=== PATIENT | female | born 1945 | race Caucasian/White ===

== ENCOUNTER → 2020-10-30 14:18 | Outpatient (CLI) | payer MEDICARE, SELFPAY ==
--- NOTE | ~2020-10-30 | XR_ITS ---
EXAMINATION: XR humerus RT, XR wrist RT w scaphoid, XR forearm RT 2V, XR elbow RT min 3V, XR shoulder RT min 2V DATE: 10/30/2020 16:04 INDICATION: Right arm pain and limited range of motion TECHNIQUE: 1. AP internally and externally rotated, AP oblique externally rotated and axillary views of the righ t shoulder were obtained. 2. Internal and externally rotated views of the right humerus were obtained. 3. AP, lateral and 2 oblique views of the right elbow were obtained. 4. AP and lateral views of the right forearm were obtained. 5. 5 views of the right wrist were obtained including PA, lateral, oblique, ulnar deviated and navicu lar views of the right wrist were obtained. COMPARISON: None FINDINGS: Right shoulder and upper arm: Normal alignment. No fracture.Mild glenohumeral osteoarthritis with mild nonuniform joint space narr owing and small marginal osteophytes. Acromioclavicular joint space is relatively preserved. Visualiz ed portions of the lungs are clear. Soft tissues are unremarkable. Right elbow, wrist and forearm: Small minimally depressed intra-articular fracture of the right radial head. There is <1 mm depressio n of the fracture fragment which comprises approximately 25% of the articular surface area with <1 mm wide fracture gap. Otherwise normal alignment at the right elbow joint with relatively preserved alfie nt space. The right elbow joint effusion is present with displacement of the anterior fat pad. Small enthesophytes at the medial and lateral epicondyles. Old healed fracture deformity of the distal right radius with 15 degrees dorsal tilt of the distal ar ticular surface. Small chronic corticated nonunited avulsion fracture fragment of the ulnar styloid p rocess. There is widening of the scapholunate interval consistent with disruption of the scapholunate ligament with secondary dorsal intercalated segment instability (DISI) with mild dorsal rotatory sub luxation of the lunate. This also likely chronic given the atypical moderate osteoarthritis at the ra dioscaphoid articulation mild osteoarthritis at the midcarpal joint consistent with secondary scaphol unate advanced collapse (SLAC) wrist. Additional more typical pattern of moderate to severe osteoarth ritis at the triscaphe and first carpal metacarpal joints and mild osteoarthritis at the distal radio ulnar joint. IMPRESSION: 1. Minimally displaced intra-articular impaction fracture of the right radial head with secondary rig ht elbow joint effusion. 2. Old healed distal radial fracture and chronic nonunited ulnar styloid avulsion fracture. 3. 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 4. 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 Reviewed, dictated and finalized at location B. IMPRESSION: 1. Minimally displaced intra-articular impaction fracture of the right radial h ead with secondary right elbow joint effusion. 2. Old healed distal radial fracture and chronic nonunited ulnar styloid avulsi on fracture. 3. Findings consistent with chronic tear of the scapholunate ligament with seco ndary dorsal intercalated segment instability (DISI) and scapholunate advanced collapse (SLAC) wrist. 4. Polyarticular osteoarthritis, mild at the right glenohumeral joint and sever e at the radial aspect of the carpus.
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
== END ==
PROVIDERS: PCP Family Medicine; Visit Provider Physician Assistant
DX: S29.9XXA Unspecified injury of thorax, initial encounter (principal); X58.XXXA Exposure to other specified factors, initial encounter; M19.011 Primary osteoarthritis, right shoulder; M19.031 Primary osteoarthritis, right wrist
CPT/HCPCS: 71046; 71110; 73030; 73060; 73080; 73090; 73110

== ENCOUNTER 2020-11-03 13:24 | Outpatient (CLI) | payer MEDICARE, SELFPAY ==
--- NOTE | ~2020-11-03 | XR_ITS ---
XR elbow RT min 3V DATE: 11/03/2020 13:32 INDICATION: Right elbow pain following fall 2010 days ago TECHNIQUE: 4 views COMPARISON: 11/09/2020 right elbow FINDINGS: Mildly comminuted minimally depressed radial head fracture is noted with no significant wu nge in position or alignment since 10/30/2020. Residual joint effusion is noted. Normal alignment. IMPRESSION: No significant change in position or alignment of intra-articular radial head fracture Reviewed, dictated and finalized at location A. IMPRESSION: No significant change in position or alignment of intra-articular r adial head fracture
== END 2020-11-03 13:25 | disposition home or self-care (01) ==
LOC: ANHBWCIMG 13:25
PROVIDERS: PCP Family Medicine; Visit Provider Orthopaedic Surgery
DX: M25.521 Pain in right elbow (principal)
CPT/HCPCS: 73080

== ENCOUNTER 2021-02-13 12:15 | Outpatient (CLI) | payer OTHER, MEDICARE, SELFPAY ==
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
== END 2021-02-13 12:16 | disposition home or self-care (01) ==
PROVIDERS: PCP Family Medicine; Visit Provider Nurse Practitioner Family
DX: M54.2 Cervicalgia (principal); M54.5 Low back pain; M25.562 Pain in left knee; M77.8 Other enthesopathies, not elsewhere classified; M43.16 Spondylolisthesis, lumbar region; M51.36 Other intervertebral disc degeneration, lumbar region; M47.812 Spondylosis without myelopathy or radiculopathy, cervical region; M17.12 Unilateral primary osteoarthritis, left knee; V89.2XXA Person injured in unspecified motor-vehicle accident, traffic, initial encounter
CPT/HCPCS: 72040; 72100; 73562

== ENCOUNTER 2022-11-10 10:51 | Outpatient (CLI) | payer MEDICARE, SELFPAY ==
--- NOTE | ~2022-11-10 | MR_ITS ---
MRI of the brain Clinical History: Memory impairment Technique: Axial and sagittal T1-weighted images were acquired. These were followed by axial T2-weigh gentry, diffusion weighted, gradient, and FLAIR images. Findings: There is no acute infarct, intracranial hemorrhage, or mass lesion. Moderate to severe intelligence operations specialist efrain white matter changes are present in the periventricular white matter bilaterally. Ventricles and subarachnoid spaces are mildly dilated. Orbits are unremarkable. Paranasal sinuses and mastoid air cells are clear. Major intracranial flow voids are intact. Sagittal midline structures are intact. IMPRESSION: No acute abnormality. Moderate to severe chronic microvascular ischemic change. Reviewed, dictated and finalized at location .
== END 2022-11-10 10:52 | disposition home or self-care (01) ==
PROVIDERS: PCP Internal Medicine; Visit Provider Student in an Organized Health Care Education/Training Program
DX: F03.90 Unspecified dementia, unspecified severity, without behavioral disturbance, psychotic disturbance, mood disturbance, and anxiety (principal)
CPT/HCPCS: 70551

== ENCOUNTER 2023-01-11 12:23 | Outpatient (CLI) | payer MEDICARE, SELFPAY ==
[2023-01-11 13:11] LABS: Rheumatoid Factor 13.3 IU/ML (<12)
[2023-01-14 17:09] LABS: SM Antibody <1.0; SM/RNP Antibody <1.0; SS-A <1.0; SS-B <1.0
[2023-01-15 12:52] LABS: Anti Glomerular Basement Memb <1.0 AI (<1.0)
[2023-01-15 13:08] LABS: Anti Nuclear Antibody Titer 1:40 (Negative)
[2023-01-19 19:33] LABS: ANCA Screen Negative (Negative)
== END 2023-01-11 12:24 | disposition home or self-care (01) ==
PROVIDERS: PCP Family Medicine; Visit Provider Internal Medicine Nephrology
DX: N18.32 Chronic kidney disease, stage 3b (principal); R76.0 Raised antibody titer
CPT/HCPCS: 36415; 82595; 83520; 86036; 86038; 86039; 86225; 86235; 86430; 87086; 87088

== ENCOUNTER 2023-04-13 12:09 | Outpatient (CLI) | payer MEDICARE, MEDICAID, SELFPAY ==
--- NOTE | ~2023-04-13 | XR_ITS ---
EXAMINATION: XR shoulder RT min 2V INDICATION: Right shoulder pain TECHNIQUE: Four views of the right shoulder are submitted. COMPARISON: 10/30/2020 FINDINGS: Normal alignment. No fracture. There is moderate osteoarthritis of the glenohumeral and acr omioclavicular joints. Soft tissues are unremarkable. IMPRESSION: 1. Osteoarthritis without acute osseous abnormality. Reviewed, dictated and finalized at location B.
--- NOTE | ~2023-04-13 | XR_ITS ---
EXAMINATION: XR hand RT 2V, XR wrist RT 2V DATE: 04/13/2023 12:42 INDICATION: Right hand and wrist injury TECHNIQUE: 1. Posteroanterior and lateral views of the right wrist were obtained. 2. Dorsal palmar and lateral views of the right hand were obtained. COMPARISON: Right wrist radiographs dated FINDINGS: Old fracture of the distal right radius which is healed with 15 degree dorsal tilt of the distal latrell cular surface. Chronic nonunited ulnar styloid avulsion fracture. No acute fractures identified. The previously seen widening at the scapholunate interval is reduced on the current study however there i s dorsal intercalated segment instability (DISI) with increased scapholunate and lunocapitate angle i s consistent with scapholunate ligament insufficiency. Moderate osteoarthritis at the scaphoid articu lation with joint space narrowing but appreciated on the prior study and consistent with secondary sc apholunate advanced collapse (SLAC) wrist. Additional more typical distribution of polyarticular oste oarthritis, severe at the first carpometacarpal joint and second distal interphalangeal joints, moder ate at the triscaphe, first metacarpophalangeal and multiple interphalangeal joints with distal predo minance and mild at the distal radioulnar, midcarpal, remaining metacarpophalangeal and second and th ird proximal interphalangeal joints. IMPRESSION: 1. Old healed distal radial fracture and chronic nonunited ulnar styloid avulsion fracture. No acute osseous abnormality. 2. Findings consistent with chronic tear of the scapholunate ligament with secondary dorsal intercalated segment instability (DISI) and scapholunate advanced collapse (SLAC) wrist. 4. Additional more typical distribution of moderate to severe polyarticular osteoarthritis most promi nent at the radial aspect of the carpus, predominantly distal interphalangeal joints. Reviewed, dictated and finalized at location A. IMPRESSION: 1. Old healed distal radial fracture and chronic nonunited ulnar styloid avulsi on fracture. No acute osseous abnormality. 2. Findings consistent with chronic tear of the scapholunate ligament with seco ndary dorsal intercalated segment instability (DISI) and scapholunate advanced collapse (SLA C) wrist. 4. Additional more typical distribution of moderate to severe polyarticular ost eoarthritis most prominent at the radial aspect of the carpus, predominantly di stal interphalangeal joints.
[2023-04-13 19:53] LABS: Creatinine Urine 59.2 mg/dL
[2023-04-13 20:03] LABS: Alanine Aminotransferase 15 U/L (6-35); Albumin Level 4.3 g/dL (3.5-5.1); Alkaline Phosphatase 57 U/L (38-126); Anion Gap 10 mmol/L (8-16); Aspartate Amino Transferase 37 U/L (14-36); Bilirubin,Total 0.5 mg/dL (0.2-1.3); Blood Urea Nitrogen 34 mg/dL (7-17); Carbon Dioxide 23 mmol/L (22-30); Chloride 108 mmol/L (98-107); Cholesterol 251 mg/dL (0-200); Estimated Glomerular Filt Rate 36; Glucose 174 mg/dL (65-110); HDL Direct 55 mg/dL; Potassium 4.1 mmol/L (3.4-5.0); Sodium 141 mmol/L (137-145); Triglycerides 153 mg/dL (<150)
[2023-04-13 20:14] LABS: LDL Cholesterol Direct 136 mg/dL
[2023-04-13 20:40] LABS: Vitamin D 25 Hydroxy 40.1 ng/mL
[2023-04-13 20:42] LABS: Hemoglobin A1C 6.2 % (<5.7)
[2023-04-13 22:19] LABS: Microalbumin Urine Random 623.4 mg/L (0-16.7)
== END 2023-04-13 12:10 | disposition home or self-care (01) ==
PROVIDERS: PCP Nurse Practitioner Adult Health; Visit Provider Nurse Practitioner Adult Health
DX: Z51.81 Encounter for therapeutic drug level monitoring (principal); E11.9 Type 2 diabetes mellitus without complications; E03.9 Hypothyroidism, unspecified; E55.9 Vitamin D deficiency, unspecified; T14.90XA Injury, unspecified, initial encounter; M19.011 Primary osteoarthritis, right shoulder; M19.041 Primary osteoarthritis, right hand; M19.031 Primary osteoarthritis, right wrist
CPT/HCPCS: 36415; 73030; 73100; 73120; 80048; 80061; 80076; 82043; 82306; 83036; 84443

== ENCOUNTER 2023-04-22 08:40 | Outpatient (CLI) | payer MEDICARE, MEDICAID, SELFPAY ==
--- NOTE | 2023-04-22 11:08 | WPDNEUROLOGY ---
Neurology EEG Report General Information Date of Study: 04/22/23 TEST Routine EEG DIAGNOSIS Rapidly progressive dementia CONDITION OF RECORDING Awake EEG NUMBER [id number] CLINICAL HISTORY Patient presenting with acute decline in cognition over the past two months, especially with memory. She has been having memory issues for the past few years. No history of seizures or abnormal involuntary movements. EEG DESCRIPTION The recording is continuos. The background is very low amplitude. A well-formed posterior dominant rhythm is not observed during the recording. On occasion, there is a well defined anterior-posterior gradient. At times, there are more clear delta, theta range waves comprising the background. There does not appear to be any significant asymmetries of the background. There was no sleep architecture observed. No epileptiform discharges or electrographic seizures were noted. Photic stimulation did not result in any abnormal paroxysmal response. IMPRESSION This is an abnormal routine EEG due to the absence of well-defined posterior dominant rhythm, and evidence of diffuse slowing. This finding is suggestive of mild to moderate encephalopathy of undetermined etiology. No epileptiform features were noted. Clinical correlation recommended.
== END 2023-04-22 08:41 | disposition home or self-care (01) ==
LOC: ANHNEURO 08:41
PROVIDERS: PCP Nurse Practitioner Adult Health; Visit Provider Student in an Organized Health Care Education/Training Program
DX: R41.81 Age-related cognitive decline (principal); R94.01 Abnormal electroencephalogram [EEG]
CPT/HCPCS: 95816

== ENCOUNTER 2023-05-06 15:01 | Outpatient (CLI) | payer MEDICARE, MEDICAID, SELFPAY ==
[2023-05-06 16:23] LABS: Basophils Percent Auto 0.6 % (0.2-1.2); Eosinophils Absolute Auto 0.1 K/mm3 (0-0.3); Eosinophils Percent Auto 2.1 % (0-4.4); Hematocrit 39.7 % (37.0-47.0); Hemoglobin 12.8 g/dL (12.0-15.0); Immature Granulocyte Absolute 0.02 K/mm3 (0.00-0.031); Immature Granulocyte Percent A 0.4 % (0-0.5); Lymphocytes Absolute Auto 0.79 K/mm3 (0.9-3.2); Lymphocytes Percent Auto 16.8 % (18.3-44.2); Mean Corpuscular HGB Conc 32.2 g/dl (32-36); Mean Corpuscular Hemoglobin 31.6 pg (26-34); Mean Platelet Volume 9.2 fl (7.4-10.4); Monocytes Absolute Auto 0.5 K/mm3 (0.1-0.6); Monocytes Percent Auto 9.8 % (2.6-8.5); Neutrophils Absolute Auto 3.3 K/mm3 (1.3-6.7); Neutrophils Percent Auto 70.3 % (45.5-73.1); Platelet Count Result 207 k/mm3 (150-375); Red Blood Count 4.05 M/mm3 (4.2-5.4); Red Cell Distribution Width 13.1 % (11.5-14.5); White Blood Count 4.7 K/mm3 (4.5-10.0)
[2023-05-06 16:45] LABS: Alanine Aminotransferase 16 U/L (6-35); Albumin Level 4.6 g/dL (3.5-5.1); Alkaline Phosphatase 55 U/L (38-126); Anion Gap 10 mmol/L (8-16); Aspartate Amino Transferase 24 U/L (14-36); Bilirubin,Total 0.5 mg/dL (0.2-1.3); Blood Urea Nitrogen 42 mg/dL (7-17); CRP < 0.5 mg/dL (<1.0); Calcium 9.6 mg/dL (8.4-10.2); Carbon Dioxide 21 mmol/L (22-30); Chloride 106 mmol/L (98-107); Estimated Glomerular Filt Rate 40; Glucose 243 mg/dL (65-110); Potassium 4.8 mmol/L (3.4-5.0); Sodium 137 mmol/L (137-145)
[2023-05-06 16:56] LABS: Erythrocyte Sedimentation Rate 24 mm/hr (0-20)
[2023-05-06 17:20] LABS: HIV 1/2 Ab P24 Ag Result Negative (Negative)
[2023-05-11 08:54] LABS: Ceruloplasmin 28 mg/dL (18-53)
[2023-05-12 13:59] LABS: Anti Nuclear Antibody Titer 1:40 (Negative)
[2023-05-12 22:39] LABS: Red Blood Cell Folate 485 ng/mL RBC (>280)
== END 2023-05-06 15:02 | disposition home or self-care (01) ==
PROVIDERS: PCP Nurse Practitioner Adult Health; Visit Provider Student in an Organized Health Care Education/Training Program
DX: F03.90 Unspecified dementia, unspecified severity, without behavioral disturbance, psychotic disturbance, mood disturbance, and anxiety (principal)
CPT/HCPCS: 36415; 80053; 82390; 82747; 85025; 85652; 86038; 86039; 86140; 86703; G0432

== ENCOUNTER 2023-05-09 13:00 | Outpatient (CLI) | payer MEDICARE, MEDICAID, SELFPAY ==
[2023-05-09 17:25] LABS: Creatinine Urine 82.6 mg/dL
[2023-05-09 17:58] LABS: MALB Creatinine Ratio 271.7 mg/g (0-30); Microalbumin Urine Random 224.4 mg/L (0-16.7)
== END 2023-05-09 13:01 | disposition home or self-care (01) ==
LOC: ANHLAB 13:02
PROVIDERS: PCP Family Medicine; Visit Provider Family Medicine
DX: E11.29 Type 2 diabetes mellitus with other diabetic kidney complication (principal); I12.9 Hypertensive chronic kidney disease with stage 1 through stage 4 chronic kidney disease, or unspecified chronic kidney disease; E03.9 Hypothyroidism, unspecified
CPT/HCPCS: 82043

== ENCOUNTER 2023-05-11 15:25 | Outpatient (CLI) | payer MEDICARE, MEDICAID, SELFPAY ==
--- NOTE | ~2023-05-11 | US_ITS ---
EXAMINATION: US renal BI DATE: 05/11/2023 16:32 INDICATION: Chronic kidney disease, stage IIIB. TECHNIQUE: Multiple ultrasound grayscale images of the kidneys were obtained. COMPARISON: None. FINDINGS: The right kidney measures 9.2 x 5.5 x 5.3 cm. The left kidney measures 9.2 x 4.7 x 4.9 cm. The kidney s demonstrate normal parenchymal echogenicity. There are cysts in the kidneys measuring up to 1.6 cm on the right. There is no hydronephrosis. The bladder is normal. IMPRESSION: 1. Normal kidney sizes. No hydronephrosis. Reviewed, dictated and finalized at location E.
== END 2023-05-11 15:26 | disposition home or self-care (01) ==
LOC: ANHIMG 15:27
PROVIDERS: PCP Family Medicine; Visit Provider Internal Medicine Nephrology
DX: N18.32 Chronic kidney disease, stage 3b (principal); E55.9 Vitamin D deficiency, unspecified
CPT/HCPCS: 76775

== ENCOUNTER 2023-05-26 07:07 | Outpatient (CLI) | payer MEDICARE, MEDICAID, SELFPAY ==
--- NOTE | 2023-05-19 14:25 | PC.NURSE ---
Pre Radiology instructions Report to the outpatient jarvis hawkins on date _05/26/23____ at time _0800 for procedure Time: __1000__ YOU MAY BE MONITORED AT HOSPITAL FOR UP TO 4 HOURS AFTER YOUR PROCEDURE. A visitor will be allowed to accompany the patient into the hospital. You and your visitor will be asked to self-screen and do not enter if you have any COVID symptoms. A mask is OPTIONAL within the hospital. Patients are to have no food or drink 6 hours prior to procedure time Driving will be restricted after the procedure, you must have a person to drive you home. Labs will be drawn in preop area and once reviewed, you will be taken to radiology area for procedure. When the procedure is completed, you will be taken to outpatient where you will be monitored for several hours. You may have one visitor in this area. Other than holding anti-coagulants, patient may take other medication(s) as scheduled. Prior to your appointment date patients are instructed to hold anti-coagulants after discussing with ordering provider to stop. If unable to discontinue anti-coagulants please notify radiologist. ? No aspirin or warfarin (Coumadin) for 7 days prior to the procedure. ? No clopidogrel (Plavix), ticagrelor (Brilinta), prasugrel (Effient) or dabigatran (Pradaxa) for 5 days prior to the procedure. ? No rivaroxaban (Xarelto), apixaban (Eliquis), dipyridamole (Aggrenox or Persantine) or cilostazol (Pletal) for 2 days prior to the procedure. Medications to discontinue per physician: __NONE Date to take last dose: Please leave all valuables, including medications, at home the day of procedure. The hospital will not accept responsibility for valuables. Wear comfortable, loose fitting clothing.? Follow any additional instructions given to you from ordering provider. Telephone instructions given to __DAUGHTER_KACY PULIDO and asked if any additional questions and then verbalized understanding. Patient advised to call scheduling provider office or registration scheduling [phone] if any additional questions.
[2023-05-19 14:30] VITALS: BMI 25.7
--- NOTE | ~2023-05-26 | XR_ITS ---
EXAMINATION: XR lumbar puncture diagnostic DATE: 05/26/2023 10:49 INDICATION: Rapidly progressive dementia TECHNIQUE: The procedure including the risks and benefits was discussed with the patient. Risks discu ssed included spinal headache, cerebrospinal fluid leak, bleeding, and infection. The patient underst ood the risks and agreed to proceed. A timeout was performed to verify the patient's name, date of , and procedure to be performed. The skin overlying the L3-L4 level was prepped and draped in usual sterile fashion. Subcutaneous 1% lidocaine was used for local anesthesia. A 22 gauge spinal n eedle was advanced via a right paramedial approach under fluoroscopic guidance. The needle was remove d and the entry site was cleaned and dressed. There were no immediate complications. A total of 3 fl uoroscopic image(s) and one lateral radiograph were obtained. The amount of fluoroscopy time used dur ing this procedure was 0.2 minutes. The patient was taken to the nursing area for observation. FINDINGS: Real-time fluoroscopy demonstrates the needle at the L3-L4 level. Opening pressure was 13 c m water. (Normal range is variably defined as 6-20 cm water and up to 25 cm water in obese patients. Pressure >25 cm water is one of the modified Dandy criteria for idiopathic intracranial hypertension) . 9 mL of clear, colorless fluid was collected in 4 tubes. IMPRESSION: 1. Successful fluoro-guided lumbar puncture. Reviewed, dictated and finalized at location A.
[2023-05-26 08:06] VITALS: BP 124/50; PULSE 50; RESP 20; TEMP 36.7; O2SAT 93
[2023-05-26 08:53] LABS: Mean Platelet Volume 9.2 fl (7.4-10.4); Platelet Count Result 192 k/mm3 (150-375)
[2023-05-26 09:09] LABS: INR 1.1; Prothrombin Time 14.5 Seconds (11.1-14.7)
[2023-05-26 09:28] LABS: Glucose Point of Care 150 mg/dl (65-105)
--- NOTE | 2023-05-26 09:44 | SUR.PREOP ---
0920-Laverne, event sales manager aware of pt HR 50 and B/P.
[2023-05-26 10:43] VITALS: BP 129/53; PULSE 49; RESP 16; O2SAT 100
[2023-05-26 11:27] LABS: Glucose CSF 66 mg/dL (40-70); Total Protein CSF 98 mg/dL (12-60)
[2023-05-26 11:40] VITALS: BP 106/63; PULSE 54; RESP 16; O2SAT 100
[2023-05-26 11:47] LABS: Appearance CSF Clear (Clear); CSF source CSF; Color CSF Colorless (Colorless)
[2023-05-26 11:48] LABS: Nucleated Cell CSF 0 /uL (0-5); Red Blood Cell CSF 3.3 (0-2)
[2023-05-26 11:50] LABS: Lymphocytes CSF 82 % (40-80); Monocytes CSF 18 % (15-45)
[2023-05-26 12:40] VITALS: BP 101/48; PULSE 51; RESP 16; O2SAT 100
--- NOTE | 2023-05-26 14:07 | SUR.PHASEII ---
1245 PATIENT DRESSED. WAITING FOR RIDE. DENIES VILLATORO/BLURRED VISION.
[2023-05-29 00:57] LABS: Angiotensi Converting Enzy CSF 8 U/L (<=15)
[2023-05-30 14:49] LABS: VDRL Quantitative CSF Nonreactive (Nonreactive)
[2023-06-01 09:28] LABS: Angiotensin Converting Enzyme <5 U/L (9-67)
[2023-06-08 17:29] LABS: Reference Lab Test Result Negative
== END 2023-05-26 13:45 | disposition home or self-care (01) ==
PROVIDERS: PCP Family Medicine; Referring Provider Student in an Organized Health Care Education/Training Program; Visit Provider Radiology Diagnostic Radiology
PROC: 009U3ZZ Drainage of Spinal Canal, Percutaneous Approach (ICD-10-PCS; CPT 62328; principal; 2023-05-26 10:00)
DX: F03.90 Unspecified dementia, unspecified severity, without behavioral disturbance, psychotic disturbance, mood disturbance, and anxiety (principal); Z01.818 Encounter for other preprocedural examination
CPT/HCPCS: 36415; 62328; 82164; 82172; 82542; 82945; 82948; 83519; 83520; 84120; 84157; 85049; 85610; 86052; 86255; 86341; 86592; 86617; 87070; 88108; 89051

== ENCOUNTER 2023-07-14 14:26 | Outpatient (CLI) | payer MEDICARE, MEDICAID, SELFPAY | END 2023-07-14 14:27 | disposition home or self-care (01) | PROVIDERS: PCP Nurse Practitioner Adult Health; Visit Provider Student in an Organized Health Care Education/Training Program | DX: F03.90 Unspecified dementia, unspecified severity, without behavioral disturbance, psychotic disturbance, mood disturbance, and anxiety (principal) | CPT/HCPCS: 36415; 84425 ==

== ENCOUNTER 2023-12-07 13:45 | Outpatient (CLI) | payer MEDICARE, MEDICAID, SELFPAY ==
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
[2023-12-07 19:11] LABS: Hematocrit 41.1 % (37.0-47.0); Hemoglobin 12.8 g/dL (12.0-15.0); Mean Corpuscular HGB Conc 31.1 g/dl (32-36); Mean Corpuscular Hemoglobin 31.6 pg (26-34); Mean Corpuscular Volume 101.5 fl (80-100); Mean Platelet Volume 9.5 fl (7.4-10.4); Platelet Count Result 243 k/mm3 (150-375); Red Blood Count 4.05 M/mm3 (4.2-5.4); Red Cell Distribution Width 13.1 % (11.5-14.5); White Blood Count 6.2 K/mm3 (4.5-10.0)
[2023-12-07 19:23] LABS: Parathyroid Intact 52.3 pg/mL (7.5-53.5)
[2023-12-07 20:07] LABS: Albumin Level 4.6 g/dL (3.5-5.1); Anion Gap 11 mmol/L (4-12); Blood Urea Nitrogen 47 mg/dL (7-17); Calcium 9.7 mg/dL (8.4-10.2); Carbon Dioxide 18 mmol/L (22-30); Chloride 111 mmol/L (98-107); Estimated Glomerular Filt Rate 29; Glucose 125 mg/dL (65-110); Phosphorus 5.5 mg/dL (2.5-4.5); Potassium 4.7 mmol/L (3.4-5.0); Sodium 140 mmol/L (137-145)
[2023-12-07 21:14] LABS: Creatinine Urine 230.7 mg/dL; Total Protein Urine Random 20 mg/dL; Ur Ttl Prot Creatinine Ratio 0.09 mg/mg (0-0.20)
== END 2023-12-07 13:46 | disposition home or self-care (01) ==
LOC: ANHBWCLAB 13:48
PROVIDERS: PCP Nurse Practitioner Adult Health; Visit Provider Internal Medicine Nephrology
DX: M17.11 Unilateral primary osteoarthritis, right knee (principal); N18.32 Chronic kidney disease, stage 3b; E83.52 Hypercalcemia; X50.1XXA Overexertion from prolonged static or awkward postures, initial encounter
CPT/HCPCS: 36415; 73562; 80069; 82570; 83970; 84156; 85027

== ENCOUNTER 2024-05-07 11:23 | Outpatient (CLI) | payer MEDICARE, MEDICAID, SELFPAY ==
[2024-05-07 18:56] LABS: Creatinine Urine 176.4 mg/dL; Total Protein Urine Random 14 mg/dL; Ur Ttl Prot Creatinine Ratio 0.08 mg/mg (0-0.20)
[2024-05-07 19:12] LABS: Albumin Level 4.4 g/dL (3.5-5.1); Anion Gap 11 mmol/L (4-12); Blood Urea Nitrogen 46 mg/dL (7-17); Carbon Dioxide 22 mmol/L (22-30); Chloride 107 mmol/L (98-107); Estimated Glomerular Filt Rate 29; Glucose 146 mg/dL (65-110); Phosphorus 4.8 mg/dL (2.5-4.5); Potassium 5.2 mmol/L (3.4-5.0); Sodium 140 mmol/L (137-145)
[2024-05-07 19:13] LABS: Hematocrit 38.3 % (37.0-47.0); Hemoglobin 11.7 g/dL (12.0-15.0); Mean Corpuscular HGB Conc 30.5 g/dl (32-36); Mean Corpuscular Hemoglobin 31.3 pg (26-34); Mean Corpuscular Volume 102.4 fl (80-100); Mean Platelet Volume 9.5 fl (7.4-10.4); Platelet Count Result 231 k/mm3 (150-375); Red Blood Count 3.74 M/mm3 (4.2-5.4); Red Cell Distribution Width 13.3 % (11.5-14.5); White Blood Count 7.3 K/mm3 (4.5-10.0)
[2024-05-07 19:38] LABS: Parathyroid Intact 35.6 pg/mL (14.5-75.2)
== END 2024-05-07 11:24 | disposition home or self-care (01) ==
PROVIDERS: PCP Nurse Practitioner Adult Health; Visit Provider Internal Medicine Nephrology
DX: N18.32 Chronic kidney disease, stage 3b (principal); E83.52 Hypercalcemia
CPT/HCPCS: 36415; 80069; 82570; 83970; 84156; 85027

== ENCOUNTER 2024-05-14 11:59 | Outpatient (CLI) | payer MEDICARE, MEDICAID, SELFPAY ==
[2024-05-14 19:19] LABS: Anion Gap 11 mmol/L (4-12); Blood Urea Nitrogen 55 mg/dL (7-17); Carbon Dioxide 20 mmol/L (22-30); Chloride 107 mmol/L (98-107); Estimated Glomerular Filt Rate 27; Glucose 190 mg/dL (65-110); Potassium 5.2 mmol/L (3.4-5.0); Sodium 138 mmol/L (137-145)
[2024-05-14 19:31] LABS: Hemoglobin A1C 6.6 % (<5.7)
== END 2024-05-14 12:00 | disposition home or self-care (01) ==
PROVIDERS: PCP Nurse Practitioner Adult Health; Visit Provider Internal Medicine Nephrology
DX: N18.32 Chronic kidney disease, stage 3b (principal); E03.9 Hypothyroidism, unspecified; E11.29 Type 2 diabetes mellitus with other diabetic kidney complication
CPT/HCPCS: 36415; 80048; 83036; 84443

== ENCOUNTER 2024-06-07 14:45 | Outpatient (CLI) | payer MEDICARE, MEDICAID, SELFPAY ==
[2024-06-07 19:36] LABS: Albumin Level 4.2 g/dL (3.5-5.1); Anion Gap 8 mmol/L (4-12); Blood Urea Nitrogen 45 mg/dL (7-17); Calcium 9.7 mg/dL (8.4-10.2); Carbon Dioxide 24 mmol/L (22-30); Chloride 107 mmol/L (98-107); Estimated Glomerular Filt Rate 39; Glucose 141 mg/dL (65-110); Potassium 5.5 mmol/L (3.4-5.0); Sodium 139 mmol/L (137-145)
== END 2024-06-07 14:46 | disposition home or self-care (01) ==
LOC: ANHBWCLAB 14:47
PROVIDERS: PCP Nurse Practitioner Adult Health; Visit Provider Internal Medicine Nephrology
DX: N18.32 Chronic kidney disease, stage 3b (principal)
CPT/HCPCS: 36415; 80069

== ENCOUNTER 2024-09-04 12:17 | Outpatient (CLI) | payer MEDICARE, MEDICAID, SELFPAY ==
--- NOTE | ~2024-09-04 | XR_ITS ---
HISTORY: W19.XXXA - Unspecified fall, initial encounter - pain COMPARISON: None TECHNIQUE: 2 views of the left humerus were performed FINDINGS: No acute or subacute fracture. Joint spaces are preserved and alignment is maintained. Soft tissues are unremarkable without foreign body or significant calcification. Age-appropriate mineralization. IMPRESSION: No acute fracture or dislocation. Reviewed, dictated and finalized at location A. VIDEOTAPE EDITOR
--- OUTSIDE RECORDS SUMMARY | 2024-09-04 13:18 | XMS_ITS | Continuity of Care Document ---
Author Organization [facility] Address [address] [place] [address] [address] [place] [address] Phone Care Team Providers Care Keg Varnisher Name Role Phone Kaylen Dominguez Unavailable Unavailable Procedures Procedure Date Eye Exam, New Patient Advance Directives Directive Yes / No Effective Date File Name No Information Encounters Encounter Description Practice Location Reason(s) For Visit Diagnoses Date Provider Providers Copied on Encounter [facility], [id number] [place] [address] [address], [place], [place], [id number], [place] tel:[phone] [facility] No Information [address] , [address], [place], [address], [place]. tel:[phone] Family History Family Member Type Diagnosis Age At Onset No Information Payers Payer name Insurance type Covered republican ID Authoriza tielizabeth(s) [facility] Commercial CI [id number] Social History Type Description Quantity Date Captured Comments Sex Female Smoking Status No Information Chief Complaint And Reason For Visit No Information Reason For Referral Reason For Referral No Information History Of Present Illness Encounter Date Complaint History Of Prese nt Illness No Information Functional Status Date Functional Assessmen t No Information Instructions Date Instruction Additional Infor mation No Information Assessments Type Assessment Date No Information Patient Care Teams Name Effective Dates (start - stop) Status Members No Information
--- OUTSIDE RECORDS SUMMARY | 2024-09-04 13:18 | XMS_ITS | Clinical Summary ---
Author Organization [facility] Address [address] [place] [address] Care Team Providers Care Optical Designer Name Role Phone No, Physician Primary Care Provider [phone] Allergies No known active allergies Medications metFORMIN XR (GLUCOPHAGE XR) 500 mg 24 hr tablet Take 1,000 mg by mouth nightly 1 Active Lumigan 0.01 % ophthalmic drops Administer 1 drop into both eyes nightly 2 Active tobramycin (TOBREX) 0.3 % ophthalmic solution Administer 1 drop into both eyes every 6 (six) hours For 5 days to affected eye(s) 2 Active HYDROcodone-clinton taminophen (NORCO) 5-325 mg per tabletIndicatio ns:Pain Take 1 tablet by mouth every 6 (six) hours as needed for pain 20 tablet 2 Active Additional Information Patient not taking.Informant: Self, Reported on 01/05/2022 aspirin 81 mg enteric coated tablet Take 81 mg by mouth daily Active baclofen (LIORESAL) 5 mg tablet Take 0.5 tablets (2.5 mg total) by mouth 3 (three) times a day as needed for muscle spasms 60 tablet 2 Active Additional Information Patient not taking.Informant: Self, Reported on 01/05/2022 lidocaine (LIDODERM) 5 % Place 1 patch on the skin nightly Remove & discard patch within 12 hours or as directed by MD. 30 patch 2 Active Additional Information Patient not taking.Informant: Self, Reported on 01/05/2022 Active Problems Problem Noted Date Diagnosed Date Cervical disc disorder with myelopathy of mid-cervical region 12/15/2021 Overview (12/15/2021): Added automatically from request for surgery [id number] Cervical radiculopathy due to intervertebral dis c disorder 12/15/2021 Overview (12/15/2021): Added automatically from request for surgery [id number] Glaucoma 11/13/2021 Benign essential HTN 11/06/2021 DELFINA (acute kidney injury) 11/06/2021 C2 cervical fracture (CMS/HCC) 11/06/2021 DVT prophylaxis 11/06/2021 Cervical compression fracture, initial encounter 11/06/2021 Paresthesia of left upper extremity 07/27/2017 Paresthesia of right upper extremity 07/27/2017 Type 2 diabetes mellitus 12/08/2013 Overview (10/29/2016): DMII WO CMP UNCNTRLD Pain in thoracic spine 12/08/2013 Overview (10/29/2016): PAIN IN THORACIC SPINE Abdominal pain Encounters Date Type Department Care Team Description 09/03/2024 1:40 PM MEAT PROCESS WORKER - 09/03/2024 6:32 PM RUST Emergency [facility] Emergency Department [address] [place] [address] Kory Holm MD Fall, initial encounter (Primary Dx) Discharge Disposition: Discharge to home or self care from Last 3 Months Immunizations Name Administration Dates Next Due Influenza, Quadrivalent, Hig h Dose, Preservative Free, Intrr 05/13/2021,06/02/2020 Influenza, Split 07/06/2013 Influenza, Trivalent, High D ose, Split, Preservative Free, Intramuscular 04/27/2019,04/24/2018,05/25/2017,04/08,05/05/2015 Pneumococcal Conjugate PCV 13 08/01/2018 Pneumococcal Polysaccharide PPV23 08/17/2019 Tdap 04/07/2024 Surgical History Surgery Date Site/Laterality Comments APPENDECTOMY 07/25/1979 - 07/24/1980 Medical History Medical History Date Comments Hypertension Diabetes mellitus (HCC) Arthritis Renal insufficiency Glaucoma 11/13/2021 Allergic rhinitis Type 2 diabetes mellitus (HCC) u se metformin History of blood product transfusion years ago when they did appendectomy Dry skin arms,dry and sca bbed Wears contact lenses Family History Medical History Relation Name Comments Cancer Daughter Cancer, unknown type Father at 77 dementia Mother in her 80s Relation Name Status Comments Daughter Father Mother Social History Tobacco Use Types Packs/Day Years Used Date Smoking Tobacco: Former Cigarettes Q uit: 2000 Smokeless Tobacco: Never Alcohol Use Standard Drinks/Week Comments No 0 (1 standard drink = 0.6 oz pur e alcohol) Social Connection and Isolation Panel [NHANES] A nswer Date Recorded In a typical week, how many times do you talk on the phone with family, friends, or neighbors? Three times a week 11/16/2021 How often do you get togethe r with friends or relatives? Three times a week 11/16/2021 How often do you attend chur ch or religion services? Never 11/16/2021 Do you belong to any clubs o r organizations such as restorationist groups, unions, fraternal or athletic groups, or school groups? No 11/16/2021 How often do you attend meet ings of the clubs or organizations you belong to? Never 11/16/2021 Are you , , di vorced, , never , or living with a partner? 11/16/2021 AUDIT-C Answer Date Recorded Q1: How often do you have a drink containing alc ohol? Monthly or less 01/05/2022 Q2: How many drinks containi ng alcohol do you have on a typical day when you are drinking? 1 or 2 01/05/2022 Q3: How often do you have si x or more drinks on one occasion? Never 01/05/2022 Overall Financial Resource Strain (CARDIA) Answe r Date Recorded How hard is it for you to pa y for the very basics like food, housing, medical care, and heating? Not hard at all 11/16/2021 PHQ-2 Answer Date Recorded PHQ-2 Total Score (If total score is 3 or more points, staff should administer the PHQ-9) 0 11/13/2021 PRAPARE - Transportation Answer Date Re corded In the past 12 months, has l ack of transportation kept you from medical appointments or from getting medications? No 10/24 In the past 12 months, has l ack of transportation kept you from meetings, work, or from getting things needed for daily living? No 11/16/2021 Personal Safety Answer Date Recorded Have you ever been in or are you currently in a harmful physical or emotional relationship or is someone making you feel afraid or unsafe? 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 [employer] Not on file Not on file Not on file Obstetrics History Last Filed Vital Signs Vital Sign Reading Time Taken Comments Blood Pressure 134/81 09/03/2024 6:00 PM MEAT PROCESS WORKER Pulse 65 09/03/2024 6:00 PM MEAT PROCESS WORKER Temperature 36.1 C (97 F) 09/03/2024 8:39 AM MEAT PROCESS WORKER Respiratory Rate 16 09/03/2024 8:39 AM MEAT PROCESS WORKER Oxygen Saturation 98% 09/03/2024 6:00 PM MEAT PROCESS WORKER Inhaled Oxygen Concentration - - Weight 76.7 kg (169 lb) 09/03/2024 8:39 AM MEAT PROCESS WORKER Height 162.6 cm (5' 4 ) 04/07/2024 3:01 PM CDT Body Mass Index 29.01 04/07/2024 3:01 PM CDT Plan of Treatment Health Maintenance Due Date Last Done Comments Albumin Creatinine Ratio, Urine 1944 Osteoporosis Screening-Bone Density Scan 1945 Dilated Eye Exam 1944 Foot Exam 1944 Hepatitis B Screening 01/02/1962 Zoster Vaccine (1 of 2) 01/02/1994 Well Visit 65+ 01/02/2009 Lipid Panel 07/29/2018 07/29/2017 Hemoglobin A1C 05/08/2022 11/06/2021, 07/29/2017 Depression Screening 11/13/2022 11/13/2021, 11/14/19 Fall Risk Assessment 01/05/2023 01/05/2022 Covid-19 Vaccine (2023-08 5 season) 2024 08/03/2021, 12/20/2020, 11/22/2020 Influenza Vaccine (#1) 2024 , 06/02/2020, 04/27/2019, Additional history exists eGFR 09/03/2025 09/03/2024, 12/23, 11/19/2021, Additional history exists DTaP/Tdap/Td Vaccine (2 - Td or Tdap) 04/07/2034 04/07/2024 Pneumococcal vaccine 65+ Completed 08/17/2019, 02/2019 Procedures Procedure Name Priority Date/Time Associated Diagnosis Comments TROPONIN T HIGH-SENSITIVITY 4-HR Timed 09/03/2024 3:23 PM MEAT PROCESS WORKER URINALYSIS, MICROSCOPIC ONLY STAT 09/03/2024 12:46 PM MEAT PROCESS WORKER URINALYSIS AND REFLEX TO MICROSCOPIC AND CULTURE STAT 09/03/2024 12:46 [address] CERVICAL SPINE WO CONTRAST ED 09/03/2024 12:24 PM MEAT PROCESS WORKER CT HEAD WO CONTRAST ED 09/03/2024 1 2:24 PM MEAT PROCESS WORKER EGFR STAT 09/03/2024 10:33 AM MEAT PROCESS WORKER DIFFERENTIAL AUTO STAT 09/03/2024 10: 33 AM MEAT PROCESS WORKER TROPONIN T HIGH-SENSITIVITY SERIES (BASELINE, 2HR, 4HR, 6HR) STAT 09/03/2024 10:33 AM MEAT PROCESS WORKER COMPREHENSIVE METABOLIC PANEL STAT 09/03/2024 10:33 AM MEAT PROCESS WORKER CBC WITH AUTO DIFFERENTIAL STAT 09/03/2024 10:33 AM MEAT PROCESS WORKER ECG 12-LEAD STAT 09/03/2024 8:46 AM MEAT PROCESS WORKER HEMOGLOBIN A1C Routine 11/06/2021 8:28 PM CDT LIPID PANEL Routine 07/29/2017 4:39 AM MEAT PROCESS WORKER from Last 3 Months or Most Recently Relevant to Health Maintenance Results * (ABNORMAL) Troponin T high-sensitivity 4-hour (09/03/2024 3:23 PM MEAT PROCESS WORKER) Trop T hs 15(H) <=14 ng/L Comment: Interpretive Data For further hscTnT resources including the diagnostic algorithm and an aid in interpretation, copy and paste this link: https://nrl.testcatalog.org/show/hsTrop Current Interpretive Data last revised 2020. Trop T hs delta 1 ng/L [facility] ([place]) Trop T hs interp Insignificant [facility] ([place]) Blood 09/03/2024 3:23 PM MEAT PROCESS WORKER 09/03/2024 3:27 PM MEAT PROCESS WORKER Dandre Geronimo MD LAB BLOOD ORDERABLES Final R esult [facility] ([place]) 1 [facility] Department [place] [address] * (ABNORMAL) Urinalysis reflex to microscopic and culture Urine (09/03/2024 12:46 PM MEAT PROCESS WORKER) Color, ur Yellow Yellow Clarity, ur Turbid(A) Clear [facility] ([place]) Specific gravity, ur 1.020 1.003 - 1.030 [facility] ([place]) pH, urine 5.5 [facility] ([place]) Comment: Interpretive Data U rine pH is affected by diet, medications, systemic acid-base disturbances, and renal tubular function. pH may affect urinary stone formation. For example, urine pH below 6.0 may help reduce the tendency for calcium phosphate stones and pH greater than 6.0 may reduce the tendency for uric acid stone formation. Source: [facility] Current Interpretive Data was last revised on 2017 Protein, ur ql 1+(A) Negative [facility] ([place]) Glucose, ur ql Negative Negative [facility] ([place]) Ketones, ur Negative Negative [facility] ([place]) Bilirubin, ur Negative Negative [facility] ([place]) Blood, ur Trace(A) Negative [facility] ([place]) Urobilinogen, ur <2.0 <2.0 mg/dL [facility] ([place]) Nitrite, ur Negative Negative [facility] ([place]) Leukocyte esterase, ur 1+(A) Negative [facility] ([place]) UA reflex comment Reflex to microscopic UA will be performed. [facility] ([place]) Urine 09/03/2024 12:4 6 PM MEAT PROCESS WORKER 09/03/2024 12:49 PM MEAT PROCESS WORKER Dandre Geronimo MD LAB MICROBIOLOGY - GENERAL O RDERABLES Final Result Performing Organization Address City/[facility]/ZIP Co de Phone Number [facility] ([place]) 1 [facility] [place] [address] * (ABNORMAL) Urinalysis, microscopic only (09/03/2024 12:46 PM MEAT PROCESS WORKER) WBC, ur 6-10(A) 0 - 5 /HPF RBC, ur 0-2 0 - 2 /HPF [facility] ([place]) Epithelial cells, squamous, ur 21-50(A) 0 - 5 /HPF [facility] ([place]) Bacteria, ur 4+(A) [facility] ([place]) Mucous, ur Present(A) [facility] ([place]) Hyaline casts, ur 11-20(A) 0 - 10 /LPF [facility] Culture Reflex Comment Reflex conditions for urine culture (WBC >10) not met. [facility] ([place]) Urine 09/03/2024 12:4 6 PM MEAT PROCESS WORKER 09/03/2024 12:49 PM MEAT PROCESS WORKER Dandre Geronimo MD LAB URINE ORDERABLES Final R esult Performing Organization Address City/[facility]/ZIP Co de Phone Number [facility] ([place]) 1 [facility] [place] [address] * CT Cervical Spine WO Contrast (09/03/2024 12:24 PM MEAT PROCESS WORKER) Anatomical Region Laterality Modality Spine N/A Computed Tomogra phy 09/03/2024 12:3 5 PM MEAT PROCESS WORKER Narrative 09/03/2024 12:49 PM MEAT PROCESS WORKER EXAM DESCRIPTION: CT HEAD WO CONTRAST; CT CERVICAL SPINE WO CONTRAST REASON FOR STUDY: fall x 1 day ago Pt arrives to ED via POV with granddaughter after a fall yesterday in the shower. Pt denies hitting her head, LOC, back or neck pain. Pt c/o dizziness this morning. Pt ax 3. Pt has hx of dementia. ; fall Pt arrives to ED via POV with granddaughter after a fall yesterday in the shower. Pt denies hitting her head, LOC, back or neck pain. Pt c/o dizziness this morning. Pt ax 3. Pt has hx of dementia. TECHNIQUE: Axial images acquired through the brain without intravenous contrast. Axial images through the cervical spine with sagittal and coronal reformatted images. Images stored on PACS. Automated exposure control was used as a dose optimization technique for this examination. COMPARISON: 04/07/2024. FINDINGS: HEAD BRAIN: No hemorrhage, edema or mass effect. No gross CT evidence for recent infarct. Unchanged periventricular and subcortical white matter hypoattenuation, likely chronic microvascular ischemia. Unchanged mild cerebral volume loss with unchanged ventricular size. No suspicious vascular hyperdensity is seen... There are intracranial athero sclerotic calcifications EXTRA-AXIAL SPACES: No fluid collections. No masses. CALVARIUM: No fracture. SINUSES/MASTOIDS: No fluid or mucosal thickening. ORBITS: Postoperative changes from lens replacements. No gross acute finding. CERVICAL SPINE ALIGNMENT: Mild reversal of the normal cervical lordosis, unchanged from the previous exam. VERTEBRAE: Unchanged vertebral body heights with areas of degenerative endplate irregularity. No acute fracture or aggressive bone lesion. No paravertebral soft tissue thickening is seen. Degenerative thickening is noted at the atlantoaxial articulation, partially calcified and unchanged.. Unchanged lucency in the left lateral base of dens, probably degenerative DISCS: Unchanged multilevel degenerative disc disease, moderate at multiple levels. HARDWARE: None in the spine. INDIVIDUAL DISC LEVELS: There are multiple posterior disc osteophyte complexes. There is at least moderate spinal canal stenosis at C4-C5 C5-C6 and C6-C7. There is multilevel facet osteoarthritis, which is up to severe at multiple levels. Multilevel uncovertebral osteoarthritis. There is up to moderate to severe osseous neural foraminal stenosis on the right at C4-C5 UPPER THORACIC: Incompletely imaged. No significant osseous spinal stenosis or osseous neural foraminal stenosis. LUNG APICES: No significant abnormality. NECK SOFT TISSUES: Athero sclerotic calcifications are noted in the carotid arteries OTHER: No other significant findings. IMPRESSION: No acute intracranial findings. No evidence of acute fracture in the cervical spine. Multilevel cervical degenerative disc and joint disease with at least moderate spinal canal stenosis at C4-C5, C5-C6 and C6-C7. Degree of stenosis would be better assessed by MRI, if clinically warranted. THIS IS AN ELECTRONICALLY VERIFIED FINAL REPORT 09/03/2024 12:49 PM - Electronically signed by Amauri Wilkinson M.D. MZ: SEAN Report ID: [id number] Reading Location: [place] [address] Procedure Note Amauri Wilkinson MD - 09/03/2024 EXAM DESCRIPTION: CT HEAD WO CONTRAST; CT CERVICAL SPINE WO CONTRAST REASON FOR STUDY: fall x 1 day ago Pt arrives to ED via POV with granddaughter after a fall yesterday in the shower. Pt denies hitting her head, LOC, back or neck pain. Pt c/odizziness this morning. Pt ax 3. Pt has hx of dementia. ; fall Pt arrives to ED via POV with granddaughter after a fall yesterday in the shower. Pt denies hitting her head, LOC, back or neck pain. Pt c/odizziness this morning. Pt ax 3. Pt has hx of dementia. TECHNIQUE: Axial images acquired through the brain without intravenous contrast. Axial images through the cervical spine with sagittal andcoronal reformatted images. Images stored on PACS. Automated exposure control was used as a dose optimization technique for this examination. COMPARISON: 04/07/2024. FINDINGS: HEAD BRAIN: No hemorrhage, edema or mass effect. No gross CT evidence forrecent infarct. Unchanged periventricular and subcortical white matter hypoattenuation, likely chronic microvascular ischemia. Unchanged mild cerebral volume loss with unchanged ventricular size. No suspiciousvascular hyperdensity is seen... There are intracranial athero sclerotic calcifications EXTRA-AXIAL SPACES: No fluid collections. No masses. CALVARIUM: No fracture. SINUSES/MASTOIDS: No fluid or mucosal thickening. ORBITS: Postoperative changes from lens replacements. No gross acute finding. CERVICAL SPINE ALIGNMENT: Mild reversal of the normal cervical lordosis, unchanged fromthe previous exam. VERTEBRAE: Unchanged vertebral body heights with areas of degenerative endplate irregularity. No acute fracture or aggressive bone lesion. No paravertebral soft tissue thickening is seen. Degenerative thickening is noted at the atlantoaxial articulation, partially calcified andunchanged.. Unchanged lucency in the left lateral base of dens, probably degenerative DISCS: Unchanged multilevel degenerative disc disease, moderate atmultiple levels. HARDWARE: None in the spine. INDIVIDUAL DISC LEVELS: There are multiple posterior disc osteophyte complexes. There is at least moderate spinal canal stenosis at C4-Q7D9-S9 and C6-C7. There is multilevel facet osteoarthritis, which is up tosevere at multiple levels. Multilevel uncovertebral osteoarthritis. There is up to moderate to severe osseous neural foraminal stenosis on the right at C4-C5 UPPER THORACIC: Incompletely imaged. No significant osseous spinalstenosis or osseous neural foraminal stenosis. LUNG APICES: No significant abnormality. NECK SOFT TISSUES: Athero sclerotic calcifications are noted in thecarotid arteries OTHER: No other significant findings. IMPRESSION: No acute intracranial findings. No evidence of acute fracture in the cervical spine. Multilevel cervical degenerative disc and joint disease with at least moderate spinal canal stenosis at C4-C5, C5-C6 and C6-C7. Degree ofstenosis would be better assessed by MRI, if clinically warranted. THIS IS AN ELECTRONICALLY VERIFIED FINAL REPORT 09/03/2024 12:49 PM - Electronically signed by Amauri Wilkinson M.D. MZ: SEAN Report ID: [id number] Reading Location: [id number] Can Delgado NP IMG CT PROCEDURES Final Res ult * CT Head WO Contrast (09/03/2024 12:24 PM MEAT PROCESS WORKER) Anatomical Region Laterality Modality Head and Neck N/A Computed Tomogra phy 09/03/2024 12:3 5 PM MEAT PROCESS WORKER Narrative 09/03/2024 12:49 PM MEAT PROCESS WORKER EXAM DESCRIPTION: CT HEAD WO CONTRAST; CT CERVICAL SPINE WO CONTRAST REASON FOR STUDY: fall x 1 day ago Pt arrives to ED via POV with granddaughter after a fall yesterday in the shower. Pt denies hitting her head, LOC, back or neck pain. Pt c/o dizziness this morning. Pt ax 3. Pt has hx of dementia. ; fall Pt arrives to ED via POV with granddaughter after a fall yesterday in the shower. Pt denies hitting her head, LOC, back or neck pain. Pt c/o dizziness this morning. Pt ax 3. Pt has hx of dementia. TECHNIQUE: Axial images acquired through the brain without intravenous contrast. Axial images through the cervical spine with sagittal and coronal reformatted images. Images stored on PACS. Automated exposure control was used as a dose optimization technique for this examination. COMPARISON: 04/07/2024. FINDINGS: HEAD BRAIN: No hemorrhage, edema or mass effect. No gross CT evidence for recent infarct. Unchanged periventricular and subcortical white matter hypoattenuation, likely chronic microvascular ischemia. Unchanged mild cerebral volume loss with unchanged ventricular size. No suspicious vascular hyperdensity is seen... There are intracranial athero sclerotic calcifications EXTRA-AXIAL SPACES: No fluid collections. No masses. CALVARIUM: No fracture. SINUSES/MASTOIDS: No fluid or mucosal thickening. ORBITS: Postoperative changes from lens replacements. No gross acute finding. CERVICAL SPINE ALIGNMENT: Mild reversal of the normal cervical lordosis, unchanged from the previous exam. VERTEBRAE: Unchanged vertebral body heights with areas of degenerative endplate irregularity. No acute fracture or aggressive bone lesion. No paravertebral soft tissue thickening is seen. Degenerative thickening is noted at the atlantoaxial articulation, partially calcified and unchanged.. Unchanged lucency in the left lateral base of dens, probably degenerative DISCS: Unchanged multilevel degenerative disc disease, moderate at multiple levels. HARDWARE: None in the spine. INDIVIDUAL DISC LEVELS: There are multiple posterior disc osteophyte complexes. There is at least moderate spinal canal stenosis at C4-C5 C5-C6 and C6-C7. There is multilevel facet osteoarthritis, which is up to severe at multiple levels. Multilevel uncovertebral osteoarthritis. There is up to moderate to severe osseous neural foraminal stenosis on the right at C4-C5 UPPER THORACIC: Incompletely imaged. No significant osseous spinal stenosis or osseous neural foraminal stenosis. LUNG APICES: No significant abnormality. NECK SOFT TISSUES: Athero sclerotic calcifications are noted in the carotid arteries OTHER: No other significant findings. IMPRESSION: No acute intracranial findings. No evidence of acute fracture in the cervical spine. Multilevel cervical degenerative disc and joint disease with at least moderate spinal canal stenosis at C4-C5, C5-C6 and C6-C7. Degree of stenosis would be better assessed by MRI, if clinically warranted. THIS IS AN ELECTRONICALLY VERIFIED FINAL REPORT 09/03/2024 12:49 PM - Electronically signed by Amauri Wilkinson M.D. MZ: SEAN Report ID: [id number] Reading Location: [id number] Procedure Note Amauri Wilkinson MD - 09/03/2024 EXAM DESCRIPTION: CT HEAD WO CONTRAST; CT CERVICAL SPINE WO CONTRAST REASON FOR STUDY: fall x 1 day ago Pt arrives to ED via POV with granddaughter after a fall yesterday in the shower. Pt denies hitting her head, LOC, back or neck pain. Pt c/odizziness this morning. Pt ax 3. Pt has hx of dementia. ; fall Pt arrives to ED via POV with granddaughter after a fall yesterday in the shower. Pt denies hitting her head, LOC, back or neck pain. Pt c/odizziness this morning. Pt ax 3. Pt has hx of dementia. TECHNIQUE: Axial images acquired through the brain without intravenous contrast. Axial images through the cervical spine with sagittal andcoronal reformatted images. Images stored on PACS. Automated exposure control was used as a dose optimization technique for this examination. COMPARISON: 04/07/2024. FINDINGS: HEAD BRAIN: No hemorrhage, edema or mass effect. No gross CT evidence forrecent infarct. Unchanged periventricular and subcortical white matter hypoattenuation, likely chronic microvascular ischemia. Unchanged mild cerebral volume loss with unchanged ventricular size. No suspiciousvascular hyperdensity is seen... There are intracranial athero sclerotic calcifications EXTRA-AXIAL SPACES: No fluid collections. No masses. CALVARIUM: No fracture. SINUSES/MASTOIDS: No fluid or mucosal thickening. ORBITS: Postoperative changes from lens replacements. No gross acute finding. CERVICAL SPINE ALIGNMENT: Mild reversal of the normal cervical lordosis, unchanged fromthe previous exam. VERTEBRAE: Unchanged vertebral body heights with areas of degenerative endplate irregularity. No acute fracture or aggressive bone lesion. No paravertebral soft tissue thickening is seen. Degenerative thickening is noted at the atlantoaxial articulation, partially calcified andunchanged.. Unchanged lucency in the left lateral base of dens, probably degenerative DISCS: Unchanged multilevel degenerative disc disease, moderate atmultiple levels. HARDWARE: None in the spine. INDIVIDUAL DISC LEVELS: There are multiple posterior disc osteophyte complexes. There is at least moderate spinal canal stenosis at C4-A8C9-I1 and C6-C7. There is multilevel facet osteoarthritis, which is up tosevere at multiple levels. Multilevel uncovertebral osteoarthritis. There is up to moderate to severe osseous neural foraminal stenosis on the right at C4-C5 UPPER THORACIC: Incompletely imaged. No significant osseous spinalstenosis or osseous neural foraminal stenosis. LUNG APICES: No significant abnormality. NECK SOFT TISSUES: Athero sclerotic calcifications are noted in thecarotid arteries OTHER: No other significant findings. IMPRESSION: No acute intracranial findings. No evidence of acute fracture in the cervical spine. Multilevel cervical degenerative disc and joint disease with at least moderate spinal canal stenosis at C4-C5, C5-C6 and C6-C7. Degree ofstenosis would be better assessed by MRI, if clinically warranted. THIS IS AN ELECTRONICALLY VERIFIED FINAL REPORT 09/03/2024 12:49 PM - Electronically signed by Amauri Wilkinson M.D. MZ: SEAN Report ID: [id number] Reading Location: [id number] Can Delgado NP IMG CT PROCEDURES Final Res ult * Troponin T high-sensitivity series (baseline, 2hr, 4hr, 6hr) (09/03/2024 10:33 AM MEAT PROCESS WORKER) Trop T hs 14 <=14 ng/L Comment: Interpretive Data For further hscTnT resources including the diagnostic algorithm and an aid in interpretation, copy and paste this link: https://nrl.testcatalog.org/show/hsTrop Current Interpretive Data last revised 2020. Blood 09/03/2024 10:3 3 AM MEAT PROCESS WORKER 09/03/2024 10:36 AM MEAT PROCESS WORKER Dandre Geronimo MD LAB BLOOD ORDERABLES Final R esult Performing Organization Address City/[facility]/ZIP Co de Phone Number ANGELIQUE PINEDA ([place]) [address] [place] [address] [employer] [place] [address] * (ABNORMAL) eGFR (09/03/2024 10:33 AM MEAT PROCESS WORKER) eGFR 32(L) >=60 mL/min/1. 73 m2 Comment: Interpretive Data Reference Interval Normal >/= 90 mL/min/1.73m2 Mildly decreased* 60 - 89 mL/min/1.73m2 Mildly to moderately decreased 45 - 59 mL/min/1.73m2 Moderately to severely decreased 30 - 44 mL/min/1.73m2 Severely decreased 15 - 29 mL/min/1.73m2 Kidney Failure < 15 mL/min/1.73m2 *Relative to young adult level Estimated glomerular filtration rate is determined by the 2020 CKD-EPI equation recommended by the National Kidney Foundation (A Unifying Approach to GFR Estimation: Recommendations of the NKF-ASK Task Force on Reassessing the Inclusion of Race in Diagnosing Kidney Disease, JASN 2020). The CKD-EPI equation should not be used for patients with unstable renal function and has not been validated in children and those over 70. Current interpretive data was last reviewed 2021. Blood 09/03/2024 10:3 3 AM MEAT PROCESS WORKER 09/03/2024 10:36 AM MEAT PROCESS WORKER Dandre Geronimo MD LAB BLOOD ORDERABLES Final R esult ANGELIQUE PINEDA ([place]) 1 [facility] Department [place] [address] * (ABNORMAL) Differential, auto (09/03/2024 10:33 AM MEAT PROCESS WORKER) Neutrophil abs 3.7 1.5 - 6.5 K/cumm Imm gran abs 0.0 0.0 - 0.1 K/cumm [facility] ([place]) Lymphocyte abs 0.4(L) 0.8 - 3.3 K/cumm [facility] ([place]) Monocyte abs 0.6 0.2 - 0.8 K/cumm [facility] ([place]) Eosinophil abs 0.0 0.0 - 0.5 K/cumm [facility] ([place]) Basophil abs 0.0 0.0 - 0.1 K/cumm [facility] ([place]) Neutrophil pct 79.1 % [facility] ([place]) Comment: Consistent with previous result Interpretive Data Percent cell count reference ranges are not reported, since discordance with absolute values may lead to misinterpretation of CBC data. Current Interpretive Data was last revised on 2017. Imm gran pct 0.4 % [facility] ([place]) Comment: Interpretive Data Percent cell count reference ranges are not reported, since discordance with absolute values may lead to misinterpretation of CBC data. Current Interpretive Data was last revised on 2017. Lymphocyte pct 8.0 % [facility] ([place]) Comment: Interpretive Data Percent cell count reference ranges are not reported, since discordance with absolute values may lead to misinterpretation of CBC data. Current Interpretive Data was last revised on 2017. Monocyte pct 11.9 % [facility] ([place]) Comment: Interpretive Data Percent cell count reference ranges are not reported, since discordance with absolute values may lead to misinterpretation of CBC data. Current Interpretive Data was last revised on 2017. Eosinophil pct 0.2 % [facility] ([place]) Comment: Interpretive Data Percent cell count reference ranges are not reported, since discordance with absolute values may lead to misinterpretation of CBC data. Current Interpretive Data was last revised on 2017. Basophil pct 0.4 % [facility] ([place]) Comment: Interpretive Data Percent cell count reference ranges are not reported, since discordance with absolute values may lead to misinterpretation of CBC data. Current Interpretive Data was last revised on 2017. Blood 09/03/2024 10:3 3 AM MEAT PROCESS WORKER 09/03/2024 10:36 AM MEAT PROCESS WORKER Dandre Geronimo MD LAB BLOOD ORDERABLES Final R esult ANGELIQUE PINEDA ([place]) 1 [facility] Department [place] [address] * (ABNORMAL) CBC with auto differential (09/03/2024 10:33 AM MEAT PROCESS WORKER) WBC 4.6 3.8 - 9.9 K/cumm Hgb 12.2 11.9 - 15.5 g/dL [facility] ([place]) Hct 36.9 35.6 - 45.5 % [facility] ([place]) Plt 175 150 - 400 K/cumm [facility] ([place]) MPV 9.0(L) 9.1 - 12.3 fL [facility] ([place]) RBC 3.83(L) 3.90 - 5.20 M/cumm [facility] ([place]) MCV 96.3 81.3 - 96.4 fL [facility] ([place]) MCH 31.9 27.1 - 33.3 pg [facility] ([place]) MCHC 33.1 32.3 - 35.7 g/dL [facility] ([place]) RDW CV 13.2 11.1 - 14.9 % [facility] ([place]) RDW SD 47.1 35.7 - 48.1 fL [facility] ([place]) NRBC abs 0.00 0.00 - 0.01 K/cumm [facility] Blood 09/03/2024 10:3 3 AM MEAT PROCESS WORKER 09/03/2024 10:36 AM MEAT PROCESS WORKER us Dandre Geronimo MD LAB BLOOD ORDERABLES Final R esult ANGELIQUE PINEDA ([place]) 1 [facility] Department [place] [address] * (ABNORMAL) Comprehensive metabolic panel (09/03/2024 10:33 AM MEAT PROCESS WORKER) Pathologist [facility] Sodium 135 135 - 145 mmol/L Potassium, pl 3.9 3.3 - 4.9 mmol/L [facility] ([place]) Chloride 102 97 - 110 mmol/L [facility] ([place]) CO2 18(L) 22 - 32 mmol/L [facility] ([place]) Anion gap 15 2 - 15 mmol/L [facility] ([place]) BUN 47(H) 6 - 25 mg/dL [facility] ([place]) Creatinine 1.62(H) 0.60 - 1.10 mg/dL [facility] ([place]) Glucose 222(H) 70 - 199 mg/dL [facility] ([place]) Comment: Interpretive Data Fasting glucose >/= 126 mg/dl is diagnostic for diabetes. Fasting is defined as no caloric intake for at least 8 hours. Fasting glucose between 100 mg/dl to 125 mg/dl is diagnostic of prediabetes. In a patient with classic symptoms of hyperglycemia or hyperglycemic crisis, a random glucose >/= 200 mg/dl is diagnostic for diabetes. In the absence of unequivocal hyperglycemia, results should be confirmed by repeat testing. The classification and Diagnosis of Diabetes Diabetes Care 2021; 46: S19-S40. Current interpretive data was last revised 2022. Calcium 9.3 8.5 - 10.3 mg/dL [facility] ([place]) Bilirubin, total 0.5 0.1 - 1.2 mg/dL [facility] ([place]) Protein, pl 7.1 6.5 - 8.5 g/dL [facility] ([place]) Albumin 4.3 3.5 - 5.0 g/dL [facility] ([place]) Alk phos 67 40 - 130 Units/L [facility] ([place]) ALT 18 7 - 45 Units/L [facility] ([place]) AST 22 10 - 45 Units/L [facility] ([place]) Blood 09/03/2024 10:3 3 AM MEAT PROCESS WORKER 09/03/2024 10:36 AM MEAT PROCESS WORKER us Dandre Geronimo MD LAB BLOOD ORDERABLES Final R esult [facility] 1 [facility] Department [place] [address] * ECG 12 lead (09/03/2024 8:46 AM MEAT PROCESS WORKER) 09/03/2024 8:46 AM MEAT PROCESS WORKER Narrative [facility] - 09/03/2024 6:07 PM MEAT PROCESS WORKER Vent Rate: 60 bpm RR Interval: [address] Interval: 163 msec QRS Duration: 145 msec QT Interval: 429 msec QTC Interval: 429 msec P-R-T [place]: 70 - 2 - 1 degrees IMPRESSION: SINUS RHYTHM INDETERMINATE AXIS RIGHT BUNDLE BRANCH BLOCK [120+ ms QRS DURATION, UPRIGHT V1, 40+ ms S IN I/aVL/V4/V5/V6] POSSIBLE ANTERIOR MYOCARDIAL INFARCTION , PROBABLY OLD [30 ms Q WAVE IN V3/V4, OR R < 0.2 mV IN V4] ABNORMAL ECG Electronically Signed By: Abad Sanford MD Dandre Geronimo MD ECG ORDERABLES Final Result Performing Organization Address City/[facility]/ZIP Co de Phone Number [facility] [employer] [facility] * (ABNORMAL) Hemoglobin A1c (11/06/2021 8:28 PM CDT) Hgb A1C 6.8(H) 4.0 - 5.6 % ANGELIQUE HORTON Estimated Average Glucose 148 mg/dL ANGELIQUE HORTON Comment: The ADA recommends reporting an estimated Average Glucose (eAG) with all Hemoglobin A1c results using the equation derived from a study of 507 normal and diabetic adults. Minority populations were underrepresented and children were not included. (Diabetes Care 31:0779-7157, 2008). The eAG is not equivalent to a fasting glucose. Blood 11/06/2021 8:28 PM CDT 11/06/2021 8:45 PM CDT Bebeto Darden MD LAB BLOOD ORDERABLES Final Result ANGELIQUE [address] [facility] Department [place] [address] * (ABNORMAL) Lipid panel (07/29/2017 4:39 AM MEAT PROCESS WORKER) Cholesterol 182 40 - 199 mg/dL ANGELIQUE [facility] ([place]) Comment: Interpretive Data Desirable: Less than 200 mg/dl Borderline High: 200 - 239 mg/dl High: Greater than 239 mg/dl Current interpretive data was last revised on 2014. Triglycerides 151.0(H) <=150.0 mg/dL ANGELIQUE PINEDA ([place]) Comment: Interpretive Data Normal: Less than 150 mg/dl Borderline high: 150-199 mg/dl High: 200-499 mg/dl Very high: Greater than or equal to 500 mg/dl Current interpretive data was last revised on 2016. HDL 40 40 - 60 mg/dL ANGELIQUE PINEDA ([place]) Comment: Interpretive Data Low HDL Cholesterol: Less than 40 mg/dl Normal HDL Cholesterol: 40-60 mg/dl High HDL Cholesterol: Greater than 60 mg/dl Current interpretive data was last revised on 2014. LDL, calculated 112 mg/dL [place] PINEDA ([place]) Comment: Interpretive Data Optimal Less than 100 mg/dL Near optimal/Above optimal 100 - 129 mg/dL Borderline high 130 - 159 mg/dL High 160 - 189 mg/dL Very high Greater than or = 190 mg/dL LDL values are not valid when the total Triglyceride is greater than 300 mg/dL. Current interpretive data was last revised on 2014. Non-HDL Cholesterol 142 mg/dL ANGELIQUE PINEDA ([place]) Comment: Interpretive Data Optimal Less than 130 mg/dL Low Risk 130 - 159 mg/dL Moderate Risk 160 - 189 mg/dL High Risk Greater than or equal to 190 mg/dL Current interpretive data was last revised on 2014. Blood specimen (specimen) 07/29/2017 4:39 AM MEAT PROCESS WORKER 07/29/2017 5:11 AM MEAT PROCESS WORKER Narrative ANGELIQUE PINEDA ([place]) - 07/29/2017 6:22 AM MEAT PROCESS WORKER Jr Thomas MD LAB BLOOD ORDERABLES Final Resul t ANGELIQUE PINEDA ([place]) 1 [facility] Department [place] [address] from Last 3 Months or Most Recently Relevant to Health Maintenance Insurance [facility] MEDICARE O [facility] MEDICARE SOLUTIONS MEDICARE SOLUTIONS IDPA Advance Directives For more information, please contact: [phone] * Full Code (Latest Code Status on File) Date Activated Date Inactivated Comments 11/13/2021 11:09 PM 11/19/2021 8:47 PM * Full Code Date Activated Date Inactivated Comments 11/06/2021 8:16 PM 11/12/2021 8:24 PM * Full Code Date Activated Date Inactivated Comments 07/28/2017 7:26 AM 07/29/2017 5:48 PM Care Teams Optical Designer Relationship Specialty Start Date End Date No, Physician PCP - General 07/27/17
--- OUTSIDE RECORDS SUMMARY | 2024-09-04 13:18 | XMS_ITS | Encounter Summary ---
Author Organization [facility] Healthcare Address [address] [place] [address] Care Team Providers Care English As A Second Language Instructor Name Role Phone No, Physician Primary Care Provider [phone] Reason for Visit * Reason Comments Fall Encounter Details Date Type Department Care Team (Late st Contact Info) Description 09/03/2024 1:40 PM INTERNAL MEDICINE HOSPITALIST - 09/03/2024 6:32 PM INTERNAL MEDICINE HOSPITALIST Emergency [facility] Emergency Department [address] [place] [address] Kory Holm MD [address] [place] [address] [place] [id number] Fall, initial encounter (Primary Dx) Discharge Disposition: Discharge to home or self care Social History Tobacco Use Types Packs/Day Years Used Date Smoking Tobacco: Former Cigarettes Q uit: 1999 Smokeless Tobacco: Never Alcohol Use Standard Drinks/Week [...] often do you attend chur ch or anglican services? 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 Not on file Not on file Not on file documented as of this encounter Last Filed Vital Signs Vital Sign Reading Time Taken Comments Blood Pressure 134/81 09/03/2024 6:00 PM INTERNAL MEDICINE HOSPITALIST Pulse 65 09/03/2024 6:00 PM INTERNAL MEDICINE HOSPITALIST Temperature 36.1 C (97 F) 09/03/2024 8:39 AM INTERNAL MEDICINE HOSPITALIST Respiratory Rate 16 09/03/2024 8:39 AM INTERNAL MEDICINE HOSPITALIST Oxygen Saturation 98% 09/03/2024 6:00 PM INTERNAL MEDICINE HOSPITALIST Inhaled Oxygen Concentration - - Weight 76.7 kg (169 lb) 09/03/2024 8:39 AM INTERNAL MEDICINE HOSPITALIST Height - - Body Mass Index 29.01 04/07/2024 3:01 PM CDT documented in this encounter Discharge Instructions * Discharge Instructions* Consuelo Vizcarra MD - 09/03/2024 6:03 PM INTERNAL MEDICINE HOSPITALIST Hold chlorthalidone, make an appointment to follow up with her primary doctor to discuss blood pressure. [facility]L MEDICINE HOSPITALIST * Attachments The following attachments cannot be sent through Care Everywhere. * Fall Due To Dizziness, Weakness, Or Loss Of Balance (Canadian) documented in this encounter Medications at Time of Discharge aspirin 81 mg enteric coated tablet Take 81 mg by mouth daily HYDROcodone-acet aminophen (NORCO) 5-325 mg per tabletIndication s:Pain Take 1 tablet by mouth every 6 (six) hours as needed for pain 20 tablet 11/10/2021 Lumigan 0.01 % ophthalmic drops Administer 1 drop into both eyes nightly 11/05/2021 metFORMIN XR (GLUCOPHAGE XR) 500 mg 24 hr tablet Take 1,000 mg by mouth nightly 05/13/2021 tobramycin (TOBREX) 0.3 % ophthalmic solution Administer 1 drop into both eyes every 6 (six) hours For 5 days to affected eye(s) 11/05/2021 documented as of this encounter Discharge Disposition Disposition Code Departure Means Destination Comment s Discharge to home or self care documented in this encounter ED Notes * Consuelo Vizcarra MD - 09/03/2024 2:36 PM CST HPI Chief Complaint Patient presents with Fall 79-year-old with a history of hypertension, type 2 diabetes, CKD, dementia, accompanied by her granddaughter presenting for frequent falls over the past few days. Per her granddaughter, she has become weak and collapsed a few times, and has been acting more confused at night. Yesterday morning, shefell in the shower, and seemed weak and confused before being able to get up. She vomited at this time but otherwise has not been vomiting. She has loose stools at baseline. She denies recent changesin appetite. She denies history of seizures or seizure-like activity. Her granddaughter reports that POC blood sugar was 185 after the most recent episode. She returned from a trip to [place] approximately 1 week ago, and prior to the trip approximately 2 months ago she has been switched from lisinopril to chlorthalidone. She denies any other recent changes in medication, recent illness, and drugand alcohol use. Patient History: Patient Active Problem List Diagnosis Date Noted Cervical disc disorder with myelopathy of mid-cervical region 12/15/2021 Cervical radiculopathy due to intervertebral disc disorder 12/15/2021 Abdominal pain Glaucoma 11/13/2021 Benign essential HTN 11/06/2021 DELFINA (acute kidney injury) ([facility]) 11/06/2021 C2 cervical fracture (CMS/HCC) ([facility]) 11/06/2021 DVT prophylaxis 11/06/2021 Cervical compression fracture, initial encounter ([facility]) 11/06/2021 Paresthesia of left upper extremity 07/27/2017 Paresthesia of right upper extremity 07/27/2017 Type 2 diabetes mellitus ([facility]) 12/08/2013 Pain in thoracic spine 12/08/2013 Past Medical History: Diagnosis Date Allergic rhinitis Arthritis Diabetes mellitus ([facility]) Dry skin arms,dry and scabbed Glaucoma 11/13/2021 History of blood product transfusion years ago when they did appendectomy Hypertension Renal insufficiency Type 2 diabetes mellitus ([facility]) use metformin Wears contact lenses Past Surgical History: Procedure Laterality Date APPENDECTOMY 1979 Family History Problem Relation Age of Onset Other (dementia) Mother in her 80s Other (Cancer, unknown type) Father at 77 Cancer Daughter Social History Tobacco Use Smoking status: Former Current packs/day: 0.00 Types: Cigarettes Quit date: 1999 Years since quittin. Smokeless tobacco: Never Vaping Use Vaping status: passive smoke exposure - never smoker Substance and Sexual Activity Alcohol use: No Drug use: No Comment: Patient reports rare alcohol use and no illicit drug use. Sexual activity: Defer Social History Social History Narrative Patient utilizes no assistive devices for mobility Patient denies NANCY diagnosis Patient requires no home oxygen Patient is and lives with a son Review of Systems Review of Systems Constitutional: Negative for appetite change. HENT: Negative for ear pain, hearing loss, sore throat and tinnitus. Eyes: Negative for visual disturbance. Respiratory: Negative for cough and shortness of breath. Cardiovascular: Negative for chest pain. Gastrointestinal: Positive for diarrhea, nausea and vomiting. Negative for abdominal pain and constipation. Genitourinary: Negative for dysuria. Urinary incontinence Skin: Negative for rash. Neurological: Positive for weakness. Negative for dizziness, seizures and headaches. Physical Exam ED Triage Vitals Temp Pulse Resp BP SpO2 09/03/24 0839 09/03/24 0839 09/03/24 0839 09/03/24 0839 09/03/24 0839 36.1 ??C (97 ??F) 57 16 (!) 115/43 98 % Temp src Heart Rate Source Patient Position BP Location FiO2 (%) -- 09/03/24 1500 09/03/24 1500 -- -- Monitor Lying Height Height Method Weight Weight Method -- -- 09/03/24838 -- 76.7 kg (169 lb) Physical Exam Vitals and nursing note reviewed. Constitutional: General: She is not in acute distress. Appearance: She is not ill-appearing. HENT: Head: Normocephalic and atraumatic. Right Ear: Tympanic membrane and ear canal normal. Left Ear: Tympanic membrane and ear canal normal. Mouth/Throat: Mouth: Mucous membranes are moist. Pharynx: Oropharynx is clear. Eyes: Extraocular Movements: Extraocular movements intact. Pupils: Pupils are equal, round, and reactive to light. Cardiovascular: Rate and Rhythm: Normal rate and regular rhythm. Pulses: Normal pulses. Heart sounds: Murmur heard. Pulmonary: Effort: Pulmonary effort is normal. No respiratory distress. Breath sounds: Normal breath sounds. No wheezing, rhonchi or rales. Abdominal: Palpations: Abdomen is soft. Tenderness: There is no abdominal tenderness. There is no right CVA tenderness, left CVA tendernessor guarding. Musculoskeletal: Right lower leg: No edema. Left lower leg: No edema. Skin: General: Skin is warm and dry. Neurological: General: No focal deficit present. Mental Status: She is alert. Mental status is at baseline. Comments: Alert and oriented to self, place, and month, difficulty with year and situation, at baseline per granddaughter Psychiatric: Mood and Affect: Mood normal. Behavior: Behavior normal. MDM NIH Score Medical Decision Making Differentials include cardiac syncope, seizure, acute infection, electrolyte derangement, hypoglycemia, hypotension, vertigo. CT head and neck show no acute changes and patient denies injury or current pain, no sign of trauma. EKG and troponins unremarkable, seems less likely cardiac. Granddaughterdenies history of seizures or seizure-like activity. Patient and granddaughter deny recent illness,there is no fever, no leukocytosis. No findings suggestive of pneumonia on exam. Urinalysis suggestive of contamination, not suggestive of acute infection. Blood sugar during acute episode [id number] per granddaughter, 222 in the ED. No sign of hypoglycemia. Blood pressure on arrival 115/43, cre atinine slightly worsened from baseline to 1.6. No other signs of electrolyte derangement. Hypotension seems most likely at this point given recent change in medication from lisinopril to chlorthalidone. May also be slightly dehydrated given elevated creatinine. Plan to check orthostatic vitals. Attending Summary of Care ED Course as of 09/03/24 1805 Time: 09/03 1138 Comment: Age over the age of 65, CT head and neck appropriate By: Can Delgado NP Time: 09/03 1509 Value: BP: 144/81 Comment: (Reviewed) By: Consuelo Vizcarra MD Time: 09/03 1509 Value: BP: 138/56 Comment: Orthostatic vitals normal By: Consuelo Vizcarra MD Time: 09/03 1511 Comment: We will give 1 L normal saline for suspected dehydration By: Consuelo Vizcarra MD Time: 09/03 1543 Comment: [place]-Hallpike maneuver negative bilaterally By: Consuelo Vizcarra MD Time: 09/03 6318 Comment: Patient's granddaughter reports she did not take her blood pressure meds this morning, mayexplain normal-high readings. Still can not rule out hypotension at baseline on new chlorthalidone By: Consuelo Vizcarra MD Time: 09/03 1800 Comment: Repeat blood pressure 149/62, patient reports feeling much better. Plan to hold chlorthalidone, follow up closely with PCP for further management. By: Consuelo Vizcarra MD Fall, initial encounter Consuelo Vizcarra MD 09/03/241804 Cosigned by Kory Holm MD at 09/03/2024 8:21 PM INTERNAL MEDICINE HOSPITALIST [facility] MEDIC[facility] HOSPITALIST [facility] MEDICINE HOSPITALIST * Natacha Becerra, FADY - 09/03/2024 8:36 AM CST Pt arrives to ED via POV with granddaughter after a fall yesterday in the shower. Pt denies hittingher head, LOC, back or neck pain. Pt c/o dizziness this morning. Pt a&o x 3. Pt has hx of dementia. RNAL MEDICINE HOSPITALIST [facility] MEDICINE HOSPITALIST documented in this encounter Miscellaneous Notes * ED Re-evaluation Note - Kory Holm MD - 09/03/2024 6:32 PM CST ED Re-evaluation I personally saw and examined the patient and discussed the case with the resident. I have reviewedthe resident's note and agree with the content and plan as written. Kory Holm MD 09/03/242020 RNAL MEDICINE HOSPITALIST documented in this encounter Plan of Treatment Not on file documented as of this encounter Procedures Procedure Name Priority Date/Time Associated Diagnosis Comments TROPONIN T HIGH-SENSITIVITY 4-HR Timed 09/03/2024 3:23 PM INTERNAL MEDICINE HOSPITALIST URINALYSIS AND REFLEX TO MICROSCOPIC AND CULTURE STAT 09/03/2024 12:46 PM INTERNAL MEDICINE HOSPITALIST URINALYSIS, MICROSCOPIC ONLY STAT 09/03/2024 12:46 [address] CERVICAL SPINE WO CONTRAST ED 09/03/2024 12:24 [address]INE HOSPITALIST [address] HEAD WO CONTRAST ED 09/03/2024 1 2:24 PM INTERNAL MEDICINE HOSPITALIST TROPONIN T HIGH-SENSITIVITY SERIES (BASELINE, 2HR, 4HR, 6HR) STAT 09/03/2024 10:33 AM INTERNAL MEDICINE HOSPITALIST EGFR STAT 09/03/2024 10:33 AM INTERNAL MEDICINE HOSPITALIST DIFFERENTIAL AUTO STAT 09/03/2024 10: 33 AM INTERNAL MEDICINE HOSPITALIST CBC WITH AUTO DIFFERENTIAL STAT 09/03/2024 10:33 AM INTERNAL MEDICINE HOSPITALIST COMPREHENSIVE METABOLIC PANEL STAT 09/03/2024 10:33 AM INTERNAL MEDICINE HOSPITALIST ECG 12-LEAD STAT 09/03/2024 8:46 AM INTERNAL MEDICINE HOSPITALIST documented in this encounter Results * (ABNORMAL) Troponin T high-sensitivity 4-hour (09/03/2024 3:23 PM INTERNAL MEDICINE HOSPITALIST) Trop T hs 15(H) <=14 ng/L Comment: Interpretive Data For further hscTnT resources including the diagnostic algorithm and an aid in interpretation, copy and paste this link: https://nrl.testcatalog.org/show/hsTrop Current Interpretive Data last revised 2020. Trop T hs delta 1 ng/L [facility] ([place]) Trop T hs interp Insignificant [facility] ([place]) Blood 09/03/2024 3:23 PM INTERNAL MEDICINE HOSPITALIST 09/03/2024 3:27 PM INTERNAL MEDICINE HOSPITALIST Dandre Geronimo MD LAB BLOOD ORDERABLES Final R esult [facility] Department [place] [address] * (ABNORMAL) Urinalysis, microscopic only (09/03/2024 12:46 PM INTERNAL MEDICINE HOSPITALIST) WBC, ur 6-10(A) 0 - 5 /HPF RBC, ur 0-2 0 - 2 /HPF [facility] ([place]) Epithelial cells, squamous, ur 21-50(A) 0 - 5 /HPF [facility] ([place]) Bacteria, ur 4+(A) [facility] ([place]) Mucous, ur Present(A) [facility] ([place]) Hyaline casts, ur 11-20(A) 0 - 10 /LPF [facility] ([place]) Culture Reflex Comment Reflex conditions for urine culture (WBC >10) not met. [facility] ([place]) Urine 09/03/2024 12:4 6 PM INTERNAL MEDICINE HOSPITALIST 09/03/2024 12:49 PM INTERNAL MEDICINE HOSPITALIST Dandre Geronimo MD LAB URINE ORDERABLES Final R esult [facility] ([place]) [address] [facility] Department [place] [address] * (ABNORMAL) Urinalysis reflex to microscopic and culture Urine (09/03/2024 12:46 PM INTERNAL MEDICINE HOSPITALIST) Color, ur Yellow Yellow Clarity, ur Turbid(A) [...] tendency for uric acid stone formation. Source: [facility] Checkd.In Current Interpretive Data was last revised on 2017 Protein, ur ql 1+(A) Negative [facility] ([place]) Glucose, ur ql Negative Negative [facility] ([place]) Ketones, ur Negative Negative [facility] ([place]) Bilirubin, ur Negative Negative [facility] ([place]) Blood, ur Trace(A) Negative [facility] ([place]) Urobilinogen, ur <2.0 <2.0 mg/dL [facility] ([place]) Nitrite, ur Negative Negative [facility] ([place]) Leukocyte esterase, ur 1+(A) Negative [facility] ([place]) UA reflex comment Reflex to microscopic UA will be performed. [facility] ([place]) Urine 09/03/2024 12:4 6 PM INTERNAL MEDICINE HOSPITALIST 09/03/2024 12:49 PM INTERNAL MEDICINE HOSPITALIST Dandre Geronimo MD LAB MICROBIOLOGY - GENERAL O RDERABLES Final Result [facility] [place] [facility] Department [place] [address] * CT Cervical Spine WO Contrast (09/03/2024 12:24 PM INTERNAL MEDICINE HOSPITALIST) Anatomical Region Laterality Modality Spine N/A Computed Tomogra phy 09/03/2024 12:3 5 PM INTERNAL MEDICINE HOSPITALIST Narrative 09/03/2024 12:49 PM INTERNAL MEDICINE HOSPITALIST EXAM DESCRIPTION: CT HEAD WO CONTRAST; CT [...] Amauri Wilkinson M.D. MZ: SEAN Report ID: [id number] Reading Location: [id number] Procedure Note Amauri Wilkinson MD - 09/03/2024 [...] at least moderate spinal canal stenosis at C4-J8H7-T3 and C6-C7. There is multilevel facet osteoarthritis, [...] Amauri Wilkinson M.D. MZ: SEAN Report ID: [id number] Reading Location: [id number] Can Ruffin Bobdung [employer] IMG CT PROCEDURES Final Res ult * CT Head WO Contrast (09/03/2024 12:24 PM INTERNAL MEDICINE HOSPITALIST) Anatomical Region Laterality Modality Head and Neck N/A Computed Tomogra phy 09/03/2024 12:3 5 PM INTERNAL MEDICINE HOSPITALIST Narrative 09/03/2024 12:49 PM INTERNAL MEDICINE HOSPITALIST EXAM DESCRIPTION: CT HEAD WO CONTRAST; CT [...] Amauri Wilkinson M.D. MZ: SEAN Report ID: [id number] Reading Location: [id number] Procedure Note Amauri Wilkinson MD - 09/03/2024 [...] at least moderate spinal canal stenosis at C4-C8M1-C1 and C6-C7. There is multilevel facet osteoarthritis, [...] Amauri Wilkinson M.D. MZ: SEAN Report ID: [id number] Reading Location: [place] [address] Can Laly Thurm [employer] IMG CT PROCEDURES Final Res ult * (ABNORMAL) eGFR (09/03/2024 10:33 AM INTERNAL MEDICINE HOSPITALIST) eGFR 32(L) >=60 mL/min/1. 73 m2 Comment: [...] reviewed 2021. Blood 09/03/2024 10:3 3 AM INTERNAL MEDICINE HOSPITALIST 09/03/2024 10:36 AM INTERNAL MEDICINE HOSPITALIST us Dandre Geronimo MD LAB BLOOD ORDERABLES Final R esult [facility] ([place]) 1 [facility] Department [place] [address] * (ABNORMAL) Differential, auto (09/03/2024 10:33 AM INTERNAL MEDICINE HOSPITALIST) Neutrophil abs 3.7 1.5 - 6.5 K/cumm [...] on 2017. Blood 09/03/2024 10:3 3 AM INTERNAL MEDICINE HOSPITALIST 09/03/2024 10:36 AM INTERNAL MEDICINE HOSPITALIST us Dandre Geronimo MD LAB BLOOD ORDERABLES Final R esult [facility] ([place]) 1 [facility] Department [place] [address] * Troponin T high-sensitivity series (baseline, 2hr, 4hr, 6hr) (09/03/2024 10:33 AM INTERNAL MEDICINE HOSPITALIST) Trop T hs 14 <=14 ng/L Comment: Interpretive Data For further hscTnT resources including the diagnostic algorithm and an aid in interpretation, copy and paste this link: https://nrl.testcatalog.org/show/hsTrop Current Interpretive Data last revised 2020. Blood 09/03/2024 10:3 3 AM INTERNAL MEDICINE HOSPITALIST 09/03/2024 10:36 AM INTERNAL MEDICINE HOSPITALIST us Dandre Geronimo MD LAB BLOOD ORDERABLES Final R esult [facility] ([place]) 1 [facility] Department [place] [address] * (ABNORMAL) Comprehensive metabolic panel (09/03/2024 10:33 AM INTERNAL MEDICINE HOSPITALIST) Sodium 135 135 - 145 mmol/L Potassium, [...] [facility] ([place]) Blood 09/03/2024 10:3 3 AM INTERNAL MEDICINE HOSPITALIST 09/03/2024 10:36 AM INTERNAL MEDICINE HOSPITALIST us Dandre Geronimo MD LAB BLOOD ORDERABLES Final R esult [facility] ([place]) 1 [facility] Department [place] [address] * (ABNORMAL) CBC with auto differential (09/03/2024 10:33 AM INTERNAL MEDICINE HOSPITALIST) WBC 4.6 3.8 - 9.9 K/cumm Hgb [...] NRBC abs 0.00 0.00 - 0.01 K/cumm [facility] ([place]) Blood 09/03/2024 10:3 3 AM INTERNAL MEDICINE HOSPITALIST 09/03/2024 10:36 AM INTERNAL MEDICINE HOSPITALIST Dandre Geronimo MD LAB BLOOD ORDERABLES Final R esult [facility] ([place]) 1 [facility] Department [place] [address] * ECG 12 lead (09/03/2024 8:46 AM INTERNAL MEDICINE HOSPITALIST) 09/03/2024 8:46 AM INTERNAL MEDICINE HOSPITALIST Narrative [facility] - 09/03/2024 6:07 PM INTERNAL MEDICINE HOSPITALIST Vent Rate: 60 bpm RR Interval: 1000 msec [place] Interval: 163 msec QRS Duration: 145 msec QT Interval: 429 msec QTC Interval: 429 msec P-R-T [place]: 70 - 2 - 1 degrees IMPRESSION: [...] ECG ORDERABLES Final Result Performing Organization Address [facility]/State/ZIP Co de Phone Number [facility] [employer] [facility] documented in this encounter Visit Diagnoses Diagnosis Fall, initial encounter- Primary documented in this encounter Administered Medications Inactive Administered Medications - up to 3 most recent administrations Medication Order MAR Action Action Date Dose Rate Site sodium chloride 0.9% bolus 1,000 mL 1,000 mL, intravenous, at 1,000 mL/hr, Administer over 1 Hours, Once, On Tue09/03/24 at 1449, For 1 dose New Bag 09/03/2024 3:23 PM INTERNAL MEDICINE HOSPITALIST 1,000 mL 100 0 mL/hr documented in this encounter Active and Recently Administered Medications Times are shown in INTERNAL MEDICINE HOSPITALIST. Scheduled Medication Order 09/01/2024 09/02/2024 09/03/2024 sodium chloride 0.9% bolus 1,000 mL (COMPLETED) 1,000 mL, intravenous, at 1,000 mL/hr, Administer over 1 Hours, Once, On 09/03/25 at 1449, For 1 dose 1523 (New Bag - Prov ider: Dayanna Clark, RN)[id number] (Stopped - Provider: Dayanna Clark, FADY) documented in this encounter Orders Medications Ordered That Jovani ht Not Have Been Administered Count Last Ordered Date First Ordered Date sodium chloride 0.9% bolus 1,000 mL 1 09/03 documented in this encounter Care Teams English As A Second Language Instructor Relationship Specialty Start Date End Date No, Physician PCP - General 07/27/17 documented as of this encounter
--- OUTSIDE RECORDS SUMMARY | 2024-09-04 13:18 | XMS_ITS | Referral Summary ---
Author Organization [facility] Address [address] [place] [address] Care Team Providers Care Sales Contractor Name Role Phone No, Physician Primary Care Provider [phone] Encounters Date Type Department Care Team Description 09/03/2024 1:40 PM RETAIL EVENT AND SALES ASSISTANT - 09/03/2024 6:32 PM RETAIL EVENT AND SALES ASSISTANT Emergency [facility] Emergency Department [address] [place] [address] Kory Holm MD Fall, initial encounter (Primary Dx) Discharge Disposition: Discharge to home or self care from Last 3 Months Allergies No known active allergies Medications metFORMIN [...] (12/15/2021): Added automatically from request for surgery [id number] Cervical radiculopathy due to intervertebral dis c disorder 12/15/2021 Overview (12/15/2021): Added automatically from request for surgery [id number] Glaucoma 11/13/2021 Benign essential HTN 11/06/2021 DELFINA (acute kidney injury) 11/06/2021 C2 cervical fracture (CMS/HCC) 11/06/2021 DVT prophylaxis 11/06/2021 Cervical compression fracture, initial encounter 11/06/2021 Paresthesia of left upper extremity 07/27/2017 Paresthesia of right upper extremity 07/27/2017 Type 2 diabetes mellitus 12/08/2013 Overview (10/29/2016): DMII WO CMP UNCNTRLD Pain in thoracic spine 12/08/2013 Overview (10/29/2016): PAIN IN THORACIC SPINE Abdominal pain Immunizations Name Administration Dates Next Due Influenza, Quadrivalent, Hig h Dose, Preservative Free, Intrr 05/13/2021,06/02/2020 Influenza, Split 07/06/2013 Influenza, Trivalent, High D ose, Split, Preservative Free, Intramuscular 04/27/2019,04/24/2018,05/25/2017,04/08,05/05/2015 Pneumococcal Conjugate PCV 13 08/01/2018 Pneumococcal Polysaccharide PPV23 08/17/2019 Tdap 04/07/2024 Social History Tobacco Use Types Packs/Day Years [...] often do you attend chur ch or sikhism services? 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 [employer] Not on file Not on file Not on file Last Filed Vital Signs Vital Sign Reading Time Taken Comments Blood Pressure 134/81 09/03/2024 6:00 PM RETAIL EVENT AND SALES ASSISTANT Pulse 65 09/03/2024 6:00 PM RETAIL EVENT AND SALES ASSISTANT Temperature 36.1 C (97 F) 09/03/2024 8:39 AM RETAIL EVENT AND SALES ASSISTANT Respiratory Rate 16 09/03/2024 8:39 AM RETAIL EVENT AND SALES ASSISTANT Oxygen Saturation 98% 09/03/2024 6:00 PM RETAIL EVENT AND SALES ASSISTANT Inhaled Oxygen Concentration - - Weight 76.7 kg (169 lb) 09/03/2024 8:39 AM RETAIL EVENT AND SALES ASSISTANT Height 162.6 cm (5' 4 ) 04/07/2024 3:01 PM CDT Body Mass Index 29.01 04/07/2024 3:01 PM CDT Plan of Treatment Not on file Procedures Procedure Name Priority Date/Time Associated Diagnosis Comments TROPONIN T HIGH-SENSITIVITY 4-HR Timed 09/03/2024 3:23 PM RETAIL EVENT AND SALES ASSISTANT URINALYSIS, MICROSCOPIC ONLY STAT 09/03/2024 12:46 PM RETAIL EVENT AND SALES ASSISTANT URINALYSIS AND REFLEX TO MICROSCOPIC AND CULTURE STAT 09/03/2024 12:46 PM RETAIL EVENT AND SALES ASSISTANT CT CERVICAL SPINE WO CONTRAST ED 09/03/2024 12:24 PM RETAIL EVENT AND SALES ASSISTANT CT HEAD WO CONTRAST ED 09/03/2024 1 2:24 PM RETAIL EVENT AND SALES ASSISTANT EGFR STAT 09/03/2024 10:33 AM RETAIL EVENT AND SALES ASSISTANT DIFFERENTIAL AUTO STAT 09/03/2024 10: 33 AM RETAIL EVENT AND SALES ASSISTANT TROPONIN T HIGH-SENSITIVITY SERIES (BASELINE, 2HR, 4HR, 6HR) STAT 09/03/2024 10:33 AM RETAIL EVENT AND SALES ASSISTANT COMPREHENSIVE METABOLIC PANEL STAT 09/03/2024 10:33 AM RETAIL EVENT AND SALES ASSISTANT CBC WITH AUTO DIFFERENTIAL STAT 09/03/2024 10:33 AM RETAIL EVENT AND SALES ASSISTANT ECG 12-LEAD STAT 09/03/2024 8:46 AM RETAIL EVENT AND SALES ASSISTANT HEMOGLOBIN A1C Routine 11/06/2021 8:28 PM CDT LIPID PANEL Routine 07/29/2017 4:39 AM RETAIL EVENT AND SALES ASSISTANT from Last 3 Months or Most Recently Relevant to Health Maintenance Results * (ABNORMAL) Troponin T high-sensitivity 4-hour (09/03/2024 3:23 PM RETAIL EVENT AND SALES ASSISTANT) Trop T hs 15(H) <=14 ng/L Comment: Interpretive Data For further hscTnT resources including the diagnostic algorithm and an aid in interpretation, copy and paste this link: https://nrl.testcatalog.org/show/hsTrop Current Interpretive Data last revised 2020. Trop T hs delta 1 ng/L [facility] ([place]) Trop T hs interp Insignificant [facility] ([place]) Blood 09/03/2024 3:23 PM RETAIL EVENT AND SALES ASSISTANT 09/03/2024 3:27 PM RETAIL EVENT AND SALES ASSISTANT Dandre Geronimo MD LAB BLOOD ORDERABLES Final R esult [facility] ([place]) [address] [facility] Department [place] [address] * (ABNORMAL) Urinalysis reflex to microscopic and culture Urine (09/03/2024 12:46 PM RETAIL EVENT AND SALES ASSISTANT) Color, ur Yellow Yellow Clarity, ur Turbid(A) Clear [facility] ([place]) Specific gravity, ur 1.020 1.003 - 1.030 [facility] ([place]) pH, urine 5.5 [facility] ([place]) Comment: Interpretive Data U rine pH is affected by diet, medications, systemic acid-base disturbances, and renal tubular function. pH may affect urinary stone formation. For example, urine pH below 6.0 may help reduce the tendency for calcium phosphate stones and pH greater than 6.0 may reduce the tendency for uric acid stone formation. Source: [facility] Laboratories Current Interpretive Data was last revised on [...] Reflex to microscopic UA will be performed. [facility] ([place]) Urine 09/03/2024 12:4 6 PM RETAIL EVENT AND SALES ASSISTANT 09/03/2024 12:49 PM RETAIL EVENT AND SALES ASSISTANT Dandre Geronimo MD LAB MICROBIOLOGY - GENERAL O RDERABLES Final Result [facility] ([place]) [address] [facility] Department [place] [address] * (ABNORMAL) Urinalysis, microscopic only (09/03/2024 12:46 PM RETAIL EVENT AND SALES ASSISTANT) WBC, ur 6-10(A) 0 - 5 /HPF [...] [facility] ([place]) Urine 09/03/2024 12:4 6 PM RETAIL EVENT AND SALES ASSISTANT 09/03/2024 12:49 PM RETAIL EVENT AND SALES ASSISTANT Dandre Geronimo MD LAB URINE ORDERABLES Final R esult [facility] [place] [address] [facility] [place] [address] * CT Cervical Spine WO Contrast (09/03/2024 12:24 PM RETAIL EVENT AND SALES ASSISTANT) Anatomical Region Laterality Modality Spine N/A Computed Tomogra phy 09/03/2024 12:3 5 PM RETAIL EVENT AND SALES ASSISTANT Narrative 09/03/2024 12:49 PM RETAIL EVENT AND SALES ASSISTANT EXAM DESCRIPTION: CT HEAD WO CONTRAST; CT [...] Amauri Wilkinson M.D. MZ: SEAN Report ID: [id number] Reading Location: [id number] Procedure Note Amauri Wilkinson MD - 09/03/2024 [...] at least moderate spinal canal stenosis at C4-Z2Z8-V3 and C6-C7. There is multilevel facet osteoarthritis, [...] Amauri Wilkinson M.D. MZ: SEAN Report ID: [id number] Reading Location: [place] [address] [place] Can Ruffin Danny RESIDENTIAL SALES EXECUTIVE IMG CT PROCEDURES Final Res ult * CT Head WO Contrast (09/03/2024 12:24 PM RETAIL EVENT AND SALES ASSISTANT) Anatomical Region Laterality Modality Head and Neck N/A Computed Tomogra phy 09/03/2024 12:3 5 PM RETAIL EVENT AND SALES ASSISTANT Narrative 09/03/2024 12:49 PM RETAIL EVENT AND SALES ASSISTANT EXAM DESCRIPTION: CT HEAD WO CONTRAST; CT [...] Amauri Wilkinson M.D. MZ: SEAN Report ID: [id number] Reading Location: [id number] Procedure Note Amauri Wilkinson MD - 09/03/2024 [...] at least moderate spinal canal stenosis at C4-T6S6-P8 and C6-C7. There is multilevel facet osteoarthritis, [...] Amauri Wilkinson M.D. MZ: SEAN Report ID: [id number] Reading Location: [place] [address] Can Delgado NP IMG CT PROCEDURES Final Res ult * Troponin T high-sensitivity series (baseline, 2hr, 4hr, 6hr) (09/03/2024 10:33 AM RETAIL EVENT AND SALES ASSISTANT) Trop T hs 14 <=14 ng/L Comment: Interpretive Data For further hscTnT resources including the diagnostic algorithm and an aid in interpretation, copy and paste this link: https://nrl.testcatalog.org/show/hsTrop Current Interpretive Data last revised 2020. Blood 09/03/2024 10:3 3 AM RETAIL EVENT AND SALES ASSISTANT 09/03/2024 10:36 AM RETAIL EVENT AND SALES ASSISTANT us Dandre Geronimo MD LAB BLOOD ORDERABLES Final R esult [facility] ([place]) [address] [facility] Department [place] [address] * (ABNORMAL) eGFR (09/03/2024 10:33 AM RETAIL EVENT AND SALES ASSISTANT) Pathologist [facility] eGFR 32(L) >=60 mL/min/1. 73 m2 Comment: [...] reviewed 2021. Blood 09/03/2024 10:3 3 AM RETAIL EVENT AND SALES ASSISTANT 09/03/2024 10:36 AM RETAIL EVENT AND SALES ASSISTANT us Dandre Geronimo MD LAB BLOOD ORDERABLES Final R esult [facility] ([place]) [address] [facility] [place] [address] * (ABNORMAL) Differential, auto (09/03/2024 10:33 AM RETAIL EVENT AND SALES ASSISTANT) Neutrophil abs 3.7 1.5 - 6.5 K/cumm Imm gran abs 0.0 0.0 - 0.1 K/cumm [facility] ([place]) Lymphocyte abs 0.4(L) 0.8 - 3.3 K/cumm [facility] ([place]) Monocyte abs 0.6 0.2 - 0.8 K/cumm [facility] ([place]) Eosinophil abs 0.0 0.0 - 0.5 K/cumm [facility] ([place]) Basophil abs 0.0 0.0 - 0.1 K/cumm [facility] ([place]) Neutrophil pct 79.1 % [facility] ([place]) Comment: Consistent with previous result Interpretive Data [...] on 2017. Blood 09/03/2024 10:3 3 AM RETAIL EVENT AND SALES ASSISTANT 09/03/2024 10:36 AM RETAIL EVENT AND SALES ASSISTANT Dandre Geronimo MD LAB BLOOD ORDERABLES Final R esult [facility] ([place]) 1 [facility] Department [place] [address] * (ABNORMAL) CBC with auto differential (09/03/2024 10:33 AM RETAIL EVENT AND SALES ASSISTANT) WBC 4.6 3.8 - 9.9 K/cumm Hgb [...] [facility] ([place]) Blood 09/03/2024 10:3 3 AM RETAIL EVENT AND SALES ASSISTANT 09/03/2024 10:36 AM RETAIL EVENT AND SALES ASSISTANT Dandre Geronimo MD LAB BLOOD ORDERABLES Final R esult [facility] ([place]) [address] [facility] Department [place] [address] * (ABNORMAL) Comprehensive metabolic panel (09/03/2024 10:33 AM RETAIL EVENT AND SALES ASSISTANT) Sodium 135 135 - 145 mmol/L Potassium, [...] classification and Diagnosis of Diabetes Diabetes Care 202; 46: S19-S40. Current interpretive data was last [...] [facility] ([place]) Blood 09/03/2024 10:3 3 AM RETAIL EVENT AND SALES ASSISTANT 09/03/2024 10:36 AM RETAIL EVENT AND SALES ASSISTANT Result [facility] Dandre Geronimo MD LAB BLOOD ORDERABLES Final R esult [facility] ([place]) [address] [facility] Department [place] [address] * ECG 12 lead (09/03/2024 8:46 AM RETAIL EVENT AND SALES ASSISTANT) 09/03/2024 8:46 AM RETAIL EVENT AND SALES ASSISTANT Narrative [facility] - 09/03/2024 6:07 PM RETAIL EVENT AND SALES ASSISTANT Vent Rate: 60 bpm RR Interval: 1000 msec SC Interval: 163 msec QRS Duration: 145 msec QT Interval: 429 msec QTC Interval: 429 msec P-R-T Scobey: 70 - 2 - 1 degrees IMPRESSION: SINUS RHYTHM INDETERMINATE AXIS RIGHT BUNDLE BRANCH BLOCK [120+ ms QRS DURATION, UPRIGHT V1, 40+ ms S IN I/aVL/V4/V5/V6] POSSIBLE ANTERIOR MYOCARDIAL INFARCTION , PROBABLY OLD [30 ms Q WAVE IN V3/V4, OR R < 0.2 mV IN V4] ABNORMAL ECG Electronically Signed By: Abad Sanford MD Result [facility] Dandre Geronimo MD ECG ORDERABLES Final Result [facility] [employer] [facility] * (ABNORMAL) Hemoglobin A1c (11/06/2021 8:28 PM CDT) Hgb A1C 6.8(H) 4.0 - 5.6 % [facility] Estimated Average Glucose 148 mg/dL [facility] Comment: The ADA recommends reporting an estimated Average Glucose (eAG) with all Hemoglobin A1c results using the equation derived from a study of 507 normal and diabetic adults. Minority populations were underrepresented and children were not included. (Diabetes Care 31:9479-7329, 2008). The eAG is not equivalent to a fasting glucose. Blood 11/06/2021 8:28 PM CDT 11/06/2021 8:45 PM CDT Result [facility] Bebeto Darden MD LAB BLOOD ORDERABLES Final Result [facility] [address] [facility] Department [place] [address] * (ABNORMAL) Lipid panel (07/29/2017 4:39 AM RETAIL EVENT AND SALES ASSISTANT) Cholesterol 182 40 - 199 mg/dL [facility] ([place]) Comment: Interpretive Data Desirable: Less than [...] 2014. Blood specimen (specimen) 07/29/2017 4:39 AM RETAIL EVENT AND SALES ASSISTANT 07/29/2017 5:11 AM RETAIL EVENT AND SALES ASSISTANT Narrative [facility] ([place]) - 07/29/2017 6:22 AM RETAIL EVENT AND SALES ASSISTANT Jr Thomas MD LAB BLOOD ORDERABLES Final Resul t [facility] [place]) [address] [facility] [place] [address] from Last 3 Months or Most Recently Relevant to Health Maintenance Insurance [facility] [place] [address] [facility] MED[employer] [place] [address] [place] [address] Advance Directives For more information, please contact: [phone] * Full Code (Latest Code Status on File) Date Activated Date Inactivated Comments 11/13/2021 11:09 PM 11/19/2021 8:47 PM * Full Code Date Activated Date Inactivated Comments 11/06/2021 8:16 PM 11/12/2021 8:24 PM * Full Code Date Activated Date Inactivated Comments 07/28/2017 7:26 AM 07/29/2017 5:48 PM Care Teams Sales Contractor Relationship Specialty Start Date End Date No, Physician PCP - General 07/27/17
--- OUTSIDE RECORDS SUMMARY | 2024-09-04 13:18 | XMS_ITS | Continuity of Care Document ---
Author Organization [facility] Address [address] [place] [address] Phone Care Team Providers Care Tile Grinder Name Role Phone Jude Fernandez MD Unavailable Unavailable Allergies, Adverse Reactions, Alerts Substance Reaction Status Criticality No Known Allergies Active No Inform ation Medications Medication Instructions Dosage Effective Dates (start - stop) Status Comments TRAMADOL HCL (unknown strength) Not Available - Active ONGLYZA (unknown strength) Not Available - Active LIPITOR (unknown strength) Not Available - Active LISINOPRIL (unknown strength) Not Available - Active Procedures Procedure Date OFFICE/OUTPATIENT VISIT EST POSTOP FOLLOW-UP VISIT OFFICE/OUTPATIENT VISIT EST OFFICE CONSULTATION Advance Directives Directive Yes / No Effective Date File Name No Information Encounters Encounter Description Practice Location Reason(s) For Visit Diagnoses Date Provider Providers Copied on Encounter OFFICE/OUTPAT IENT VISIT EST [facility], [address], [address], tel:[phone] [facility] [place] Fracture of metatarsal bone(s), closed 0- 5 Rebecca Roque. [address] [place], [place], [id number] . tel: [phone] [facility], [address], [place], [address], [place] tel:[phone] [facility] [place] Fracture of metatarsal bone(s), closed 0-201 5 Bagwe Jude. [address] , [place], [place], [id number] . tel: [phone] OFFICE/OUTPAT IENT VISIT EST [facility], [address], [place], [address], [place] tel:[phone] [facility] [place] Fracture of metatarsal bone(s), closed Oct- 5 Bagmarcio Roque. [address], [place], [place], [id number] . tel: [phone] OFFICE CONSULTATION [facility], [address], [place], [address], [place] tel:[phone] [facility] [place] OverweightFractu re of metatarsal bone(s), closedMorton's neuroma Oct- 5 Rebecca Roque. [address], [place], [place], [id number] . tel: [phone] Referring Provider: Emily Lantigua [facility] [address], [place], [address]. tel:[phone] Family History Family Member Type Diagnosis Age At Onset Father Problem (finding) Father Problem (finding) Cancer, unknown (Cause Of ) Payers Payer name Insurance type Covered alliance party ID Authoriza tion(s) No Information Social History Type Description Quantity Date Captured Comments Alcohol Use Details No Caffeine Use Details Unknown Tobacco Use Status Smoking Status No Information Sex Female Chief Complaint And Reason For Visit No Information Reason For Referral Reason For Referral No Information Plan Of Treatment Date Type Action Status Goal Dietary management education , guidance, and counseling completed Referral Ordered: RADEX FOOT COMPL MINIMUM 3 VIEWS RT ordered History Of Present Illness Encounter Date Complaint History Of Prese nt Illness No Information Functional Status Date Functional Assessmen t No Information Instructions Date Instruction Additional Infor mation Report increased monserrat n, swelling, numbness or discoloration. Related to Fracture of metatarsal bone(s), closed Report increased monserrat n, swelling, numbness or discoloration. Related to Fracture of metatarsal bone(s), closed Report increased monserrat n, swelling, numbness or discoloration. Related to Fracture of metatarsal bone(s), closed Take medication as directed. 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
--- OUTSIDE RECORDS SUMMARY | 2024-09-04 13:18 | XMS_ITS | Clinical Summary ---
Author Organization [facility] Address [address] [place] [address] Phone Care Team Providers Care Wringer Machine Operator Name Role Phone Sanchez Tavares Primary Care Provider [phone] Social History Tobacco Use Types Packs/Day Years Used Date Smoking Tobacco: Never Assessed Comments Unknown Sex and Gender Information Value Date Recorded Sex Assigned at Not on file Legal Sex Female 9:34 PM CDT Gender Identity Not on file Sexual Orientation Not on file Plan of Treatment Health Maintenance Due Date Last Done Comments DEXA Bone Density 1945 Hepatitis C Virus (HCV) Screening 1945 TdaP Immunization 1945 Zoster Immunization (1 of 2) 01/02/1994 Respiratory Syncytial Virus (RSV) Immunization (Adult) (1 - 1-dose 75+ series) 01/02/2019 Influenza Immunization (#1) 03/25/202404/25, 06/02/2020, 04/27/2019, Additional history exists SARS-COV-2 Immunization ( season) 2024 03/24/2022, 08/03/2021, 12/20/2020, Additional history exists Pneumococcal Immunization (50+ years) Completed 08/17/2019, 08/01/2018 Hepatitis B Immunization Aged Out No longer eligible based on patient's age to complete this topic Meningococcal Immunization (ACWY) Aged Out No longer eligible based on patient's age to complete this topic Rotavirus Immunization Aged Out No lo nger eligible based on patient's age to complete this topic Insurance MEDICARE C [employer] Care Teams Wringer Machine Operator Relationship Specialty Start Date End Date Sanchez Tavares, PAC [address] [place] [address] PCP - General Physician Agronomy Research Manager 02/24/22
== END 2024-09-04 12:18 | disposition home or self-care (01) ==
LOC: ANHBWCIMG 12:18
PROVIDERS: PCP Nurse Practitioner Adult Health; Visit Provider Nurse Practitioner Adult Health
DX: M79.602 Pain in left arm (principal); W19.XXXA Unspecified fall, initial encounter
CPT/HCPCS: 73060

== ENCOUNTER 2024-09-05 11:21 | Outpatient (CLI) | payer MEDICARE, MEDICAID, SELFPAY ==
--- OUTSIDE RECORDS SUMMARY | 2024-09-05 12:09 | XMS_ITS | Encounter Summary ---
Author Organization [facility] Healthcare Address [address] [place] [address] Care Team Providers Care Agency Cashier Name Role Phone No, Physician Primary Care Provider [phone] Reason for Visit * Reason Comments Fall Encounter Details Date Type Department Care Team (Late st Contact Info) Description 09/03/2024 1:40 PM PATENT PROSECUTION ATTORNEY - 09/03/2024 6:32 PM PATENT PROSECUTION ATTORNEY Emergency [facility] Emergency Department [address] [place] [address] Kory Holm MD [address] [place] [address] [place] [id number] Fall, initial encounter (Primary Dx) Discharge Disposition: [...] often do you attend chur ch or buddhist services? 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 [employer] Not on file Not on file Not on file documented as of this encounter Last Filed Vital Signs Vital Sign Reading Time Taken Comments Blood Pressure 134/81 09/03/2024 6:00 PM PATENT PROSECUTION ATTORNEY Pulse 65 09/03/2024 6:00 PM PATENT PROSECUTION ATTORNEY Temperature 36.1 C (97 F) 09/03/2024 8:39 AM PATENT PROSECUTION ATTORNEY Respiratory Rate 16 09/03/2024 8:39 AM PATENT PROSECUTION ATTORNEY Oxygen Saturation 98% 09/03/2024 6:00 PM PATENT PROSECUTION ATTORNEY Inhaled Oxygen Concentration - - Weight 76.7 kg (169 lb) 09/03/2024 8:39 AM PATENT PROSECUTION ATTORNEY Height - - Body Mass Index 29.01 04/07/2024 3:01 PM CDT documented in this encounter Discharge Instructions * Discharge Instructions* Consuelo Vizcarra MD - 09/03/2024 6:03 PM PATENT PROSECUTION ATTORNEY Hold chlorthalidone, make an appointment to follow up with her primary doctor to discuss blood pressure. NT PROSECUTION ATTORNEY * Attachments The following attachments cannot be sent through Care Everywhere. * Fall Due To Dizziness, Weakness, Or Loss Of Balance (Ghanaian) documented in this encounter Medications at Time [...] episode. She returned from a trip to [place] approximately 1 week ago, and prior to [...] essential HTN 11/06/2021 DELFINA (acute kidney injury) ([facility]) 11/06/2021 C2 cervical fracture (CMS/HCC) ([facility]) 11/06/2021 DVT prophylaxis 11/06/2021 Cervical compression fracture, initial encounter ([facility]) 11/06/2021 Paresthesia of left upper extremity 07/27/2017 Paresthesia of right upper extremity 07/27/2017 Type 2 diabetes mellitus ([facility]) 12/08/2013 Pain in thoracic spine 12/08/2013 Past Medical History: Diagnosis Date Allergic rhinitis Arthritis Diabetes mellitus ([facility]) Dry skin arms,dry and scabbed Glaucoma 11/13/2021 History of blood product transfusion years ago when they did appendectomy Hypertension Renal insufficiency Type 2 diabetes mellitus ([facility]) use metformin Wears contact lenses Past Surgical [...] acute infection. Blood sugar during acute episode [id number] per granddaughter, 222 in the ED. No [...] 1509 Value: BP: 144/81 Comment: (Reviewed) By: Cnosuelo Vizcarra MD Time: 09/03 1509 Value: BP: 138/56 Comment: Orthostatic vitals normal By: Consuelo Vizcarra MD Time: 09/03 1511 Comment: We will give 1 L normal saline for suspected dehydration By: Consuelo Vizcarra MD Time: 09/03 1543 Comment: Winfield-Hallpike maneuver negative bilaterally By: Consuelo Vizcarra MD Time: 09/03 6768 Comment: Patient's granddaughter reports she did not [...] Kory Holm MD at 09/03/2024 8:21 PM PATENT PROSECUTION ATTORNEY NT PROSECUTION ATTORNEY NT PROSECUTION ATTORNEY * Natacha Becerra, FADY - 09/03/2024 8:36 AM CST Pt arrives to ED via POV with granddaughter after a fall yesterday in the shower. Pt denies hittingher head, LOC, back or neck pain. Pt c/o dizziness this morning. Pt a&o x 3. Pt has hx of dementia. NT PROSECUTION ATTORNEY NT PROSECUTION ATTORNEY documented in this encounter Miscellaneous Notes * ED Re-evaluation Note - Kory Holm MD - 09/03/2024 6:32 PM CST ED Re-evaluation I personally saw and examined the patient and discussed the case with the resident. I have reviewedthe resident's note and agree with the content and plan as written. Kory Holm MD 09/03/242020 NT PROSECUTION ATTORNEY documented in this encounter Plan of Treatment Not on file documented as of this encounter Procedures Procedure Name Priority Date/Time Associated Diagnosis Comments TROPONIN T HIGH-SENSITIVITY 4-HR Timed 09/03/2024 3:23 PM PATENT PROSECUTION ATTORNEY URINALYSIS AND REFLEX TO MICROSCOPIC AND CULTURE STAT 09/03/2024 12:46 PM PATENT PROSECUTION ATTORNEY URINALYSIS, MICROSCOPIC ONLY STAT 09/03/2024 12:46 PM PATENT PROSECUTION ATTORNEY CT CERVICAL SPINE WO CONTRAST ED 09/03/2024 12:24 PM PATENT PROSECUTION ATTORNEY CT HEAD WO CONTRAST ED 09/03/2024 1 2:24 PM PATENT PROSECUTION ATTORNEY TROPONIN T HIGH-SENSITIVITY SERIES (BASELINE, 2HR, 4HR, 6HR) STAT 09/03/2024 10:33 AM PATENT PROSECUTION ATTORNEY EGFR STAT 09/03/2024 10:33 AM PATENT PROSECUTION ATTORNEY DIFFERENTIAL AUTO STAT 09/03/2024 10: 33 AM PATENT PROSECUTION ATTORNEY CBC WITH AUTO DIFFERENTIAL STAT 09/03/2024 10:33 AM PATENT PROSECUTION ATTORNEY COMPREHENSIVE METABOLIC PANEL STAT 09/03/2024 10:33 AM PATENT PROSECUTION ATTORNEY ECG 12-LEAD STAT 09/03/2024 8:46 AM PATENT PROSECUTION ATTORNEY documented in this encounter Results * (ABNORMAL) Troponin T high-sensitivity 4-hour (09/03/2024 3:23 PM PATENT PROSECUTION ATTORNEY) Trop T hs 15(H) <=14 ng/L Comment: Interpretive Data For further hscTnT resources including the diagnostic algorithm and an aid in interpretation, copy and paste this link: https://nrl.testcatalog.org/show/hsTrop Current Interpretive Data last revised 2020. Trop T hs delta 1 ng/L [facility] ([facility]) Trop T hs interp Insignificant [facility] ([place]) Blood 09/03/2024 3:23 PM PATENT PROSECUTION ATTORNEY 09/03/2024 3:27 PM PATENT PROSECUTION ATTORNEY Dandre Geronimo MD LAB BLOOD ORDERABLES Final R esult [facility] ([place]) 1 [facility] [place] [address] * (ABNORMAL) Urinalysis, microscopic only (09/03/2024 12:46 PM PATENT PROSECUTION ATTORNEY) WBC, ur 6-10(A) 0 - 5 /HPF [...] [facility] ([facility]) Urine 09/03/2024 12:4 6 PM PATENT PROSECUTION ATTORNEY 09/03/2024 12:49 PM PATENT PROSECUTION ATTORNEY Dandre Geronimo MD LAB URINE ORDERABLES Final R esult [facility] ([place]) 1 [facility] Department [place] [address] * (ABNORMAL) Urinalysis reflex to microscopic and culture Urine (09/03/2024 12:46 PM PATENT PROSECUTION ATTORNEY) Color, ur Yellow Yellow Clarity, ur Turbid(A) [...] tendency for uric acid stone formation. Source: [facility] [employer] Current Interpretive Data was last revised on [...] [facility]) Urine 09/03/2024 12:4 6 PM PATENT PROSECUTION ATTORNEY 09/03/2024 12:49 PM PATENT PROSECUTION ATTORNEY Dandre Geronimo MD LAB MICROBIOLOGY - GENERAL O RDERABLES Final Result [facility] 1 [facility] Department [place] [address] * CT Cervical Spine WO Contrast (09/03/2024 12:24 PM PATENT PROSECUTION ATTORNEY) Anatomical Region Laterality Modality Spine N/A Computed Tomogra phy 09/03/2024 12:3 5 PM PATENT PROSECUTION ATTORNEY Narrative 09/03/2024 12:49 PM PATENT PROSECUTION ATTORNEY EXAM DESCRIPTION: CT HEAD WO CONTRAST; CT [...] Amauri Wilkinson M.D. MZ: SEAN Report ID: [id number] Reading Location: [id number] Procedure Note Amauri Wilkinson MD - 09/03/2024 [...] at least moderate spinal canal stenosis at C4-Q7T8-O7 and C6-C7. There is multilevel facet osteoarthritis, [...] Amauri Wilkinson M.D. MZ: SEAN Report ID: [id number] Reading Location: [id number] Can Ruffin Bobdung WOODWIND INSTRUMENT REPAIRER IMG CT PROCEDURES Final Res ult * CT Head WO Contrast (09/03/2024 12:24 PM PATENT PROSECUTION ATTORNEY) Anatomical Region Laterality Modality Head and Neck N/A Computed Tomogra phy 09/03/2024 12:3 5 PM PATENT PROSECUTION ATTORNEY Narrative 09/03/2024 12:49 PM PATENT PROSECUTION ATTORNEY EXAM DESCRIPTION: CT HEAD WO CONTRAST; CT [...] Amauri Wilkinson M.D. MZ: SEAN Report ID: [id number] Reading Location: [id number] Procedure Note Amauri Wilkinson MD - 09/03/2024 [...] at least moderate spinal canal stenosis at C4-P4D9-Z8 and C6-C7. There is multilevel facet osteoarthritis, [...] Amauri Wilkinson M.D. MZ: SEAN Report ID: [id number] Reading Location: [place] [address] Can Laly Thurm WOODWIND INSTRUMENT REPAIRER IMG CT PROCEDURES Final Res ult * (ABNORMAL) eGFR (09/03/2024 10:33 AM PATENT PROSECUTION ATTORNEY) eGFR 32(L) >=60 mL/min/1. 73 m2 Comment: [...] reviewed 2021. Blood 09/03/2024 10:3 3 AM PATENT PROSECUTION ATTORNEY 09/03/2024 10:36 AM PATENT PROSECUTION ATTORNEY us Dandre Geronimo MD LAB BLOOD ORDERABLES Final R esult [facility] ([place]) 1 [facility] Department [place] [address] * (ABNORMAL) Differential, auto (09/03/2024 10:33 AM PATENT PROSECUTION ATTORNEY) Neutrophil abs 3.7 1.5 - 6.5 K/cumm [...] on 2017. Blood 09/03/2024 10:3 3 AM PATENT PROSECUTION ATTORNEY 09/03/2024 10:36 AM PATENT PROSECUTION ATTORNEY us Dandre Geronimo MD LAB BLOOD ORDERABLES Final R esult [facility] ([place]) 1 [facility] Department [place] [address] * Troponin T high-sensitivity series (baseline, 2hr, 4hr, 6hr) (09/03/2024 10:33 AM PATENT PROSECUTION ATTORNEY) Trop T hs 14 <=14 ng/L Comment: Interpretive Data For further hscTnT resources including the diagnostic algorithm and an aid in interpretation, copy and paste this link: https://nrl.testcatalog.org/show/hsTrop Current Interpretive Data last revised 2020. Blood 09/03/2024 10:3 3 AM PATENT PROSECUTION ATTORNEY 09/03/2024 10:36 AM PATENT PROSECUTION ATTORNEY us Dandre Geronimo MD LAB BLOOD ORDERABLES Final R esult [facility] ([place]) 1 [facility] Department [place] [address] * (ABNORMAL) Comprehensive metabolic panel (09/03/2024 10:33 AM PATENT PROSECUTION ATTORNEY) Sodium 135 135 - 145 mmol/L Potassium, [...] [facility] ([facility]) Blood 09/03/2024 10:3 3 AM PATENT PROSECUTION ATTORNEY 09/03/2024 10:36 AM PATENT PROSECUTION ATTORNEY us Dandre Geronimo MD LAB BLOOD ORDERABLES Final R esult [facility] ([place]) 1 [facility] Department [place] [address] * (ABNORMAL) CBC with auto differential (09/03/2024 10:33 AM PATENT PROSECUTION ATTORNEY) WBC 4.6 3.8 - 9.9 K/cumm Hgb [...] [facility] ([facility]) Blood 09/03/2024 10:3 3 AM PATENT PROSECUTION ATTORNEY 09/03/2024 10:36 AM PATENT PROSECUTION ATTORNEY Dandre Geronimo MD LAB BLOOD ORDERABLES Final R esult [facility] ([place]) 1 [facility] Department [place] [address] * ECG 12 lead (09/03/2024 8:46 AM PATENT PROSECUTION ATTORNEY) 09/03/2024 8:46 AM PATENT PROSECUTION ATTORNEY Narrative [facility] - 09/03/2024 6:07 PM PATENT PROSECUTION ATTORNEY Vent Rate: 60 bpm RR Interval: [address] Interval: 163 msec QRS Duration: 145 msec QT Interval: 429 msec QTC Interval: 429 msec P-R-T [facility]: 70 - 2 - 1 degrees IMPRESSION: [...] ECG ORDERABLES Final Result Performing Organization Address [facility]/State/ZIP Co de Phone Number [facility] [employer] [facility] documented in this encounter Visit Diagnoses [...] 1 dose New Bag 09/03/2024 3:23 PM PATENT PROSECUTION ATTORNEY 1,000 mL 100 0 mL/hr documented in this encounter Active and Recently Administered Medications Times are shown in PATENT PROSECUTION ATTORNEY. Scheduled Medication Order 09/01/2024 09/02/2024 09/03/2024 sodium [...] 09/03 documented in this encounter Care Teams Agency Cashier Relationship Specialty Start Date End Date No, Physician PCP - General 07/27/17 documented as of this encounter
--- OUTSIDE RECORDS SUMMARY | 2024-09-05 12:09 | XMS_ITS | Continuity of Care Document ---
Author Organization [facility] Address [address] [place] [address] Phone Care Team Providers Care Ship Construction Teacher Name Role Phone Jude Fernandez MD Unavailable [...] OFFICE/OUTPAT IENT VISIT EST [facility], [address], [address], tel:[phone] [facility] [place] Fracture of metatarsal bone(s), closed 0- 5 Rebecca Roque. [address] [place], [place], [id number] . tel: [phone] [facility], [address], [place], [address], [place] tel:[phone] [facility] [place] Fracture of metatarsal bone(s), closed 0-201 5 Bagwe Jude. [address] , [place], [place], [id number] . tel: [phone] OFFICE/OUTPAT IENT VISIT EST [facility], [address], [place], [address], [place] tel:[phone] [facility] [place] Fracture of metatarsal bone(s), closed Oct- 5 Bagmarcio Roque. [address], [place], [place], [id number] . tel: [phone] OFFICE CONSULTATION [facility], [address], [place], [address], [place] tel:[phone] [facility] [place] OverweightFractu re of metatarsal bone(s), closedMorton's neuroma Oct- 5 Rebecca Roque. [address], [place], [place], [id number] . tel: [phone] Referring Provider: Emily [facility] [address], [place], [address]. tel:[phone] Family History Family Member Type Diagnosis Age At Onset Father Problem (finding) Father Problem (finding) Cancer, unknown (Cause Of ) Payers Payer name Insurance type Covered republican ID Authoriza tion(s) No Information Social History [...]
--- OUTSIDE RECORDS SUMMARY | 2024-09-05 12:09 | XMS_ITS | Continuity of Care Document ---
Author Organization [facility] Address [address] [place] [address] [address] [place] [address] Phone Care Team Providers Care Tests Superintendent Name Role Phone Kaylen Dominguez Unavailable Unavailable Procedures Procedure Date Eye Exam, New Patient Advance Directives Directive Yes / No Effective Date File Name No Information Encounters Encounter Description Practice Location Reason(s) For Visit Diagnoses Date Provider Providers Copied on Encounter [facility], [address] [place] [address] [address], [place], [place], [id number], [place] tel:[phone] [facility] No Information [address] Angelica Abdullahi. [address] , [address], [place], [address], [place]. tel:[phone] Family History Family Member Type Diagnosis Age At Onset No Information Payers Payer name Insurance type Covered constitution party ID Authoriza tielizabeth(s) [facility] Commercial CI [id number] Social History Type Description Quantity Date Captured [...]
--- OUTSIDE RECORDS SUMMARY | 2024-09-05 12:09 | XMS_ITS | Referral Summary ---
Author Organization [facility] Address [address] [place] [address] Care Team Providers Care Vice President Of Manufacturing Name Role Phone No, Physician Primary Care Provider [phone] Encounters Date Type Department Care Team Description 09/03/2024 1:40 PM ELECTRIC SCOOP OPERATOR - 09/03/2024 6:32 PM ELECTRIC SCOOP OPERATOR Emergency [facility] Emergency Department [address] [place] [address] Kory Holm MD Fall, initial encounter (Primary [...] (12/15/2021): Added automatically from request for surgery [id number] Cervical radiculopathy due to intervertebral dis c disorder 12/15/2021 Overview (12/15/2021): Added automatically from request for surgery [id number] Glaucoma 11/13/2021 Benign essential HTN 11/06/2021 DELFINA [...] often do you attend chur ch or baptism services? 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 Not on file Not on file Last Filed Vital Signs Vital Sign Reading Time Taken Comments Blood Pressure 134/81 09/03/2024 6:00 PM ELECTRIC SCOOP OPERATOR Pulse 65 09/03/2024 6:00 PM ELECTRIC SCOOP OPERATOR Temperature 36.1 C (97 F) 09/03/2024 8:39 AM ELECTRIC SCOOP OPERATOR Respiratory Rate 16 09/03/2024 8:39 AM ELECTRIC SCOOP OPERATOR Oxygen Saturation 98% 09/03/2024 6:00 PM ELECTRIC SCOOP OPERATOR Inhaled Oxygen Concentration - - Weight 76.7 kg (169 lb) 09/03/2024 8:39 AM ELECTRIC SCOOP OPERATOR Height 162.6 cm (5' 4 ) 04/07/2024 3:01 PM CDT Body Mass Index 29.01 04/07/2024 3:01 PM CDT Plan of Treatment Not on file Procedures Procedure Name Priority Date/Time Associated Diagnosis Comments TROPONIN T HIGH-SENSITIVITY 4-HR Timed 09/03/2024 3:23 PM ELECTRIC SCOOP OPERATOR URINALYSIS, MICROSCOPIC ONLY STAT 09/03/2024 12:46 PM ELECTRIC SCOOP OPERATOR URINALYSIS AND REFLEX TO MICROSCOPIC AND CULTURE STAT 09/03/2024 12:46 [address]IC SCOOP OPERATOR CT CERVICAL SPINE WO CONTRAST ED 09/03/2024 12:24 PM ELECTRIC SCOOP OPERATOR CT HEAD WO CONTRAST ED 09/03/2024 1 2:24 PM ELECTRIC SCOOP OPERATOR EGFR STAT 09/03/2024 10:33 AM ELECTRIC SCOOP OPERATOR DIFFERENTIAL AUTO STAT 09/03/2024 10: 33 AM ELECTRIC SCOOP OPERATOR TROPONIN T HIGH-SENSITIVITY SERIES (BASELINE, 2HR, 4HR, 6HR) STAT 09/03/2024 10:33 AM ELECTRIC SCOOP OPERATOR COMPREHENSIVE METABOLIC PANEL STAT 09/03/2024 10:33 AM ELECTRIC SCOOP OPERATOR CBC WITH AUTO DIFFERENTIAL STAT 09/03/2024 10:33 AM ELECTRIC SCOOP OPERATOR ECG 12-LEAD STAT 09/03/2024 8:46 AM ELECTRIC SCOOP OPERATOR HEMOGLOBIN A1C Routine 11/06/2021 8:28 PM CDT LIPID PANEL Routine 07/29/2017 4:39 AM ELECTRIC SCOOP OPERATOR from Last 3 Months or Most Recently Relevant to Health Maintenance Results * (ABNORMAL) Troponin T high-sensitivity 4-hour (09/03/2024 3:23 PM ELECTRIC SCOOP OPERATOR) Trop T hs 15(H) <=14 ng/L Comment: Interpretive Data For further hscTnT resources including the diagnostic algorithm and an aid in interpretation, copy and paste this link: https://nrl.testcatalog.org/show/hsTrop Current Interpretive Data last revised 2020. Trop T hs delta 1 ng/L [facility] ([place]) Trop T hs interp Insignificant [facility] ([place]) Blood 09/03/2024 3:23 PM ELECTRIC SCOOP OPERATOR 09/03/2024 3:27 PM ELECTRIC SCOOP OPERATOR Dandre Geronimo MD LAB BLOOD ORDERABLES Final R esult [facility] ([place]) 1 [facility] [place] [address] * (ABNORMAL) Urinalysis reflex to microscopic and culture Urine (09/03/2024 12:46 PM ELECTRIC SCOOP OPERATOR) Color, ur Yellow Yellow Clarity, ur Turbid(A) [...] tendency for uric acid stone formation. Source: [facility] Current Interpretive Data was last [...] [facility] ([place]) Urine 09/03/2024 12:4 6 PM ELECTRIC SCOOP OPERATOR 09/03/2024 12:49 PM ELECTRIC SCOOP OPERATOR Dandre Geronimo MD LAB MICROBIOLOGY - GENERAL O RDERABLES Final Result [facility] ([place]) 1 [facility] [place] [address] * (ABNORMAL) Urinalysis, microscopic only (09/03/2024 12:46 PM ELECTRIC SCOOP OPERATOR) WBC, ur 6-10(A) 0 - 5 /HPF [...] [facility] ([place]) Urine 09/03/2024 12:4 6 PM ELECTRIC SCOOP OPERATOR 09/03/2024 12:49 PM ELECTRIC SCOOP OPERATOR Dandre Geronimo MD LAB URINE ORDERABLES Final R esult [facility] [place] 1 [facility] [place] [address] * CT Cervical Spine WO Contrast (09/03/2024 12:24 PM ELECTRIC SCOOP OPERATOR) Anatomical Region Laterality Modality Spine N/A Computed Tomogra phy 09/03/2024 12:3 5 PM ELECTRIC SCOOP OPERATOR Narrative 09/03/2024 12:49 PM ELECTRIC SCOOP OPERATOR EXAM DESCRIPTION: CT HEAD WO CONTRAST; CT [...] Amauri Wilkinson M.D. MZ: SEAN Report ID: [id number] Reading Location: [id number] Procedure Note Amauri Wilkinson MD - 09/03/2024 [...] at least moderate spinal canal stenosis at C4-P4F8-X4 and C6-C7. There is multilevel facet osteoarthritis, [...] Amauri Wilkinson M.D. MZ: SEAN Report ID: [id number] Reading Location: [place] [address] us Can Ruffin Danny CLAY PIGEON SETTER IMG CT PROCEDURES Final Res ult * CT Head WO Contrast (09/03/2024 12:24 PM ELECTRIC SCOOP OPERATOR) Anatomical Region Laterality Modality Head and Neck N/A Computed Tomogra phy 09/03/2024 12:3 5 PM ELECTRIC SCOOP OPERATOR Narrative 09/03/2024 12:49 PM ELECTRIC SCOOP OPERATOR EXAM DESCRIPTION: CT HEAD WO CONTRAST; CT [...] Amauri Wilkinson M.D. MZ: SEAN Report ID: [id number] Reading Location: [id number] Procedure Note Amauri Wilkinson MD - 09/03/2024 [...] at least moderate spinal canal stenosis at C4-S4W2-P9 and C6-C7. There is multilevel facet osteoarthritis, [...] Amauri Wilkinson M.D. MZ: SEAN Report ID: [id number] Reading Location: [place] [address] Can Delgado NP IMG CT PROCEDURES Final Res ult * Troponin T high-sensitivity series (baseline, 2hr, 4hr, 6hr) (09/03/2024 10:33 AM ELECTRIC SCOOP OPERATOR) Trop T hs 14 <=14 ng/L Comment: Interpretive Data For further hscTnT resources including the diagnostic algorithm and an aid in interpretation, copy and paste this link: https://nrl.testcatalog.org/show/hsTrop Current Interpretive Data last revised 2020. Blood 09/03/2024 10:3 3 AM ELECTRIC SCOOP OPERATOR 09/03/2024 10:36 AM ELECTRIC SCOOP OPERATOR us Dandre Geronimo MD LAB BLOOD ORDERABLES Final R esult [facility] ([place]) 1 [facility] [place] [address] * (ABNORMAL) eGFR (09/03/2024 10:33 AM ELECTRIC SCOOP OPERATOR) Pathologist [facility] eGFR 32(L) >=60 mL/min/1. 73 m2 Comment: [...] reviewed 2021. Blood 09/03/2024 10:3 3 AM ELECTRIC SCOOP OPERATOR 09/03/2024 10:36 AM ELECTRIC SCOOP OPERATOR us Dandre Geronimo MD LAB BLOOD ORDERABLES Final R esult [facility]QUE [facility] ([place]) 1 [facility] Department [place] [address] * (ABNORMAL) Differential, auto (09/03/2024 10:33 AM ELECTRIC SCOOP OPERATOR) Neutrophil abs 3.7 1.5 - 6.5 K/cumm Imm gran abs 0.0 0.0 - 0.1 K/cumm [facility] ([place]) Lymphocyte abs 0.4(L) 0.8 - 3.3 K/cumm [facility] ([place]) Monocyte abs 0.6 0.2 - 0.8 K/cumm [facility] ([place]) Eosinophil abs 0.0 0.0 - 0.5 K/cumm [facility] ([place]) Basophil abs 0.0 0.0 - 0.1 K/cumm [facility] ([place]) Neutrophil pct 79.1 % [facility] ([place]) Comment: Consistent with previous result Interpretive Data [...] on 2017. Blood 09/03/2024 10:3 3 AM ELECTRIC SCOOP OPERATOR 09/03/2024 10:36 AM ELECTRIC SCOOP OPERATOR Dandre Geronimo MD LAB BLOOD ORDERABLES Final R esult [facility]QUE [facility] ([place]) 1 [facility] [place] [address] * (ABNORMAL) CBC with auto differential (09/03/2024 10:33 AM ELECTRIC SCOOP OPERATOR) WBC 4.6 3.8 - 9.9 K/cumm Hgb [...] [facility] ([place]) Blood 09/03/2024 10:3 3 AM ELECTRIC SCOOP OPERATOR 09/03/2024 10:36 AM ELECTRIC SCOOP OPERATOR Dandre Geronimo MD LAB BLOOD ORDERABLES Final R esult [facility] ([place]) 1 [facility] Department [place] [address] * (ABNORMAL) Comprehensive metabolic panel (09/03/2024 10:33 AM ELECTRIC SCOOP OPERATOR) Sodium 135 135 - 145 mmol/L Potassium, [...] [facility] ([place]) Blood 09/03/2024 10:3 3 AM ELECTRIC SCOOP OPERATOR 09/03/2024 10:36 AM ELECTRIC SCOOP OPERATOR Result [facility] Dandre Geronimo MD LAB BLOOD ORDERABLES Final R esult [facility]QUE [facility] ([place]) 1 [facility] Department [place] [address] * ECG 12 lead (09/03/2024 8:46 AM ELECTRIC SCOOP OPERATOR) 09/03/2024 8:46 AM ELECTRIC SCOOP OPERATOR Narrative [facility] - 09/03/2024 6:07 PM ELECTRIC SCOOP OPERATOR Vent Rate: 60 bpm RR Interval: 1000 msec WV Interval: 163 msec QRS Duration: 145 msec QT Interval: 429 msec QTC Interval: 429 msec P-R-T [place]: 70 - 2 - 1 degrees IMPRESSION: SINUS RHYTHM INDETERMINATE AXIS RIGHT BUNDLE BRANCH BLOCK [120+ ms QRS DURATION, UPRIGHT V1, 40+ ms S IN I/aVL/V4/V5/V6] POSSIBLE ANTERIOR MYOCARDIAL INFARCTION , PROBABLY OLD [30 ms Q WAVE IN V3/V4, OR R < 0.2 mV IN V4] ABNORMAL ECG Electronically Signed By: Abad Sanford MD Result [facility] Dandre Geronimo MD ECG ORDERABLES Final Result [facility] [employer] [facility] * (ABNORMAL) Hemoglobin A1c (11/06/2021 8:28 [...] and children were not included. (Diabetes Care 31:5419-7976, 2008). The eAG is not equivalent to a fasting glucose. Blood 11/06/2021 8:28 PM CDT 11/06/2021 8:45 PM CDT Result [facility] Bebeto Darden MD LAB BLOOD ORDERABLES Final Result [facility]IQUE [address] [facility] [place] [address] * (ABNORMAL) Lipid panel (07/29/2017 4:39 AM ELECTRIC SCOOP OPERATOR) Cholesterol 182 40 - 199 mg/dL ANGELIQUE [...] 2014. Blood specimen (specimen) 07/29/2017 4:39 AM ELECTRIC SCOOP OPERATOR 07/29/2017 5:11 AM ELECTRIC SCOOP OPERATOR Narrative [facility]QUE [facility] ([place]) - 07/29/2017 6:22 AM ELECTRIC SCOOP OPERATOR Jr Thomas MD LAB BLOOD ORDERABLES Final Resul t [facility] [place]) 1 [facility] [place] [address] from Last 3 Months or Most Recently Relevant to Health Maintenance Insurance [facility] MEDICARE HMO [facility] MEDICARE SOLUTIONS MEDICARE SOLUTIONS IDPA Advance Directives For more information, please contact: [phone] * Full Code (Latest Code Status on File) Date Activated Date Inactivated Comments 11/13/2021 11:09 PM 11/19/2021 8:47 PM * Full Code Date Activated Date Inactivated Comments 11/06/2021 8:16 PM 11/12/2021 8:24 PM * Full Code Date Activated Date Inactivated Comments 07/28/2017 7:26 AM 07/29/2017 5:48 PM Care Teams Vice President Of Manufacturing Relationship Specialty Start Date End Date No, Physician PCP - General 07/27/17
--- OUTSIDE RECORDS SUMMARY | 2024-09-05 12:09 | XMS_ITS | Clinical Summary ---
Author Organization [facility] Address 1 [place] [address] Care Team Providers Care Cloth Calender Name Role Phone No, Physician Primary Care Provider [phone] Allergies No known active allergies Medications metFORMIN [...] (12/15/2021): Added automatically from request for surgery [id number] Cervical radiculopathy due to intervertebral dis c disorder 12/15/2021 Overview (12/15/2021): Added automatically from request for surgery [id number] Glaucoma 11/13/2021 Benign essential HTN 11/06/2021 DELFINA [...] Department Care Team Description 09/03/2024 1:40 PM DATA SCIENCE AND IOT MANAGER - 09/03/2024 6:32 PM [facility] Emergency [facility] Emergency Department [address] [place] [address] Kory Holm MD Fall, initial encounter (Primary [...] any clubs o r organizations such as scientologist groups, unions, fraternal or athletic groups, or [...] on file Legal Sex Female 12:25 PM DATA SCIENCE AND IOT MANAGER Gender Identity Not on file Sexual Orientation Not on file 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 Not on file Obstetrics History Last Filed Vital Signs Vital Sign Reading Time Taken Comments Blood Pressure 134/81 09/03/2024 6:00 PM DATA SCIENCE AND IOT MANAGER Pulse 65 09/03/2024 6:00 PM DATA SCIENCE AND IOT MANAGER Temperature 36.1 C (97 F) 09/03/2024 8:39 AM DATA SCIENCE AND IOT MANAGER Respiratory Rate 16 09/03/2024 8:39 AM DATA SCIENCE AND IOT MANAGER Oxygen Saturation 98% 09/03/2024 6:00 PM DATA SCIENCE AND IOT MANAGER Inhaled Oxygen Concentration - - Weight 76.7 kg (169 lb) 09/03/2024 8:39 AM DATA SCIENCE AND IOT MANAGER Height 162.6 cm (5' 4 ) 04/07/2024 [...] T HIGH-SENSITIVITY 4-HR Timed 09/03/2024 3:23 PM DATA SCIENCE AND IOT MANAGER URINALYSIS, MICROSCOPIC ONLY STAT 09/03/2024 12:46 PM DATA SCIENCE AND IOT MANAGER URINALYSIS AND REFLEX TO MICROSCOPIC AND CULTURE STAT 09/03/2024 12:46 PM DATA SCIENCE AND IOT MANAGER CT CERVICAL SPINE WO CONTRAST ED 09/03/2024 12:24 PM DATA SCIENCE AND IOT MANAGER CT HEAD WO CONTRAST ED 09/03/2024 1 2:24 PM DATA SCIENCE AND IOT MANAGER EGFR STAT 09/03/2024 10:33 AM DATA SCIENCE AND IOT MANAGER DIFFERENTIAL AUTO STAT 09/03/2024 10: 33 AM DATA SCIENCE AND IOT MANAGER TROPONIN T HIGH-SENSITIVITY SERIES (BASELINE, 2HR, 4HR, 6HR) STAT 09/03/2024 10:33 AM DATA SCIENCE AND IOT MANAGER COMPREHENSIVE METABOLIC PANEL STAT 09/03/2024 10:33 AM DATA SCIENCE AND IOT MANAGER CBC WITH AUTO DIFFERENTIAL STAT 09/03/2024 10:33 AM DATA SCIENCE AND IOT MANAGER ECG 12-LEAD STAT 09/03/2024 8:46 AM DATA SCIENCE AND IOT MANAGER HEMOGLOBIN A1C Routine 11/06/2021 8:28 PM CDT LIPID PANEL Routine 07/29/2017 4:39 AM DATA SCIENCE AND IOT MANAGER from Last 3 Months or Most Recently Relevant to Health Maintenance Results * (ABNORMAL) Troponin T high-sensitivity 4-hour (09/03/2024 3:23 PM DATA SCIENCE AND IOT MANAGER) Trop T hs 15(H) <=14 ng/L Comment: Interpretive Data For further hscTnT resources including the diagnostic algorithm and an aid in interpretation, copy and paste this link: https://nrl.testcatalog.org/show/hsTrop Current Interpretive Data last revised 2020. Trop T hs delta 1 ng/L [facility] ([place]) Trop T hs interp Insignificant [facility] ([place]) Blood 09/03/2024 3:23 PM DATA SCIENCE AND IOT MANAGER 09/03/2024 3:27 PM DATA SCIENCE AND IOT MANAGER Dandre Geronimo MD LAB BLOOD ORDERABLES Final R esult [facility] ([place]) 1 [facility] [place] [address] * (ABNORMAL) Urinalysis reflex to microscopic and culture Urine (09/03/2024 12:46 PM DATA SCIENCE AND IOT MANAGER) Color, ur Yellow Yellow Clarity, ur Turbid(A) [...] tendency for uric acid stone formation. Source: [facility] [employer] Current Interpretive Data was last revised on 2017 Protein, ur ql 1+(A) Negative [facility] ([place]) Glucose, ur ql Negative Negative [facility] ([place]) Ketones, ur Negative Negative [facility] ([place]) Bilirubin, ur Negative Negative [facility] ([place]) Blood, ur Trace(A) Negative [facility] ([place]) Urobilinogen, ur <2.0 <2.0 mg/dL [facility] ([place]) Nitrite, ur Negative Negative [facility] ([place]) Leukocyte esterase, ur 1+(A) Negative [facility] ([place]) UA reflex comment Reflex to microscopic UA will be performed. [facility]QUE [facility] ([place]) Urine 09/03/2024 12:4 6 PM DATA SCIENCE AND IOT MANAGER 09/03/2024 12:49 PM DATA SCIENCE AND IOT MANAGER Dandre Geronimo MD LAB MICROBIOLOGY - GENERAL O RDERABLES Final Result Performing Organization Address City/[facility]/ZIP Co de Phone Number ANGELIQUE PINEDA ([place]) 1 [facility] [place] [address] [place] [address] * (ABNORMAL) Urinalysis, microscopic only (09/03/2024 12:46 PM DATA SCIENCE AND IOT MANAGER) WBC, ur 6-10(A) 0 - 5 /HPF RBC, ur 0-2 0 - 2 /HPF [facility] ([place]) Epithelial cells, squamous, ur 21-50(A) 0 - 5 /HPF [facility] ([place]) Bacteria, ur 4+(A) [facility] ([place]) Mucous, ur Present(A) [facility]ER A ([place]) Hyaline casts, ur 11-20(A) 0 - 10 /LPF [facility] Culture Reflex Comment Reflex conditions for urine culture (WBC >10) not met. [facility] ([place]) Urine 09/03/2024 12:4 6 PM DATA SCIENCE AND IOT MANAGER 09/03/2024 12:49 PM DATA SCIENCE AND IOT MANAGER Dandre Geronimo MD LAB URINE ORDERABLES Final R esult Performing Organization Address City/[facility]/ZIP Co de Phone Number ANGELIQUE [facility]ED[facility] ([place]) 1 [facility] [place] [address] [place] [address] * CT Cervical Spine WO Contrast (09/03/2024 12:24 PM DATA SCIENCE AND IOT MANAGER) Anatomical Region Laterality Modality Spine N/A Computed Tomogra phy 09/03/2024 12:3 5 PM DATA SCIENCE AND IOT MANAGER Narrative 09/03/2024 12:49 PM DATA SCIENCE AND IOT MANAGER EXAM DESCRIPTION: CT HEAD WO CONTRAST; CT [...] Amauri Wilkinson M.D. MZ: SEAN Report ID: [id number] Reading Location: [place] [address] Procedure Note Amauri Wilkinson MD - 09/03/2024 [...] at least moderate spinal canal stenosis at C4-V2Z9-A6 and C6-C7. There is multilevel facet osteoarthritis, [...] Amauri Wilkinson M.D. MZ: SEAN Report ID: [id number] Reading Location: [id number] Can Delgado NP IMG CT PROCEDURES Final Res ult * CT Head WO Contrast (09/03/2024 12:24 PM DATA SCIENCE AND IOT MANAGER) Anatomical Region Laterality Modality Head and Neck N/A Computed Tomogra phy 09/03/2024 12:3 5 PM DATA SCIENCE AND IOT MANAGER Narrative 09/03/2024 12:49 PM DATA SCIENCE AND IOT MANAGER EXAM DESCRIPTION: CT HEAD WO CONTRAST; CT [...] Amauri Wilkinson M.D. MZ: SEAN Report ID: [id number] Reading Location: [id number] Procedure Note Amauri Wilkinson MD - 09/03/2024 [...] at least moderate spinal canal stenosis at C4-C2G1-S5 and C6-C7. There is multilevel facet osteoarthritis, [...] Amauri Wilkinson M.D. MZ: SEAN Report ID: [id number] Reading Location: [id number] Can Delgado NP IMG CT PROCEDURES Final Res ult * Troponin T high-sensitivity series (baseline, 2hr, 4hr, 6hr) (09/03/2024 10:33 AM DATA SCIENCE AND IOT MANAGER) Trop T hs 14 <=14 ng/L Comment: Interpretive Data For further hscTnT resources including the diagnostic algorithm and an aid in interpretation, copy and paste this link: https://nrl.testcatalog.org/show/hsTrop Current Interpretive Data last revised 2020. Blood 09/03/2024 10:3 3 AM DATA SCIENCE AND IOT MANAGER 09/03/2024 10:36 AM DATA SCIENCE AND IOT MANAGER Dandre Geronimo MD LAB BLOOD ORDERABLES Final R esult Performing Organization Address City/[facility]/ZIP Co de Phone Number ANGELIQUE PINEDA ([place]) [address] [place] [address] [place] [address] * (ABNORMAL) eGFR (09/03/2024 10:33 AM DATA SCIENCE AND IOT MANAGER) eGFR 32(L) >=60 mL/min/1. 73 m2 Comment: [...] reviewed 2021. Blood 09/03/2024 10:3 3 AM DATA SCIENCE AND IOT MANAGER 09/03/2024 10:36 AM DATA SCIENCE AND IOT MANAGER Dandre Geronimo MD LAB BLOOD ORDERABLES Final R esult ANGELIQUE [facility]EDA ([place]) 1 [facility] [place] [place] [address] * (ABNORMAL) Differential, auto (09/03/2024 10:33 AM DATA SCIENCE AND IOT MANAGER) Neutrophil abs 3.7 1.5 - 6.5 K/cumm Imm gran abs 0.0 0.0 - 0.1 K/cumm [facility] ([place]) Lymphocyte abs 0.4(L) 0.8 - 3.3 K/cumm [...] on 2017. Blood 09/03/2024 10:3 3 AM DATA SCIENCE AND IOT MANAGER 09/03/2024 10:36 AM DATA SCIENCE AND IOT MANAGER Dandre Geronimo MD LAB BLOOD ORDERABLES Final R esult ANGELIQUE [facility]EDA ([place]) 1 [facility] [place] [address] * (ABNORMAL) CBC with auto differential (09/03/2024 10:33 AM DATA SCIENCE AND IOT MANAGER) WBC 4.6 3.8 - 9.9 K/cumm Hgb [...] NRBC abs 0.00 0.00 - 0.01 K/cumm [facility] Blood 09/03/2024 10:3 3 AM DATA SCIENCE AND IOT MANAGER 09/03/2024 10:36 AM DATA SCIENCE AND IOT MANAGER us Dandre Geronimo MD LAB BLOOD ORDERABLES Final R esult ANGELIQUE [facility]EDA ([place]) 1 [facility] [place] [address] * (ABNORMAL) Comprehensive metabolic panel (09/03/2024 10:33 AM DATA SCIENCE AND IOT MANAGER) Pathologist [facility] Sodium 135 135 - 145 mmol/L Potassium, [...] [facility] ([place]) Blood 09/03/2024 10:3 3 AM DATA SCIENCE AND IOT MANAGER 09/03/2024 10:36 AM DATA SCIENCE AND IOT MANAGER us Dandre Geronimo MD LAB BLOOD ORDERABLES Final R esult [facility] ([place] 1 [facility] [place] [address] * ECG 12 lead (09/03/2024 8:46 AM DATA SCIENCE AND IOT MANAGER) 09/03/2024 8:46 AM DATA SCIENCE AND IOT MANAGER Narrative [facility] - 09/03/2024 6:07 PM DATA SCIENCE AND IOT MANAGER Vent Rate: 60 bpm RR Interval: 1000 msec ND Interval: 163 msec QRS Duration: 145 msec QT Interval: 429 msec QTC Interval: 429 msec P-R-T [place]: 70 - 2 - 1 degrees IMPRESSION: [...] ECG ORDERABLES Final Result Performing Organization Address City/[facility]/ZIP Co de Phone Number [facility] [employer] [facility] * (ABNORMAL) Hemoglobin A1c (11/06/2021 8:28 PM CDT) Hgb A1C 6.8(H) 4.0 - 5.6 % [facility]ELIQUE HORTON Estimated Average Glucose 148 mg/dL ANGELIQUE HORTON Comment: The ADA recommends reporting an estimated Average Glucose (eAG) with all Hemoglobin A1c results using the equation derived from a study of 507 normal and diabetic adults. Minority populations were underrepresented and children were not included. (Diabetes Care 31:0428-3183, 2008). The eAG is not equivalent to a fasting glucose. Blood 11/06/2021 8:28 PM CDT 11/06/2021 8:45 PM CDT Bebeto Darden MD LAB BLOOD ORDERABLES Final Result ANG[facility]IQUE [address] [facility] [place] [address] * (ABNORMAL) Lipid panel (07/29/2017 4:39 AM DATA SCIENCE AND IOT MANAGER) Cholesterol 182 40 - 199 mg/dL [facility] ([place]) Comment: Interpretive Data Desirable: Less than [...] 2014. Blood specimen (specimen) 07/29/2017 4:39 AM DATA SCIENCE AND IOT MANAGER 07/29/2017 5:11 AM DATA SCIENCE AND IOT MANAGER Narrative ANGELIQUE [facility] ([place]) - 07/29/2017 6:22 AM DATA SCIENCE AND IOT MANAGER Jr Thomas MD LAB BLOOD ORDERABLES Final Resul t ANGELIQUE [facility] ([place]) 1 [facility] [place] [address] from Last 3 Months or Most Recently Relevant to Health Maintenance Insurance [facility] MEDICARE O [facility] OTHER Address: [address] [address] [place] [address] [facility] MEDICARE SOLUTIONS MEDICARE SOLUTIONS [facility] [place] MEDICARE Address: [address] [address] [place] [address] IDPA Advance Directives For more information, please contact: [phone] * Full Code (Latest Code Status on File) Date Activated Date Inactivated Comments 11/13/2021 11:09 PM 11/19/2021 8:47 PM * Full Code Date Activated Date Inactivated Comments 11/06/2021 8:16 PM 11/12/2021 8:24 PM * Full Code Date Activated Date Inactivated Comments 07/28/2017 7:26 AM 07/29/2017 5:48 PM Care Teams Cloth Calender Relationship Specialty Start Date End Date No, Physician PCP - General 07/27/17
--- OUTSIDE RECORDS SUMMARY | 2024-09-05 12:09 | XMS_ITS | Clinical Summary ---
Author Organization [facility] Address [address] [place] [address] Phone Care Team Providers Care Tuber Helper Name Role Phone Sanchez Tavares Primary Care Provider [phone] Social History Tobacco Use Types Packs/Day Years [...] topic Insurance MEDICARE C [employer] Care Teams Tuber Helper Relationship Specialty Start Date End Date Sanchez Tavares, PAC [address] [place] [address] PCP - General Physician Entertainer Or Variety Artist 02/24/22
[2024-09-05 18:40] LABS: Add Urine Microscopic? YES; Appearance Urine Cloudy (Clear); Bacteria Urine 3+ /hpf; Bilirubin Urine Negative (Negative); Blood Urine Negative (Negative); Color Urine Yellow (Yellow); Glucose Urine UA Negative (Negative); Ketones Urine Negative (Negative); Leukocyte Esterase Ur Trace LEU/UL (Negative); Need Manual Microscopic Reviewed; Nitrate Urine Negative (Negative); Non Pathogenic Casts >20; Protein Urine 1+ mg/dL (Negative); RBC Urine 0-2 /hpf (0-2); Squamous Epithelial Cell Urine Many /hpf (Few); Urobilinogen Urine 0.2 mg/dL (<2.0); pH Urine 5.5 (5.0-9.0)
== END 2024-09-05 11:22 | disposition home or self-care (01) ==
LOC: ANHBWCLAB 11:22
PROVIDERS: PCP Nurse Practitioner Adult Health; Visit Provider Nurse Practitioner Adult Health
DX: R68.89 Other general symptoms and signs (principal); R39.9 Unspecified symptoms and signs involving the genitourinary system
CPT/HCPCS: 81001; 87086

== ENCOUNTER 2024-10-02 09:04 | Outpatient (CLI) | payer MEDICARE, MEDICAID, SELFPAY ==
--- OUTSIDE RECORDS SUMMARY | 2024-10-02 09:45 | XMS_ITS | Continuity of Care Document ---
Author Organization [facility] Address [address] [place] [address] [address] [place] [address] Phone Care Team Providers Care Assistant Plant Controller Name Role Phone Kaylen Dominguez Unavailable Unavailable Procedures Procedure Date Eye Exam, New Patient Advance Directives Directive Yes / No Effective Date File Name No Information Encounters Encounter Description Practice Location Reason(s) For Visit Diagnoses Date Provider Providers Copied on Encounter [facility], [id number] [place] [address] [address], [place], [place], [id number], [place] tel:[phone] [facility] No Information [address] Angelica Abdullahi. [address] , [address], [place], [address], [place]. tel:[phone] Family History Family Member Type Diagnosis Age At Onset No Information Payers Payer name Insurance type Covered constitution party ID Authoriza tielizabeth(s) [facility] Commercial CI [id number] Social History Type Description Quantity Date Captured [...]
--- OUTSIDE RECORDS SUMMARY | 2024-10-02 09:45 | XMS_ITS | Clinical Summary ---
Author Organization [facility] Address [address] [place] [address] Phone Care Team Providers Care Software Technician Name Role Phone Sanchez Tavares Primary Care Provider [phone] Social History Tobacco Use Types Packs/Day Years [...] complete this topic Insurance [place] [address] Care Teams Software Technician Relationship Specialty Start Date End Date Sanchez Tavares, PAC [address] [place] [address] PCP - General Physician Mortgage Counselor 02/24/22
--- OUTSIDE RECORDS SUMMARY | 2024-10-02 09:45 | XMS_ITS | Continuity of Care Document ---
Author Organization [facility] Address [address] [place] [address] Phone Care Team Providers Care Referral Rn Name Role Phone Jude Fernandez MD Unavailable [...] OFFICE/OUTPAT IENT VISIT EST [facility], [address], [address], tel:[phone] [facility] [place] Fracture of metatarsal bone(s), closed 0- 5 Rebecca Roque. [address] [place], [place], [id number] . tel: [phone] [facility], [address], [place], [address], [place] tel:[phone] [facility] [place] Fracture of metatarsal bone(s), closed 0-201 5 Bagwe Jude. [address] , [place], [place], [id number] . tel: [phone] OFFICE/OUTPAT IENT VISIT EST [facility], [address], [place], [address], [place] tel:[phone] [facility] [place] Fracture of metatarsal bone(s), closed Oct- 5 Bagmarcio Roque. [address], [place], [place], [id number] . tel: [phone] OFFICE CONSULTATION [facility], [address], [place], [address], [place] tel:[phone] [facility] [place] OverweightFractu re of metatarsal bone(s), closedMorton's neuroma Oct- 5 Rebecca Roque. [address], [place], [place], [address] . tel: [phone] Referring Provider: Emily Lantigua [facility] [address], [place], [address]. tel:[phone] Family History Family Member Type Diagnosis Age [...]
--- OUTSIDE RECORDS SUMMARY | 2024-10-02 09:45 | XMS_ITS | Referral Summary ---
Author Organization [facility] Address [address] [place] [address] Care Team Providers Care Extrusion Supervisor Name Role Phone No, Physician Primary Care Provider [phone] Encounters Date Type Department Care Team Description 09/03/2024 1:40 PM PLAN MANAGER - 09/03/2024 6:32 PM PLAN MANAGER Emergency [facility] Emergency Department [address] [place] [address] Kory Holm MD Fall, initial encounter (Primary [...] (12/15/2021): Added automatically from request for surgery [id number] Cervical radiculopathy due to intervertebral dis c disorder 12/15/2021 Overview (12/15/2021): Added automatically from request for surgery [id number] Glaucoma 11/13/2021 Benign essential HTN 11/06/2021 DELFINA (acute kidney injury) 11/06/2021 C2 cervical fracture 11/06/2021 DVT prophylaxis 11/06/2021 Cervical compression fracture, initial encounter 11/06/2021 Paresthesia of left upper extremity 07/27/2017 Paresthesia of right upper extremity 07/27/2017 Type 2 diabetes mellitus 12/08/2013 Overview (10/29/2016): DMII WO CMP UNCNTRLD Pain in thoracic spine 12/08/2013 Overview (10/29/2016): PAIN IN THORACIC SPINE Abdominal pain Immunizations Immunization Administration Dates Next Due Influenza, Quadrivalent, Hig [...] often do you attend chur ch or mu-ism services? 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 Not on file Not on file Last Filed Vital Signs Vital Sign Reading Time Taken Comments Blood Pressure 134/81 09/03/2024 6:00 PM PLAN MANAGER Pulse 65 09/03/2024 6:00 PM PLAN MANAGER Temperature 36.1 C (97 F) 09/03/2024 8:39 AM PLAN MANAGER Respiratory Rate 16 09/03/2024 8:39 AM PLAN MANAGER Oxygen Saturation 98% 09/03/2024 6:00 PM PLAN MANAGER Inhaled Oxygen Concentration - - Weight 76.7 kg (169 lb) 09/03/2024 8:39 AM PLAN MANAGER Height 162.6 cm (5' 4 ) 04/07/2024 3:01 PM CDT Body Mass Index 29.01 04/07/2024 3:01 PM CDT Plan of Treatment Not on file Procedures Procedure Name Priority Date/Time Associated Diagnosis Comments TROPONIN T HIGH-SENSITIVITY 4-HR Timed 09/03/2024 3:23 PM PLAN MANAGER URINALYSIS, MICROSCOPIC ONLY STAT 09/03/2024 12:46 PM PLAN MANAGER URINALYSIS AND REFLEX TO MICROSCOPIC AND CULTURE STAT 09/03/2024 12:[address] CERVICAL SPINE WO CONTRAST ED 09/03/2024 12:[address] HEAD WO CONTRAST ED 09/03/2024 1 2:24 PM PLAN MANAGER EGFR STAT 09/03/2024 10:33 AM PLAN MANAGER DIFFERENTIAL AUTO STAT 09/03/2024 10: 33 AM PLAN MANAGER TROPONIN T HIGH-SENSITIVITY SERIES (BASELINE, 2HR, 4HR, 6HR) STAT 09/03/2024 10:33 AM PLAN MANAGER COMPREHENSIVE METABOLIC PANEL STAT 09/03/2024 10:33 AM PLAN MANAGER CBC WITH AUTO DIFFERENTIAL STAT 09/03/2024 10:33 AM PLAN MANAGER ECG 12-LEAD STAT 09/03/2024 8:46 AM PLAN MANAGER HEMOGLOBIN A1C Routine 11/06/2021 8:28 PM CDT LIPID PANEL Routine 07/29/2017 4:39 AM PLAN MANAGER from Last 3 Months or Most Recently Relevant to Health Maintenance Results * (ABNORMAL) Troponin T high-sensitivity 4-hour (09/03/2024 3:23 PM PLAN MANAGER) Trop T hs 15(H) <=14 ng/L Comment: Interpretive Data For further hscTnT resources including the diagnostic algorithm and an aid in interpretation, copy and paste this link: https://nrl.testcatalog.org/show/hsTrop Current Interpretive Data last revised 2020. Trop T hs delta 1 ng/L [facility] ([facility]) Trop T hs interp Insignificant [facility] ([facility]) Blood 09/03/2024 3:23 PM PLAN MANAGER 09/03/2024 3:27 PM PLAN MANAGER Dandre Geronimo MD LAB BLOOD ORDERABLES Final R esult [facility] EDWIN ([facility]) 1 [facility] Department [place] [address] * (ABNORMAL) Urinalysis reflex to microscopic and culture Urine (09/03/2024 12:46 PM PLAN MANAGER) Color, ur Yellow Yellow Clarity, ur Turbid(A) Clear ABHIS[facility]KNER A ([place]) Specific gravity, ur 1.020 1.003 - 1.030 [facility] ([facility]) pH, urine 5.5 [facility] ([place]) Comment: Interpretive Data U rine pH is affected by diet, medications, systemic acid-base disturbances, and renal tubular function. pH may affect urinary stone formation. For example, urine pH below 6.0 may help reduce the tendency for calcium phosphate stones and pH greater than 6.0 may reduce the tendency for uric acid stone formation. Source: [facility] Current Interpretive Data was last revised [...] Reflex to microscopic UA will be performed. [facility] ([facility]) Urine 09/03/2024 12:4 6 PM PLAN MANAGER 09/03/2024 12:49 PM PLAN MANAGER Dandre Geronimo MD LAB MICROBIOLOGY - GENERAL O RDERABLES Final Result Performing Organization Address City/State/[facility] Co de Phone Number [facility] ([place]) 1 [facility] Department [place] [address] * (ABNORMAL) Urinalysis, microscopic only (09/03/2024 12:46 PM PLAN MANAGER) WBC, ur 6-10(A) 0 - 5 [...] urine culture (WBC >10) not met. [facility] ([place]) Urine 09/03/2024 12:4 6 PM PLAN MANAGER 09/03/2024 12:49 PM PLAN MANAGER Dandre Geronimo MD LAB URINE ORDERABLES Final R esult [facility]) 1 [facility] Department [place] [address] * CT Cervical Spine WO Contrast (09/03/2024 12:24 PM PLAN MANAGER) Anatomical Region Laterality Modality Spine N/A Computed Tomogra phy 09/03/2024 12:3 5 PM PLAN MANAGER Narrative 09/03/2024 12:49 PM PLAN MANAGER EXAM DESCRIPTION: CT HEAD WO CONTRAST; [...] Amauri Wilkinson M.D. MZ: SEAN Report ID: [id number] Reading Location: [id number] Procedure Note Amauri Wilkinson MD - 09/03/2024 [...] at least moderate spinal canal stenosis at C4-P1Q2-O4 and C6-C7. There is multilevel facet osteoarthritis, [...] Amauri Wilkinson M.D. MZ: SEAN Report ID: [id number] Reading Location: [id number] Can Delgado NP IMG CT PROCEDURES Final Res ult * CT Head WO Contrast (09/03/2024 12:24 PM PLAN MANAGER) Anatomical Region Laterality Modality Head and Neck N/A Computed Tomogra phy 09/03/2024 12:3 5 PM PLAN MANAGER Narrative 09/03/2024 12:49 PM PLAN MANAGER EXAM DESCRIPTION: CT HEAD WO CONTRAST; [...] Amauri Wilkinson M.D. MZ: SEAN Report ID: [id number] Reading Location: [id number] Procedure Note Amauri Wilkinson MD - 09/03/2024 [...] at least moderate spinal canal stenosis at C4-J7Z9-W4 and C6-C7. There is multilevel facet osteoarthritis, [...] Amauri Wilkinson M.D. MZ: SEAN Report ID: [id number] Reading Location: [place] [address] Can Delgado NP IMG CT PROCEDURES Final Res ult * Troponin T high-sensitivity series (baseline, 2hr, 4hr, 6hr) (09/03/2024 10:33 AM PLAN MANAGER) Trop T hs 14 <=14 ng/L Comment: Interpretive Data For further hscTnT resources including the diagnostic algorithm and an aid in interpretation, copy and paste this link: https://nrl.testcatalog.org/show/hsTrop Current Interpretive Data last revised 2020. Blood 09/03/2024 10:3 3 AM PLAN MANAGER 09/03/2024 10:36 AM PLAN MANAGER us Dandre Gernoimo MD LAB BLOOD ORDERABLES Final R esult [facility] ([facility]) 1 [facility] Department [place] [address] * (ABNORMAL) eGFR (09/03/2024 10:33 AM PLAN MANAGER) eGFR 32(L) >=60 mL/min/1. 73 m2 [...] reviewed 2021. Blood 09/03/2024 10:3 3 AM PLAN MANAGER 09/03/2024 10:36 AM PLAN MANAGER us Dandre Geronimo MD LAB BLOOD ORDERABLES Final R esult [facility] PINEDA ([place]) 1 [facility] Department [place] [address] * (ABNORMAL) Differential, auto (09/03/2024 10:33 AM PLAN MANAGER) Neutrophil abs 3.7 1.5 - 6.5 K/cumm Imm gran abs 0.0 0.0 - 0.1 K/cumm [facility] ([place]) Lymphocyte abs 0.4(L) 0.8 - 3.3 K/cumm [facility] ([facility]) Monocyte abs 0.6 0.2 - 0.8 K/cumm [facility] ([facility]) Eosinophil abs 0.0 0.0 - 0.5 K/cumm [facility] ([facility]) Basophil abs 0.0 0.0 - 0.1 K/cumm [facility] ([place]) Neutrophil pct 79.1 % [facility] ([facility]) Comment: Consistent with previous result Interpretive Data Percent cell count reference ranges are not reported, since discordance with absolute values may lead to misinterpretation of CBC data. Current Interpretive Data was last revised on 2017. Imm gran pct 0.4 % [facility] ([facility]) Comment: Interpretive Data Percent cell count reference [...] on 2017. Blood 09/03/2024 10:3 3 AM PLAN MANAGER 09/03/2024 10:36 AM PLAN MANAGER Dandre Geronimo MD LAB BLOOD ORDERABLES Final R esult [facility] ([place]) 1 [facility] Department [place] [address] * (ABNORMAL) CBC with auto differential (09/03/2024 10:33 AM PLAN MANAGER) WBC 4.6 3.8 - 9.9 K/cumm [...] [facility] ([facility]) Blood 09/03/2024 10:3 3 AM PLAN MANAGER 09/03/2024 10:36 AM PLAN MANAGER Dandre Geronimo MD LAB BLOOD ORDERABLES Final R esult [facility] ([place]) 1 [facility] Department [place] [address] * (ABNORMAL) Comprehensive metabolic panel (09/03/2024 10:33 AM PLAN MANAGER) Sodium 135 135 - 145 mmol/L Potassium, [...] [facility] ([facility]) Blood 09/03/2024 10:3 3 AM PLAN MANAGER 09/03/2024 10:36 AM PLAN MANAGER Result [facility] Dandre Geronimo MD LAB BLOOD ORDERABLES Final R esult [facility] PINEDA ([place]) 1 [facility] [place] [address] * ECG 12 lead (09/03/2024 8:46 AM PLAN MANAGER) 09/03/2024 8:46 AM PLAN MANAGER Narrative [facility] - 09/03/2024 6:07 PM PLAN MANAGER Vent Rate: 60 bpm RR Interval: 1000 msec ND Interval: 163 msec QRS Duration: 145 msec QT Interval: 429 msec QTC Interval: 429 msec P-R-T Jackpot: 70 - 2 - 1 degrees IMPRESSION: SINUS RHYTHM INDETERMINATE AXIS RIGHT BUNDLE BRANCH BLOCK [120+ ms QRS DURATION, UPRIGHT V1, 40+ ms S IN I/aVL/V4/V5/V6] POSSIBLE ANTERIOR MYOCARDIAL INFARCTION , PROBABLY OLD [30 ms Q WAVE IN V3/V4, OR R < 0.2 mV IN V4] ABNORMAL ECG Electronically Signed By: Abad Sanford MD Result [facility] Dandre Geronimo MD ECG ORDERABLES Final Result Performing Organization Address [facility] Co de Phone Number [facility] * (ABNORMAL) Hemoglobin A1c (11/06/2021 [...] and children were not included. (Diabetes Care [id number], 2008). The eAG is not equivalent to a fasting glucose. Blood 11/06/2021 8:28 PM CDT 11/06/2021 8:45 PM CDT Bebeto Darden MD LAB BLOOD ORDERABLES Final Result [facility] [address] [facility] [place] [address] * (ABNORMAL) Lipid panel (07/29/2017 4:39 AM PLAN MANAGER) Cholesterol 182 40 - 199 mg/dL [...] 2014. Blood specimen (specimen) 07/29/2017 4:39 AM PLAN MANAGER 07/29/2017 5:11 AM PLAN MANAGER Narrative [facility] ([place]) - 07/29/2017 6:22 AM PLAN MANAGER us Jr William MD LAB BLOOD ORDERABLES Final Resul t [facility] ([place]) 1 [facility] [place] [address] from Last 3 Months or Most Recently Relevant to Health Maintenance Insurance [employer] MEDICARE HMO [facility] MEDICARE SOLUTIONS MEDICARE SOLUTIONS IDPA Advance Directives For more information, please contact: [phone] * Full Code (Latest Code Status on File) Date Activated Date Inactivated Comments 11/13/2021 11:09 PM 11/19/2021 8:47 PM * Full Code Date Activated Date Inactivated Comments 11/06/2021 8:16 PM 11/12/2021 8:24 PM * Full Code Date Activated Date Inactivated Comments 07/28/2017 7:26 AM 07/29/2017 5:48 PM Care Teams Extrusion Supervisor Relationship Specialty Start Date End Date No, Physician PCP - General 07/27/17
--- OUTSIDE RECORDS SUMMARY | 2024-10-02 09:45 | XMS_ITS | Clinical Summary ---
Author Organization [facility] Address [address] [place] [address] Care Team Providers Care Metallography Teacher Name Role Phone No, Physician Primary Care Provider [phone] Allergies No known active allergies Medications metFORMIN [...] (12/15/2021): Added automatically from request for surgery [id number] Cervical radiculopathy due to intervertebral dis c disorder 12/15/2021 Overview (12/15/2021): Added automatically from request for surgery [id number] Glaucoma 11/13/2021 Benign essential HTN 11/06/2021 DELFINA [...] Department Care Team Description 09/03/2024 1:40 PM DRAFTING INSTRUCTOR - 09/03/2024 6:32 PM DRAFTING INSTRUCTOR Emergency [facility] Emergency Department [address] [place] [id number] Kory Holm MD Fall, initial encounter (Primary Dx) Discharge Disposition: Discharge to home or self care from Last 3 Months Immunizations Immunization Administration Dates Next Due Influenza, [...] often do you attend chur ch or yazidi services? 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 file Not on file Obstetrics History Last Filed Vital Signs Vital Sign Reading Time Taken Comments Blood Pressure 134/81 09/03/2024 6:00 PM DRAFTING INSTRUCTOR Pulse 65 09/03/2024 6:00 PM DRAFTING INSTRUCTOR Temperature 36.1 C (97 F) 09/03/2024 8:39 AM DRAFTING INSTRUCTOR Respiratory Rate 16 09/03/2024 8:39 AM DRAFTING INSTRUCTOR Oxygen Saturation 98% 09/03/2024 6:00 PM DRAFTING INSTRUCTOR Inhaled Oxygen Concentration - - Weight 76.7 kg (169 lb) 09/03/2024 8:39 AM DRAFTING INSTRUCTOR Height 162.6 cm (5' 4 ) 04/07/2024 [...] Fall Risk Assessment 01/05/2023 01/05/2022 Covid-19 Vaccine ( - 2023-2 5 season) 2024 08/03/2021, 12/20/2020, 11/22/2020 Influenza Vaccine (#1) 2024 , 06/02/2020, 04/27/2019, Additional history exists eGFR 09/03/2025 09/03/2024, 12/23, 11/19/2021, Additional history exists DTaP/Tdap/Td Vaccine (2 - Td or Tdap) 04/07/2034 04/07/2024 Pneumococcal vaccine 65+ Completed 08/17/2019, 02/2019 Procedures Procedure Name Priority Date/Time Associated Diagnosis Comments TROPONIN T HIGH-SENSITIVITY 4-HR Timed 09/03/2024 3:23 PM DRAFTING INSTRUCTOR URINALYSIS, MICROSCOPIC ONLY STAT 09/03/2024 12:46 PM DRAFTING INSTRUCTOR URINALYSIS AND REFLEX TO MICROSCOPIC AND CULTURE STAT 09/03/2024 12:[address] CERVICAL SPINE WO CONTRAST ED 09/03/2024 12:[address] HEAD WO CONTRAST ED 09/03/2024 1 2:24 PM DRAFTING INSTRUCTOR EGFR STAT 09/03/2024 10:33 AM DRAFTING INSTRUCTOR DIFFERENTIAL AUTO STAT 09/03/2024 10: 33 AM DRAFTING INSTRUCTOR TROPONIN T HIGH-SENSITIVITY SERIES (BASELINE, 2HR, 4HR, 6HR) STAT 09/03/2024 10:33 AM DRAFTING INSTRUCTOR COMPREHENSIVE METABOLIC PANEL STAT 09/03/2024 10:33 AM DRAFTING INSTRUCTOR CBC WITH AUTO DIFFERENTIAL STAT 09/03/2024 10:33 AM DRAFTING INSTRUCTOR ECG 12-LEAD STAT 09/03/2024 8:46 AM DRAFTING INSTRUCTOR HEMOGLOBIN A1C Routine 11/06/2021 8:28 PM CDT LIPID PANEL Routine 07/29/2017 4:39 AM DRAFTING INSTRUCTOR from Last 3 Months or Most Recently Relevant to Health Maintenance Results * (ABNORMAL) Troponin T high-sensitivity 4-hour (09/03/2024 3:23 PM DRAFTING INSTRUCTOR) Trop T hs 15(H) <=14 ng/L Comment: Interpretive Data For further hscTnT resources including the diagnostic algorithm and an aid in interpretation, copy and paste this link: https://nrl.testcatalog.org/show/hsTrop Current Interpretive Data last revised 2020. Trop T hs delta 1 ng/L [facility] ([place]) Trop T hs interp Insignificant [facility] ([place]) Blood 09/03/2024 3:23 PM DRAFTING INSTRUCTOR 09/03/2024 3:27 PM DRAFTING INSTRUCTOR us Dandre Geronimo MD LAB BLOOD ORDERABLES Final R esult [facility] ([place]) 1 [facility] Department [place] [address] * (ABNORMAL) Urinalysis reflex to microscopic and culture Urine (09/03/2024 12:46 PM DRAFTING INSTRUCTOR) Color, ur Yellow Yellow Clarity, ur Turbid(A) [...] tendency for uric acid stone formation. Source: [facility] THREAT STREAM Current Interpretive Data was last revised on 2017 Protein, ur ql 1+(A) Negative [facility] ([place]) Glucose, ur ql Negative Negative [facility] ([place]) Ketones, ur Negative Negative [facility] ([place]) Bilirubin, ur Negative Negative [facility] ([place]) Blood, ur Trace(A) Negative [facility] ([place]) Urobilinogen, ur <2.0 <2.0 mg/dL [facility] ([place]) Nitrite, ur Negative Negative [facility] ([place]) Leukocyte esterase, ur 1+(A) Negative [facility] ([place]) UA reflex comment Reflex to microscopic UA will be performed. [facility] ([place]) Urine 09/03/2024 12:4 6 PM DRAFTING INSTRUCTOR 09/03/2024 12:49 PM DRAFTING INSTRUCTOR Dandre Geronimo MD LAB MICROBIOLOGY - GENERAL O RDERABLES Final Result Performing Organization Address [facility] Co de Phone Number [facility] ([place]) 1 [facility] [place] [address] * (ABNORMAL) Urinalysis, microscopic only (09/03/2024 12:46 PM DRAFTING INSTRUCTOR) WBC, ur 6-10(A) 0 - 5 /HPF [...] for urine culture (WBC >10) not met. [facility] ([place]) Urine 09/03/2024 12:4 6 PM DRAFTING INSTRUCTOR 09/03/2024 12:49 PM DRAFTING INSTRUCTOR Dandre Geronimo MD LAB URINE ORDERABLES Final R esult Performing Organization Address [facility] Co de Phone Number [facility] ([place]) 1 [facility] [place] [address] * CT Cervical Spine WO Contrast (09/03/2024 12:24 PM DRAFTING INSTRUCTOR) Anatomical Region Laterality Modality Spine N/A Computed Tomogra phy 09/03/2024 12:3 5 PM DRAFTING INSTRUCTOR Narrative 09/03/2024 12:49 PM DRAFTING INSTRUCTOR EXAM DESCRIPTION: CT HEAD WO CONTRAST; CT [...] Amauri Wilkinson M.D. MZ: SEAN Report ID: [id number] Reading Location: [id number] Procedure Note Amauri Wilkinson MD - 09/03/2024 [...] at least moderate spinal canal stenosis at C4-O6V5-S3 and C6-C7. There is multilevel facet osteoarthritis, [...] Amauri Wilkinson M.D. MZ: SEAN Report ID: [id number] Reading Location: [id number] us Can Delgado NP IMG CT PROCEDURES Final Res ult * CT Head WO Contrast (09/03/2024 12:24 PM DRAFTING INSTRUCTOR) Anatomical Region Laterality Modality Head and Neck N/A Computed Tomogra phy 09/03/2024 12:3 5 PM DRAFTING INSTRUCTOR Narrative 09/03/2024 12:49 PM DRAFTING INSTRUCTOR EXAM DESCRIPTION: CT HEAD WO CONTRAST; CT [...] Amauri Wilkinson M.D. MZ: SEAN Report ID: [id number] Reading Location: [id number] Procedure Note Amauri Wilkinson MD - 09/03/2024 [...] at least moderate spinal canal stenosis at C4-J9N7-L9 and C6-C7. There is multilevel facet osteoarthritis, [...] Amauri Wilkinson M.D. MZ: SEAN Report ID: [id number] Reading Location: [id number] Can Delgado NP IMG CT PROCEDURES Final Res ult * Troponin T high-sensitivity series (baseline, 2hr, 4hr, 6hr) (09/03/2024 10:33 AM DRAFTING INSTRUCTOR) Trop T hs 14 <=14 ng/L Comment: Interpretive Data For further hscTnT resources including the diagnostic algorithm and an aid in interpretation, copy and paste this link: https://nrl.testcatalog.org/show/hsTrop Current Interpretive Data last revised 2020. Blood 09/03/2024 10:3 3 AM DRAFTING INSTRUCTOR 09/03/2024 10:36 AM DRAFTING INSTRUCTOR Dandre Geronimo MD LAB BLOOD ORDERABLES Final R esult [facility] ([place]) 1 [facility] [place] [address] * (ABNORMAL) eGFR (09/03/2024 10:33 AM DRAFTING INSTRUCTOR) eGFR 32(L) >=60 mL/min/1. 73 m2 Comment: [...] reviewed 2021. Blood 09/03/2024 10:3 3 AM DRAFTING INSTRUCTOR 09/03/2024 10:36 AM DRAFTING INSTRUCTOR Dandre Geronimo MD LAB BLOOD ORDERABLES Final R esult [facility] ([place]) 1 [facility] [place] [address] * (ABNORMAL) Differential, auto (09/03/2024 10:33 AM DRAFTING INSTRUCTOR) Neutrophil abs 3.7 1.5 - 6.5 K/cumm [...] on 2017. Blood 09/03/2024 10:3 3 AM DRAFTING INSTRUCTOR 09/03/2024 10:36 AM DRAFTING INSTRUCTOR Dandre Geronimo MD LAB BLOOD ORDERABLES Final R esult [facility] ([place]) 1 [facility] Department [place] [address] * (ABNORMAL) CBC with auto differential (09/03/2024 10:33 AM DRAFTING INSTRUCTOR) WBC 4.6 3.8 - 9.9 K/cumm Hgb [...] [facility] ([place]) Blood 09/03/2024 10:3 3 AM DRAFTING INSTRUCTOR 09/03/2024 10:36 AM DRAFTING INSTRUCTOR Dandre Geronimo MD LAB BLOOD ORDERABLES Final R esult [facility] ([place]) 1 [facility] Department [place] [address] * (ABNORMAL) Comprehensive metabolic panel (09/03/2024 10:33 AM DRAFTING INSTRUCTOR) Pathologist [facility] Sodium 135 135 - 145 mmol/L Potassium, [...] [facility] ([place]) Blood 09/03/2024 10:3 3 AM DRAFTING INSTRUCTOR 09/03/2024 10:36 AM DRAFTING INSTRUCTOR us Dandre Geronimo MD LAB BLOOD ORDERABLES Final R esult [facility] ([place]) 1 [facility] Department [place] [address] * ECG 12 lead (09/03/2024 8:46 AM DRAFTING INSTRUCTOR) 09/03/2024 8:46 AM DRAFTING INSTRUCTOR Narrative [facility] - 09/03/2024 6:07 PM DRAFTING INSTRUCTOR Vent Rate: 60 bpm RR Interval: 1000 msec TN Interval: 163 msec QRS Duration: 145 msec QT Interval: 429 msec QTC Interval: 429 msec P-R-T [place]: 70 - 2 - 1 degrees IMPRESSION: SINUS RHYTHM INDETERMINATE AXIS RIGHT BUNDLE BRANCH BLOCK [120+ ms QRS DURATION, UPRIGHT V1, 40+ ms S IN I/aVL/V4/V5/V6] POSSIBLE ANTERIOR MYOCARDIAL INFARCTION , PROBABLY OLD [30 ms Q WAVE IN V3/V4, OR R < 0.2 mV IN V4] ABNORMAL ECG Electronically Signed By: Abad Sanford MD Dandre Geronimo MD ECG ORDERABLES Final Result [facility] * (ABNORMAL) Hemoglobin A1c (11/06/2021 8:28 PM CDT) Hgb A1C 6.8(H) 4.0 - 5.6 % ANGELIQUE Estimated Average Glucose 148 mg/dL ANGELIQUE Comment: The ADA recommends reporting an estimated Average Glucose (eAG) with all Hemoglobin A1c results using the equation derived from a study of 507 normal and diabetic adults. Minority populations were underrepresented and children were not included. (Diabetes Care 31:8211-0378, 2008). The eAG is not equivalent to a fasting glucose. Blood 11/06/2021 8:28 PM CDT 11/06/2021 8:45 PM CDT Bebeto Darden MD LAB BLOOD ORDERABLES Final Result ANGELIQUE [address] [facility] Department [place] [address] * (ABNORMAL) Lipid panel (07/29/2017 4:39 AM DRAFTING INSTRUCTOR) Cholesterol 182 40 - 199 mg/dL [facility] ([place]) Comment: Interpretive Data Desirable: Less than [...] 2014. Blood specimen (specimen) 07/29/2017 4:39 AM DRAFTING INSTRUCTOR 07/29/2017 5:11 AM DRAFTING INSTRUCTOR Narrative [facility] ([place]) - 07/29/2017 6:22 AM DRAFTING INSTRUCTOR Jr Thomas MD LAB BLOOD ORDERABLES Final Resul t [facility] ([place]) 1 [facility] Department [place] [address] from Last 3 Months or Most Recently Relevant to Health [place] [address] [facility] MEDICARE HMO [facility] OTHER Address: [address] [address] [place] [address] [facility] MEDICARE SOLUTIONS MEDICARE SOLUTIONS IDPA Advance Directives For more information, please contact: [phone] * Full Code (Latest Code Status on File) Date Activated Date Inactivated Comments 11/13/2021 11:09 PM 11/19/2021 8:47 PM * Full Code Date Activated Date Inactivated Comments 11/06/2021 8:16 PM 11/12/2021 8:24 PM * Full Code Date Activated Date Inactivated Comments 07/28/2017 7:26 AM 07/29/2017 5:48 PM Care Teams Metallography Teacher Relationship Specialty Start Date End Date No, Physician PCP - General 07/27/17
[2024-10-02 09:49] LABS: Hematocrit 36.4 % (37.0-47.0); Mean Corpuscular Hemoglobin 31.9 pg (26-34); Mean Corpuscular Volume 96.8 fl (80-100); Mean Platelet Volume 9.1 fl (7.4-10.4); Platelet Count Result 214 k/mm3 (150-375); Red Blood Count 3.76 M/mm3 (4.2-5.4); Red Cell Distribution Width 13.3 % (11.5-14.5); White Blood Count 5.4 K/mm3 (4.5-10.0)
[2024-10-02 10:01] LABS: Albumin Level 3.9 g/dL (3.5-5.1); Anion Gap 11 mmol/L (4-12); Blood Urea Nitrogen 39 mg/dL (7-17); Calcium 9.3 mg/dL (8.4-10.2); Carbon Dioxide 21 mmol/L (22-30); Chloride 106 mmol/L (98-107); Estimated Glomerular Filt Rate 34; Glucose 240 mg/dL (65-110); Phosphorus 4.4 mg/dL (2.5-4.5); Potassium 4.9 mmol/L (3.4-5.0); Sodium 138 mmol/L (137-145)
[2024-10-02 10:12] LABS: Parathyroid Intact 75.5 pg/mL (14.5-75.2)
[2024-10-02 10:15] LABS: Creatinine Urine 212.1 mg/dL; Total Protein Urine Random 36 mg/dL; Ur Ttl Prot Creatinine Ratio 0.17 mg/mg (0-0.20)
[2024-10-03 17:58] LABS: Red Blood Cell Folate 493 ng/mL RBC (>280)
[2024-10-06 03:23] LABS: Methylmalonic Acid 253 nmol/L (85-423)
== END 2024-10-02 09:05 | disposition home or self-care (01) ==
PROVIDERS: PCP Nurse Practitioner Adult Health; Referring Provider Psychiatry & Neurology Neurology; Visit Provider Internal Medicine Nephrology
DX: G30.9 Alzheimer's disease, unspecified (principal); F02.80 Dementia in other diseases classified elsewhere, unspecified severity, without behavioral disturbance, psychotic disturbance, mood disturbance, and anxiety; E03.9 Hypothyroidism, unspecified; E11.22 Type 2 diabetes mellitus with diabetic chronic kidney disease; N18.32 Chronic kidney disease, stage 3b; E11.29 Type 2 diabetes mellitus with other diabetic kidney complication; E83.52 Hypercalcemia
CPT/HCPCS: 36415; 80069; 82570; 82607; 82747; 83036; 83921; 83970; 84156; 84443; 85027

== ENCOUNTER 2024-11-12 09:57 | Outpatient (RCR) | payer MEDICARE, MEDICAID, SELFPAY | END 2025-02-05 07:51 | disposition home or self-care (01) | LOC: ANHDMC 09:57 | PROVIDERS: PCP Nurse Practitioner Adult Health; Visit Provider Nurse Practitioner Adult Health | DX: E11.29 Type 2 diabetes mellitus with other diabetic kidney complication (principal); Z71.89 Other specified counseling | CPT/HCPCS: G0108 ==

== ENCOUNTER 2024-12-10 12:59 | Emergency (ER) | payer MEDICARE, MEDICAID, SELFPAY ==
--- NOTE | ~2024-12-10 | XR_ITS ---
EXAMINATION: XR knee LT 3V, XR knee RT 3V DATE: 12/10/2024 14:29 INDICATION: Bilateral knee injury post fall TECHNIQUE: 1. Anteroposterior, 2 oblique, sunrise and crosstable lateral views of the right knee were obtained. 2. Anteroposterior, 2 oblique, sunrise and crosstable lateral views of the left knee were obtained. COMPARISON: None. FINDINGS: Right knee: Alignment is normal. No fracture. Tiny marginal osteophytes along the patella consistent with at angelina st minimal patellofemoral osteoarthritis. No joint effusion/layering lipohemarthrosis. Soft tissues a re unremarkable. Left knee: Alignment is normal. No fracture. Small enthesophyte at the proximal pole of the patella. No joint e ffusion/layering lipohemarthrosis. Soft tissues are unremarkable. IMPRESSION: 1. No or joint effusion or acute osseous abnormality at either knee. Reviewed, dictated and finalized at location A. IMPRESSION: 1. No or joint effusion or acute osseous abnormality at either knee.
--- OUTSIDE RECORDS SUMMARY | 2024-12-10 13:05 | XMS_ITS | Clinical Summary ---
Author Organization [facility] Address [address] [place] [address] Care Team Providers Care Nca Certified Concierge Name Role Phone Zena Soria NP Primary Care Provider [phone] Allergies No known active allergies Medications metFORMIN [...] within 12 hours or as directed by . 30 patch 2 Active Additional Information Patient not taking.Informant: Self, Reported on 01/05/2022 benzonatate (TESSALON) 100 mg capsuleIndicati ons:Cough Take 1 capsule (100 mg total) by mouth every 8 (eight) hours 21 capsule 5 Active Active Problems Problem Noted Date Diagnosed Date Cervical disc disorder with myelopathy of mid-cervical region 12/15/2021 Overview (12/15/2021): Added automatically from request for surgery [id number] Cervical radiculopathy due to intervertebral dis c disorder 12/15/2021 Overview (12/15/2021): Added automatically from request for surgery [id number] Glaucoma 11/13/2021 Benign essential HTN 11/06/2021 DELFINA [...] Encounters Date Type Department Care Team Description 10/16/2024 7:46 PM CDT - 10/16/2024 9:34 PM CDT Emergency [facility] Emergency Department [address] [place] [address] COVID-19 (Primary Dx) Discharge Disposition: Discharge to home [...] often do you attend chur ch or hoahaoism services? Never 11/16/2021 Do you belong to any clubs o r organizations such as cheondoism groups, unions, fraternal or athletic groups, or [...] making you feel afraid or unsafe? 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 Not on file Not on file Obstetrics History Last Filed Vital Signs Vital Sign Reading Time Taken Comments Blood Pressure 130/74 10/16/2024 9:04 PM CDT Pulse 68 10/16/2024 9:04 PM CDT Temperature 36 C (96.8 F) 10/16/2024 6:17 PM CDT Respiratory Rate 18 10/16/2024 9:04 PM CDT Oxygen Saturation 98% 10/16/2024 9:04 PM CDT Inhaled Oxygen Concentration - - Weight 76.7 kg (169 lb) 10/16/2024 7:52 PM CDT Height 162.6 cm (5' 4 ) 10/16/2024 7:52 PM CDT Body Mass Index 29.01 10/16/2024 7:52 PM CDT Plan of Treatment Health Maintenance [...] Fall Risk Assessment 01/05/2023 01/05/2022 Covid-19 Vaccine (4 - 2023-2 5 season) 2024 08/03/2021, 12/20/2020, 11/22/2020 Influenza Vaccine (#1) 2024 , 06/02/2020, 04/27/2019, Additional history exists eGFR 09/03/2025 09/03/2024, 12/23, 11/19/2021, Additional history exists DTaP/Tdap/Td Vaccine (2 - Td or Tdap) 04/07/2034 04/07/2024 Pneumococcal vaccine 65+ Completed 08/17/2019, 02/2019 Procedures Procedure Name Priority Date/Time Associated Diagnosis Comments XR CHEST PA LATERAL 2 VIEWS ED 10/16/2024 6:37 PM CDT INFLUENZA A/B, RSV, AND COVID-19 PCR STAT 10/16/2024 6:21 PM CDT EGFR STAT 09/03/2024 10:33 AM DIRECTOR OF RETAIL MARKETING HEMOGLOBIN A1C Routine 11/06/2021 8:28 PM CDT LIPID PANEL Routine 07/29/2017 4:39 AM DIRECTOR OF RETAIL MARKETING from Last 3 Months or Most Recently Relevant to Health Maintenance Results * XR Chest 2 views (10/16/2024 6:37 PM CDT) Anatomical Region Laterality Modality Body, Chest N/A Computed Radiogr aphy 10/16/2024 6:46 PM CDT Narrative 10/16/2024 6:47 PM CDT EXAM DESCRIPTION: XR CHEST PA LATERAL 2 VIEWS REASON FOR STUDY: pain Pt ambulatory to triage for flu like symptoms. Pt daughter states she took an at home COVID test and it was positive. Pt states cough since Tuesday. Former smoker TECHNIQUE: 2 radiographic view(s) of the chest. COMPARISON: Chest radiograph 11/17/2021 FINDINGS: LUNGS: Bibasilar atelectasis. No focal opacity, pleural effusion, or pneumothorax. HEART/MEDIASTINUM: Cardiac silhouette normal in size. Mediastinal and hilar contours appear normal. LINES/TUBES: None. BONES: No acute osseous abnormality. IMPRESSION: No acute cardiopulmonary abnormality. THIS IS AN ELECTRONICALLY VERIFIED FINAL REPORT 10/16/2024 6:47 PM - Electronically signed by Peggy Lamas M.D. FT: FT Report ID: [id number] Reading Location: [id number] Procedure Note Peggy Geiger MD - 10/16/2024 EXAM DESCRIPTION: XR CHEST PA LATERAL 2 VIEWS REASON FOR STUDY: pain Pt ambulatory to triage for flu like symptoms. Pt daughter states she tookan at home COVID test and it was positive. Pt states cough since Tuesday.Former smoker TECHNIQUE: 2 radiographic view(s) of the chest. COMPARISON: Chest radiograph 11/17/2021 FINDINGS: LUNGS: Bibasilar atelectasis. No focal opacity, pleural effusion, or pneumothorax. HEART/MEDIASTINUM: Cardiac silhouette normal in size. Mediastinal andhilar contours appear normal. LINES/TUBES: None. BONES: No acute osseous abnormality. IMPRESSION: No acute cardiopulmonary abnormality. THIS IS AN ELECTRONICALLY VERIFIED FINAL REPORT 10/16/2024 6:47 PM - Electronically signed by Peggy Lamas M.D. FT: FT Report ID: [id number] Reading Location: [id number] us Warren Rico MD IMG XR PROCEDURES Final Res ult * (ABNORMAL) Influenza A/B, RSV, and COVID-19 PCR Nasopharyngeal (10/16/2024 6:21 PM CDT) COVID-19 RNA Positive(A) Negative Influenza A RNA Negative Negative [facility] ([place]) Influenza B RNA Negative Negative [facility] ([place]) RSV RNA Negative Negative [facility] ([place]) Comment: Interpretive data: Testing performed by [facility]. This test is performed using the Accumulate Xpert Xpress CoV-2/Flu/RSV plus assay. This is a multiplex, real- time reverse transcriptase PCR assay intended for the qualitative detection of nucleic acid from SARS-CoV-2, influenza A, influenza B, and respiratory syncytial virus. This assay has been cleared by the [place] Food and Drug administration. The performance characteristics have been verified by the [facility]. Results must be considered in the clinical context, and a negative result does not rule out infection. Interpretive Data last revised 2023 Nasopharyngeal 10/16/2024 6: 21 PM CDT 10/16/2024 6:48 PM CDT Narrative [facility] ([place]) - 10/16/2024 7:28 PM CDT Is the Patient experiencing symptoms consistent with COVID?->Yes us Warren Rico MD LAB MICROBIOLOGY - GENERAL ORDERABLES Final Result [facility] ([place]) 1 [facility] Department [place] [address] * (ABNORMAL) eGFR (09/03/2024 10:33 AM DIRECTOR OF RETAIL MARKETING) eGFR 32(L) >=60 mL/min/1. 73 m2 Comment: [...] reviewed 2021. Blood 09/03/2024 10:3 3 AM DIRECTOR OF RETAIL MARKETING 09/03/2024 10:36 AM DIRECTOR OF RETAIL MARKETING Dandre Geronimo MD LAB BLOOD ORDERABLES Final R esult Performing Organization Address [facility] Co de Phone Number [facility]GELIQUE [facility] ([place]) 1 [facility] [place] [address] * (ABNORMAL) Hemoglobin A1c (11/06/2021 8:28 PM CDT) Hgb A1C 6.8(H) 4.0 - 5.6 % ANGELIQUE Estimated Average Glucose 148 mg/dL ANGELIQUE Comment: The ADA recommends reporting an estimated Average Glucose (eAG) with all Hemoglobin A1c results using the equation derived from a study of 507 normal and diabetic adults. Minority populations were underrepresented and children were not included. (Diabetes Care 31:4020-5330, 2007). The eAG is not equivalent to a fasting glucose. Blood 11/06/2021 8:28 PM CDT 11/06/2021 8:45 PM CDT Bebeto Darden MD LAB BLOOD ORDERABLES Final Result Performing Organization Address [facility] Co de Phone Number [facility] [address] [facility] [place] [address] * (ABNORMAL) Lipid panel (07/29/2017 4:39 AM DIRECTOR OF RETAIL MARKETING) Cholesterol 182 40 - 199 mg/dL [facility] ([place]) Comment: Interpretive Data Desirable: Less than 200 mg/dl Borderline High: 200 - 239 mg/dl High: Greater than 239 mg/dl Current interpretive data was last revised on 2014. Triglycerides 151.0(H) <=150.0 mg/dL [facility] ([place]) Comment: Interpretive Data Normal: Less than [...] 2014. Blood specimen (specimen) 07/29/2017 4:39 AM DIRECTOR OF RETAIL MARKETING 07/29/2017 5:11 AM DIRECTOR OF RETAIL MARKETING Narrative [facility] ([place]) - 07/29/2017 6:22 AM DIRECTOR OF RETAIL MARKETING Jr Thomas MD LAB BLOOD ORDERABLES Final Resul t [facility] ([place]) 1 [facility] [place] [address] from Last 3 Months or Most Recently Relevant to [place] [address] [place] [address] [employer] MEDICARE HMO IDPA [facility] MEDICARE ADVANTAGE [facility] MEDICARE ADVANTAGE IDPA Advance Directives For more information, please contact: [phone] * Full Code (Latest Code Status on File) Date Activated Date Inactivated Comments 11/13/2021 11:09 PM 11/19/2021 8:47 PM * Full Code Date Activated Date Inactivated Comments 11/06/2021 8:16 PM 11/12/2021 8:24 PM * Full Code Date Activated Date Inactivated Comments 07/28/2017 7:26 AM 07/29/2017 5:48 PM Care Teams Nca Certified Concierge Relationship Specialty Start Date End Date Zena Soria NP [address] [place] [id number] PCP - General Nurse Practitioner 10/16/24
--- OUTSIDE RECORDS SUMMARY | 2024-12-10 13:05 | XMS_ITS | Referral Summary ---
Author Organization [facility] lyssa Address [address] [place] [address] Care Team Providers Care Teachers Assistant Name Role Phone Yang Zena MG Primary Care Provider Encounters Date Type Department Care Team Description 10/16/2024 7:46 PM CDT - 10/16/2024 9:34 PM CDT Emergency [facility] Emergency Department [address] [place] [address] COVID-19 (Primary Dx) Discharge Disposition: Discharge to [...] (12/15/2021): Added automatically from request for surgery [id number] Cervical radiculopathy due to intervertebral dis c disorder 12/15/2021 Overview (12/15/2021): Added automatically from request for surgery [id number] Glaucoma 11/13/2021 Benign essential HTN 11/06/2021 DELFINA [...] often do you attend chur ch or yarsanism services? 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 FT: FT Report ID: [id number] Reading Location: [id number] Procedure Note Peggy Geiger MD - 10/16/2024 [...] Peggy Lamas M.D. FT: FT Report ID: [id number] Reading Location: [id number] Warren Rico MD IMG XR PROCEDURES Final Res ult * (ABNORMAL) Influenza A/B, RSV, and COVID-19 PCR Nasopharyngeal (10/16/2024 6:21 PM CDT) COVID-19 RNA Positive(A) Negative Influenza A RNA Negative Negative [facility] ([place]) Influenza B RNA Negative Negative [facility] ([place]) RSV RNA Negative Negative [facility] ([place]) Comment: Interpretive data: Testing performed by [facility]. This test is performed using the [employer] Xpert Xpress CoV-2/Flu/RSV plus assay. This is a multiplex, real- time reverse transcriptase PCR assay intended for the qualitative detection of nucleic acid from SARS-CoV-2, influenza A, influenza B, and respiratory syncytial virus. This assay has been cleared by the [place] Food and Drug administration. The performance characteristics have been verified by the [facility]. Results must be considered in the clinical context, and a negative result does not rule out infection. Interpretive Data last revised 2023 Nasopharyngeal 10/16/2024 6: 21 PM CDT 10/16/2024 6:48 PM CDT Narrative [facility] - 10/16/2024 7:28 PM CDT Is the Patient experiencing symptoms consistent with COVID?->Yes Warren Rico MD LAB MICROBIOLOGY - GENERAL ORDERABLES Final Result [facility] ([place]) 1 [facility] Department [place] [address] * (ABNORMAL) eGFR (09/03/2024 10:33 AM BRAND ANALYST) eGFR 32(L) >=60 mL/min/1. 73 m2 Comment: [...] reviewed 2021. Blood 09/03/2024 10:3 3 AM BRAND ANALYST 09/03/2024 10:36 AM BRAND ANALYST Dandre Geronimo MD LAB BLOOD ORDERABLES Final R esult Performing Organization Address City/[facility] Co de Phone Number [facility] [address] [facility] [place] [address] * (ABNORMAL) Hemoglobin A1c (11/06/2021 8:28 PM CDT) Hgb A1C 6.8(H) 4.0 - 5.6 % [facility]GEL[facility] Estimated Average Glucose 148 mg/dL ANGELIQUE Comment: The ADA recommends reporting an estimated Average Glucose (eAG) with all Hemoglobin A1c results using the equation derived from a study of 507 normal and diabetic adults. Minority populations were underrepresented and children were not included. (Diabetes Care 31:7644-2019, 2008). The eAG is not equivalent to a fasting glucose. Blood 11/06/2021 8:28 PM CDT 11/06/2021 8:45 PM CDT Bebeto Darden MD LAB BLOOD ORDERABLES Final Result [facility] [address] [facility] [place] [address] * (ABNORMAL) Lipid panel (07/29/2017 4:39 AM BRAND ANALYST) Cholesterol 182 40 - 199 mg/dL ANGELIQUE [facility] ([place]) Comment: Interpretive Data Desirable: Less than 200 [...] 2014. LDL, calculated 112 mg/dL [facility] ([place]) Comment: Interpretive Data Optimal Less than 100 [...] 2014. Blood specimen (specimen) 07/29/2017 4:39 AM BRAND ANALYST 07/29/2017 5:11 AM BRAND ANALYST Narrative [facility] ([place]) - 07/29/2017 6:22 AM BRAND ANALYST Lyssa Thomas MD LAB BLOOD ORDERABLES Final Resul t [facility]) 1 [facility] Department [place] [address] from Last 3 Months or Most Recently Relevant to Health Maintenance Insurance [employer] MEDICARE HMO IDPA [facility] MEDICARE ADVANTAGE [facility] MED[facility] ADV[facility]AGE IDPA Advance Directives For more information, please contact: [phone] * Full Code (Latest Code Status on File) Date Activated Date Inactivated Comments 11/13/2021 11:09 PM 11/19/2021 8:47 PM * Full Code Date Activated Date Inactivated Comments 11/06/2021 8:16 PM 11/12/2021 8:24 PM * Full Code Date Activated Date Inactivated Comments 07/28/2017 7:26 AM 07/29/2017 5:48 PM Care Teams Teachers Assistant Relationship Specialty Start Date End Date Zena Soria NP [address] [place] [address] PCP - General Nurse Practitioner 10/16/24
--- OUTSIDE RECORDS SUMMARY | 2024-12-10 13:05 | XMS_ITS | Continuity of Care Document ---
Author Organization [facility] Address [address] [place] [address] Phone Care Team Providers Care Chef German Name Role Phone Jude Fernandez MD Unavailable [...] OFFICE/OUTPAT IENT VISIT EST [facility], [address], [address], tel:[phone] [facility] [place] Fracture of metatarsal bone(s), closed 0- 5 Rebecca Roque. [address] [place], [place], [id number] . tel: [phone] [facility], [address], [place], [address], [place] tel:[phone] [facility] [place] Fracture of metatarsal bone(s), closed 0-201 5 Bagwe Jude. [address] , [place], [place], [id number] . tel: [phone] OFFICE/OUTPAT IENT VISIT EST [facility], [address], [place], [address], [place] tel:[phone] [facility] [place] Fracture of metatarsal bone(s), closed Oct- 5 Bagmarcio Roque. [address], [place], [place], [id number] . tel: [phone] OFFICE CONSULTATION [facility], [address], [place], [address], [place] tel:[phone] [facility] [place] OverweightFractu re of metatarsal bone(s), closedMorton's neuroma Oct- 5 Rebecca Roque. [address], [place], [place], [id number] . tel: [phone] Referring Provider: Emily Lantigua [facility] [address], [place], [address]. tel:[phone] Family History Family Member Type Diagnosis Age At Onset Father Problem (finding) Father Problem (finding) Cancer, unknown (Cause Of ) Payers Payer name Insurance type Covered green party ID Authoriza tion(s) No Information Social [...]
--- OUTSIDE RECORDS SUMMARY | 2024-12-10 13:05 | XMS_ITS | Clinical Summary ---
Author Organization [facility] Address [address] [place] [address] Phone Care Team Providers Care Bonding And Composite Fabricator Name Role Phone Sanchez Tavares Primary Care Provider [phone] Social History Tobacco Use Types Packs/Day Years Used Date Smoking Tobacco: Never Assessed Comments Unknown Sex and Gender Information Value Date Recorded Sex Assigned at Not on file Legal Sex Female 9:34 PM CDT Gender Identity Not on file Sexual Orientation Not on file Plan of Treatment Health Maintenance Due Date Last Done Comments Hepatitis C Virus (HCV) Screening 1945 TdaP [...] topic Insurance MEDICARE C [employer] Care Teams Bonding And Composite Fabricator Relationship Specialty Start Date End Date Sanchez Tavares PAC [address] [place] [address] PCP - General Physician Admissions Manager 02/24/22
--- OUTSIDE RECORDS SUMMARY | 2024-12-10 13:05 | XMS_ITS | Continuity of Care Document ---
Author Organization [facility] Address [address] [place] [address] [address] [place] [address] Phone Care Team Providers Care Ice Cream Freezer Helper Name Role Phone Kaylen Dominguez Unavailable Unavailable Procedures Procedure Date Eye Exam, New Patient Advance Directives Directive Yes / No Effective Date File Name No Information Encounters Encounter Description Practice Location Reason(s) For Visit Diagnoses Date Provider Providers Copied on Encounter [facility], [id number] [place] [address] [address], [place], [place], [id number], [place] tel:[phone] [facility] No Information [address] Angelica Abdullahi. [address] , [address], [place], [address], [place]. tel:[phone] Family History Family Member Type Diagnosis Age At Onset No Information Payers Payer name Insurance type Covered republican ID Authoriza tielizabeth(s) [facility] Commercial CI [id number] Social History Type Description Quantity Date Captured [...]
[2024-12-10 13:10] VITALS: BP 114/42; PULSE 56; RESP 20; TEMP 36.3; O2SAT 98
--- OUTSIDE RECORDS SUMMARY | 2024-12-10 13:11 | XMS_ITS | Continuity of Care Document ---
Author Organization [facility] Address [address] [place] [address] Phone Care Team Providers Care Forestry Workers Name Role Phone Jude Fernandez MD Unavailable [...] OFFICE/OUTPAT IENT VISIT EST [facility], [address], [address], tel:[phone] [facility] [place] Fracture of metatarsal bone(s), closed 0- 5 Rebecca Roque. [address] [place], [place], [address] . tel: [phone] [facility], [address], [place], [address], [place] tel:[phone] [facility] [place] Fracture of metatarsal bone(s), closed 0-201 5 Bagwe Jude. [address] , [place], [place], [address] . tel: [phone] OFFICE/OUTPAT IENT VISIT EST [facility], [address], [place], [address], [place] tel:[phone] [facility] [place] Fracture of metatarsal bone(s), closed Oct- 5 B[address]arcio Roque. [address], [place], [place], [address] . tel: [phone] OFFICE CONSULTATION [facility], [address], [place], [address], [place] tel:[phone] [facility] [place] OverweightFractu re of metatarsal bone(s), closedMorton's neuroma Oct- 5 Rebecca Roque. [address], [place], [place], [address] . tel: [phone] Referring Provider: Emily Lantigua [facility] [address], [place], [address]. tel:[phone] Family History Family Member Type Diagnosis Age [...]
--- OUTSIDE RECORDS SUMMARY | 2024-12-10 13:11 | XMS_ITS | Continuity of Care Document ---
Author Organization [facility] Address [address] [place] [address] [address] [place] [address] Phone Care Team Providers Care Turbine Attendant Name Role Phone Kaylen Dominguez Unavailable Unavailable Procedures Procedure Date Eye Exam, New Patient Advance Directives Directive Yes / No Effective Date File Name No Information Encounters Encounter Description Practice Location Reason(s) For Visit Diagnoses Date Provider Providers Copied on Encounter [facility], [address] [place] [address] [address], [place], [place], [id number], [place] tel:[phone] [facility] No Information [address] Angel[address] Abdullahi. [address] , [address], [place], [address], [place]. tel:[phone] Family History Family Member Type Diagnosis Age At Onset No Information Payers Payer name Insurance type Covered constitution party ID Authoriza tielizabeth(s) [facility] Commercial CI [id number] Social History Type Description Quantity Date Captured [...]
--- NOTE | 2024-12-10 13:24 | ED.FALL ---
HPI - Fall General Chief Complaint: Fall Stated Complaint: Fall /Injury to Both Knee/Left Arm Time Seen by Provider: 12/10/24 13:34 Source: patient Mode of arrival: ambulatory Limitations: no limitations History of Present Illness HPI Narrative: 79-year-old female presents with concern for bilateral knee pain. Reports yesterday she tripped and fell onto her knee patio. She reports she took Tylenol yesterday. Reports her knees are achy but she has a lot of pain when she tries to stand. Reports tenderness of bilateral anterior knees. She reports it is difficult to stand due to pain. She denies any open skin redness,. Reports history of arthritis both knees. complaint: fall Related Data Home Medications Medication Instructions Recorded Confirmed Last Taken Type amlodipine 5 mg tablet 5 mg PO DAILY 10/08/24 10/24/24 Unknown History escitalopram oxalate 5 mg tablet 5 mg PO DAILY 10/08/24 10/24/24 Unknown History (Lexapro) Allergies Allergy/AdvReac Type Severity Reaction Status Date / Time fenofibrate Allergy Unknown Unknown Verified 12/10/24 13:15 levocetirizine Allergy Unknown Unknown Verified 12/10/24 13:15 Review of Systems Review of Systems: CONSTITUTIONAL: Denies malaise, chills, sweats, or fever. CARDIOVASCULAR: Denies chest pain RESPIRATORY: Denies cough or dyspnea. SKIN: Denies rash or itching. Denies open skin MUSCULOSKELETAL: Reports bilateral knee pain NEUROLOGIC: Denies numbness, weakness All systems reviewed & are unremarkable except as noted in HPI and below PMFSH Past Medical History Medical History Dementia of the Alzheimer's type Memory loss Fracture of radial head, right, closed Hypothyroidism, unspecified Type 2 diabetes mellitus with other diabetic kidney complication Chronic kidney disease, stage 3 (moderate) Hypertensive chronic kidney disease with stage 1 through stage 4 chronic kidney disease, or unspecified chronic kidney disease Retinal hemorrhage, right eye Surgical History Surgical History History of appendectomy Family History Family History Mother Family history of Alzheimer's disease Father Family history of lung cancer Other Diabetes mellitus High cholesterol Liver cancer Malignant neoplasm of prostate Social History Social History Smoking packs per day: 0.5 Smoking cigarettes per day: 10.0 Smoking status: Former smoker Tobacco type: cigarettes Smoking end date: 07/25/94 Alcohol intake: former Substance use: never Substance use type: does not use Do You Feel Safe in your Home?: Yes Lack of Transportation: No Lack of Food: Never True Current Housing: I Have Housing Concerned About Future Housing: No Difficulty Paying Gas/Electric Bills: No Difficulty Paying for Meds: No Currently Unemployed: No Education: High School Diploma/GED Difficulty w/ Childcare or Family Care: No Living arrangements: with family Occupation/Education: retired Gender identity (if verbalized by the patient): Female Comments At time of signature, agree with nursing past medical, surgical, social and family history. There is no relevant family history pertinent to the presenting complaint Exam Narrative: GENERAL: Well-appearing, well-nourished, and in no acute distress. HEAD: Normocephalic, atraumatic. EYES: PERRLA, conjunctivae clear NECK: Supple. CHEST: Speaks in full sentences. No respiratory distress. HEART: Regular rate and rhythm. Normal and equal peripheral pulses. EXTREMITIES: Bilateral knees have grossly normal strength and sensation, normal range of motion. No edema or ecchymosis. Normal sensation with sensitivity to light touch and pain. Bilateral anterior tenderness. No open wounds, no skin tenting, no devitalized tissue or atrophy, no trophic changes, no obvious deformity, alignment normal, nearby joints and structures intact. Distal pulses palpable and equal bilaterally, skin warm, dry, pink. Capillary refill less than 3 seconds. SKIN: Warm, dry, no rash. NEURO: Alert and oriented x3. PSYCH: Normal mood and affect Course Course Emergency Course: Patient is aware of diagnosis, understands and agrees to treatment plan. Anticipatory guidance given. Patient agrees to follow-up as directed and is aware of reasons to seek care at the emergency department. Portions of this record may have been created with voice recognition software Level of Care: Express Care Visit Vital Signs Vital signs: Vital Signs Temperature 97.3 F L 12/10/24 13:10 Pulse Rate 56 L 12/10/24 13:10 Respiratory Rate 20 12/10/24 13:10 Blood Pressure 114/42 L 12/10/24 13:10 Pulse Oximetry 98 12/10/24 13:10 Oxygen Delivery Room Air 12/10/24 13:10 Temperature 97.3 F L 12/10/24 13:10 Pulse Rate 56 L 12/10/24 13:10 Respiratory Rate 20 12/10/24 13:10 Blood Pressure 114/42 L 12/10/24 13:10 Pulse Oximetry 98 12/10/24 13:10 Oxygen Delivery Room Air 12/10/24 13:10 Reviewed. MDM - Fall MDM Narrative Medical decision making narrative: Patients injury and pain is consistent with musculoskeletal etiology. No signs of neurological or vascular compromise on exam. Compartments and tissues are soft without signs of compartment syndrome. Pain is felt appropriate for further evaluation on an outpatient basis. Critical Care Time Critical Care Time Critical Care Time: No Discharge Plan Discharge Clinical Impression: Bilateral knee pain Patient Disposition: Home Condition: Stable Instructions: Knee Pain (ED) Additional Instructions: Avoid activities that cause pain until the pain subsides. Ice to the area 20-30 minutes 4-6 times a day Elevate above heart Tylenol for pain Follow up with your primary care provider if the condition is not improving within 1 week. If the condition worsens with numbness, tingling, decrease sensation with weakness seek treatment in the emergency room immediately. Patient Language: Polish Prescriptions: New prednisone 20 mg tablet 40 mg PO DAILY 5 Days Qty: 10 0RF No Action donepezil 10 mg tablet See Rx Instructions .ROUTE .COMPLEX Qty: 90 3RF Dose Instruction: TAKE 1 TABLET BY MOUTH ONCE DAILY AT BEDTIME Rx Instructions: TAKE 1 TABLET BY MOUTH ONCE DAILY AT BEDTIME memantine 10 mg tablet See Rx Instructions .ROUTE .COMPLEX Qty: 180 2RF Dose Instruction: Take 1 tablet by mouth twice daily Rx Instructions: Take 1 tablet by mouth twice daily escitalopram oxalate 10 mg tablet See Rx Instructions .ROUTE .COMPLEX Qty: 90 1RF Dose Instruction: TAKE 1/2 (ONE-HALF) TABLET BY MOUTH AT BEDTIME FOR 7 DAYS THEN 1 ONCE DAILY Rx Instructions: take 10 mg of escitalopram along with 5 mg total 15 mg a day Lumigan 0.01 % drops 1 drp EACH EYE DAILY Qty: 7.5 1RF (DME) OneTouch Verio test strips Strip See Rx Instructions .Route Qty: 100 6RF Rx Instructions: check blood sugars 1xday timolol maleate 0.5 % drops 1 drp EACH EYE BID Qty: 15 3RF (DME) blood-glucose meter [OneTouch Verio Flex meter] Misc See Rx Instructions .Route Qty: 1 1RF Rx Instructions: check blood sugars 1xday (DME) lancets Misc See Rx Instructions .Route Qty: 200 1RF Rx Instructions: check blood sugars 1xday levothyroxine 25 mcg tablet See Rx Instructions .ROUTE .COMPLEX Qty: 90 3RF Dose Instruction: Take 1 tablet by mouth once daily Rx Instructions: Take 1 tablet by mouth once daily Jardiance 10 mg tablet 10 mg PO DAILY Qty: 90 0RF amlodipine 5 mg tablet 5 mg PO DAILY escitalopram oxalate [Lexapro] 5 mg tablet 5 mg PO DAILY pioglitazone 15 mg tablet See Rx Instructions .ROUTE .COMPLEX Qty: 90 0RF Dose Instruction: Take 1 tablet by mouth once daily Rx Instructions: Take 1 tablet by mouth once daily Follow-up/Referrals: Zena Soria APRN [Primary Care Provider] - Time of Disposition: 15:04
== END 2024-12-10 15:08 | disposition home or self-care (01) ==
PROVIDERS: Emergency Provider Nurse Practitioner; PCP Nurse Practitioner Adult Health
DX: M25.561 Pain in right knee (principal); M25.562 Pain in left knee; Z87.891 Personal history of nicotine dependence; I12.9 Hypertensive chronic kidney disease with stage 1 through stage 4 chronic kidney disease, or unspecified chronic kidney disease; E11.22 Type 2 diabetes mellitus with diabetic chronic kidney disease; N18.30 Chronic kidney disease, stage 3 unspecified; Z79.84 Long term (current) use of oral hypoglycemic drugs; G30.9 Alzheimer's disease, unspecified; F02.80 Dementia in other diseases classified elsewhere, unspecified severity, without behavioral disturbance, psychotic disturbance, mood disturbance, and anxiety; E03.9 Hypothyroidism, unspecified
CPT/HCPCS: 73562; 99214; G0463

== ENCOUNTER 2025-02-21 14:29 | Outpatient (CLI) | payer MEDICARE, MEDICAID, SELFPAY ==
--- OUTSIDE RECORDS SUMMARY | 2025-02-21 15:08 | XMS_ITS | Clinical Summary ---
Author Organization [facility] Address [address] [place] [address] Care Team Providers Care Acid Cutter Name Role Phone Zena Soria NP Primary Care Provider [phone] Allergies No known active allergies Medications metFORMIN [...] (12/15/2021): Added automatically from request for surgery [id number] Cervical radiculopathy due to intervertebral dis c disorder 12/15/2021 Overview (12/15/2021): Added automatically from request for surgery [id number] Glaucoma 11/13/2021 Benign essential HTN 11/06/2021 DELFINA [...] often do you attend chur ch or voodoo services? 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 [employer] Not on file Not on file Not [...] 7:52 PM CDT Height 162.6 cm (5' 4) 10/16/2024 7:52 PM CDT Body Mass Index [...] Fall Risk Assessment 01/05/2023 01/05/2022 Covid-19 Vaccine (2023-2 5 season) 2024 08/03/2021, 12/20/2020, 11/22/2020 Influenza Vaccine (#1) 2025 , 06/02/2020, 04/27/2019, Additional history exists eGFR 09/03/2025 09/03/2024, 12/23, 11/19/2021, Additional history exists DTaP/Tdap/Td Vaccine (2 - Td or Tdap) 04/07/2034 04/07/2024 Pneumococcal vaccine 65+ Completed 08/17/2019, 02/2019 Procedures Procedure Name Priority Date/Time Associated Diagnosis Comments EGFR STAT 09/03/2024 10:33 AM CONTACT LENS FITTER HEMOGLOBIN A1C Routine 11/06/2021 8:28 PM CDT LIPID PANEL Routine 07/29/2017 4:39 AM CONTACT LENS FITTER from Last 3 Months or Most Recently Relevant to Health Maintenance Results * (ABNORMAL) eGFR (09/03/2024 10:33 AM CONTACT LENS FITTER) eGFR 32(L) >=60 mL/min/1. 73 m2 Comment: [...] reviewed 2021. Blood 09/03/2024 10:3 3 AM CONTACT LENS FITTER 09/03/2024 10:36 AM CONTACT LENS FITTER us Dandre Geronimo MD LAB BLOOD ORDERABLES Final R esult CERCHARLETTE PINEDA ([place]) [address] Department [place] [address] * (ABNORMAL) Hemoglobin A1c (11/06/2021 8:28 PM CDT) Hgb A1C 6.8(H) 4.0 - 5.6 % ANGELIQUE Estimated Average Glucose 148 mg/dL ANGELIQUE Comment: The ADA recommends reporting an estimated Average Glucose (eAG) with all Hemoglobin A1c results using the equation derived from a study of 507 normal and diabetic adults. Minority populations were underrepresented and children were not included. (Diabetes Care 31:1841-9389, 2008). The eAG is not equivalent to a fasting glucose. Blood 11/06/2021 8:28 PM CDT 11/06/2021 8:45 PM CDT Bebeto Darden MD LAB BLOOD ORDERABLES Final Result ANGELIQUE [address] [facility] Department [place] [address] * (ABNORMAL) Lipid panel (07/29/2017 4:39 AM CONTACT LENS FITTER) Cholesterol 182 40 - 199 mg/dL ANGELIQUE [...] 2014. Blood specimen (specimen) 07/29/2017 4:39 AM CONTACT LENS FITTER 07/29/2017 5:11 AM CONTACT LENS FITTER Narrative ANGELIQUE PINEDA ([place]) - 07/29/2017 6:22 AM CONTACT LENS FITTER Jr Thomas MD LAB BLOOD ORDERABLES Final Resul t ANGELIQUE PINEDA ([place]) [address] [facility] Department [place] [address] from Last 3 Months or Most Recently Relevant to Health Maintenance Insurance [employer] MEDICARE HMO [employer] [facility] MEDICARE ADVANTAGE [facility] MEDICARE ADVANTAGE [place] Advance Directives For more information, please contact: [phone] * Full Code (Latest Code Status on File) Date Activated Date Inactivated Comments 11/13/2021 11:09 PM 11/19/2021 8:47 PM * Full Code Date Activated Date Inactivated Comments 11/06/2021 8:16 PM 11/12/2021 8:24 PM * Full Code Date Activated Date Inactivated Comments 07/28/2017 7:26 AM 07/29/2017 5:48 PM Care Teams Acid Cutter Relationship Specialty Start Date End Date Zena Soria NP [address] [place] [address] PCP - General Nurse Practitioner 10/16/24
--- OUTSIDE RECORDS SUMMARY | 2025-02-21 15:08 | XMS_ITS | Referral Summary ---
Author Organization [facility] Address [address] [place] [address] Care Team Providers Care Aircraft Sheet Metal Mechanic Name Role Phone Zena Sorai NP Primary Care Provider [phone] Allergies No known active allergies Medications metFORMIN [...] (12/15/2021): Added automatically from request for surgery [id number] Cervical radiculopathy due to intervertebral dis c disorder 12/15/2021 Overview (12/15/2021): Added automatically from request for surgery [id number] Glaucoma 11/13/2021 Benign essential HTN 11/06/2021 DELFINA [...] often do you attend chur ch or caodaism services? Never 11/16/2021 Do you belong to any clubs o r organizations such as rastafari groups, unions, fraternal or athletic groups, or [...] on file Legal Sex Female 12:25 PM AUTOMOBILES SALESPERSON Gender Identity Not on file Sexual Orientation Not on file Occupation Industry Job Start Date Job End Date [employer] department in [employer] Not on file Not on file Not [...] Diagnosis Comments EGFR STAT 09/03/2024 10:33 AM AUTOMOBILES SALESPERSON HEMOGLOBIN A1C Routine 11/06/2021 8:28 PM CDT LIPID PANEL Routine 07/29/2017 4:39 AM AUTOMOBILES SALESPERSON from Last 3 Months or Most Recently Relevant to Health Maintenance Results * (ABNORMAL) eGFR (09/03/2024 10:33 AM AUTOMOBILES SALESPERSON) eGFR 32(L) >=60 mL/min/1. 73 m2 Comment: [...] reviewed 2021. Blood 09/03/2024 10:3 3 AM AUTOMOBILES SALESPERSON 09/03/2024 10:36 AM AUTOMOBILES SALESPERSON Dandre Geronimo MD LAB BLOOD ORDERABLES Final R esult Performing Organization Address [facility] Co de Phone Number [facility] [address] [place] [address] * (ABNORMAL) Hemoglobin A1c (11/06/2021 8:28 PM CDT) Hgb A1C 6.8(H) 4.0 - 5.6 % ANGELIQUE Estimated Average Glucose 148 mg/dL ANGELIQUE Comment: The ADA recommends reporting an estimated Average Glucose (eAG) with all Hemoglobin A1c results using the equation derived from a study of 507 normal and diabetic adults. Minority populations were underrepresented and children were not included. (Diabetes Care 31:8883-1073, 2007). The eAG is not equivalent to a fasting glucose. Blood 11/06/2021 8:28 PM CDT 11/06/2021 8:45 PM CDT Bebeto Darden MD LAB BLOOD ORDERABLES Final Result Performing Organization Address [facility] Co de Phone Number [facility] [facility] [address] [place] [address] * (ABNORMAL) Lipid panel (07/29/2017 4:39 AM AUTOMOBILES SALESPERSON) Cholesterol 182 40 - 199 mg/dL ANGELIQUE [facility] ([place]) Comment: Interpretive Data Desirable: Less than 200 mg/dl Borderline High: 200 - 239 mg/dl High: Greater than 239 mg/dl Current interpretive data was last revised on 2014. Triglycerides 151.0(H) <=150.0 mg/dL ANGELIQUE [facility] ([place]) Comment: Interpretive Data Normal: Less than [...] 2014. Blood specimen (specimen) 07/29/2017 4:39 AM AUTOMOBILES SALESPERSON 07/29/2017 5:11 AM AUTOMOBILES SALESPERSON Narrative ANGELIQUE PINEDA ([place]) - 07/29/2017 6:22 AM AUTOMOBILES SALESPERSON Jr Thomas MD LAB BLOOD ORDERABLES Final Resul t ANGELIQUE PINEDA ([place]) [address] [facility] [place] [address] from Last 3 Months or Most Recently Relevant to Health Maintenance [place] [address] [employer] MEDICARE HMO [employer] [facility] MEDICARE ADVANTAGE [facility] MEDICARE ADVANTAGE [place] Advance Directives For more information, please contact: [phone] * Full Code (Latest Code Status on File) Date Activated Date Inactivated Comments 11/13/2021 11:09 PM 11/19/2021 8:47 PM * Full Code Date Activated Date Inactivated Comments 11/06/2021 8:16 PM 11/12/2021 8:24 PM * Full Code Date Activated Date Inactivated Comments 07/28/2017 7:26 AM 07/29/2017 5:48 PM Care Teams Aircraft Sheet Metal Mechanic Relationship Specialty Start Date End Date Zena Soria NP [address] [place] [id number] PCP - General Nurse Practitioner 10/16/24
--- OUTSIDE RECORDS SUMMARY | 2025-02-21 15:08 | XMS_ITS | Continuity of Care Document ---
Author Organization [facility] Address [address] [place] [address] [address] [place] [address] Phone Care Team Providers Care Supply Coordinator Name Role Phone Kaylen Dominguez Unavailable Unavailable Procedures Procedure Date Eye Exam, New Patient Advance Directives Directive Yes / No Effective Date File Name No Information Encounters Encounter Description Practice Location Reason(s) For Visit Diagnoses Date Provider Providers Copied on Encounter [facility], [id number] [place] [address] [address], [place], [place], [id number], [place] tel:[phone] [facility] No Information [address] Abdullahi. [address] , [address], [place], [address], [place]. tel:[phone] Family History Family Member Type Diagnosis Age At Onset No Information Payers Payer name Insurance type Covered democrat ID Authoriza tielizabeth(s) [facility] Commercial CI [id number] Social History Type Description Quantity Date Captured [...]
--- OUTSIDE RECORDS SUMMARY | 2025-02-21 15:08 | XMS_ITS | Clinical Summary ---
Author Organization [facility] Address [address] [place] [address] Phone Care Team Providers Care Voice Professor Name Role Phone Sanchez Tavares Primary Care Provider Social History Tobacco Use Types Packs/Day Years [...] (Adult) (1 - 1-dose 75+ series) 01/02/2019 SARS-COV-2 Immunization ( season) 2024 03/24/2022, 08/03/2021, 12/20/2020, Additional history exists Influenza Immunization (#1) 03/25/202504/25, 06/02/2020, 04/27/2019, Additional history exists Pneumococcal Immunization (50+ years) Completed 08/17/2019, 08/01/2018 Hepatitis B Immunization Aged Out No longer eligible based on patient's age to complete this topic Human Papillomavirus (HPV) Immunization Aged Out No longer eligible based on patient's age to complete this topic Meningococcal Immunization (ACWY) Aged Out No longer eligible based on patient's age to complete this topic Rotavirus Immunization Aged Out No lo nger eligible based on patient's age to complete this topic Insurance MEDICARE C [employer] Care Teams Voice Professor Relationship Specialty Start Date End Date Sanchez Tavares, PAC [address] [place] [address] PCP - General Physician Salesperson [employer] 02/24/22
--- OUTSIDE RECORDS SUMMARY | 2025-02-21 15:08 | XMS_ITS | Continuity of Care Document ---
Author Organization [facility] Address [address] [place] [address] Phone Care Team Providers Care Spray Cementer Name Role Phone Jude Fernandez MD Unavailable [...] OFFICE/OUTPAT IENT VISIT EST [facility], [address], [address], tel:[phone] [facility] [place] Fracture of metatarsal bone(s), closed 0- 5 Rebecca Roque. [address] [place], [place], [address] . tel: [phone] [facility], [address], [place], [address], [place] tel:[phone] [facility] [place] Fracture of metatarsal bone(s), closed 0-201 5 Bagwe Jude. [address] , [place], [place], [id number] . tel: [phone] OFFICE/OUTPAT IENT VISIT EST [facility], [address], [place], [address], [place] tel:[phone] [facility] [place] Fracture of metatarsal bone(s), closed Oct- 5 Bagmarcio Roque. [address], [place], [place], [address] . tel: [phone] OFFICE CONSULTATION [facility], [address], [place], [address], [place] tel:[phone] [facility] [place] OverweightFractu re of metatarsal bone(s), closedMorton's neuroma Oct- 5 Rebecca Roque. [address], [place], [place], [address] . tel: [phone] Referring Provider: Emily Lantigua [facility] [address], [place], [address]. tel:[phone] Family History Family Member Type Diagnosis Age At Onset Father Problem (finding) Father Problem (finding) Cancer, unknown (Cause Of ) Payers Payer name Insurance type Covered constitution party ID Authoriza tion(s) No Information Social [...]
[2025-02-21 18:57] LABS: Add Urine Microscopic? NO; Appearance Urine Clear (Clear); Glucose Urine UA 3+ mg/dL (Negative); Leukocyte Esterase Ur Negative LEU/UL (Negative); Nitrate Urine Negative (Negative); Specific Grav Ur 1.010 (1.001-1.035)
== END 2025-02-21 14:30 | disposition home or self-care (01) ==
LOC: ANHBWCLAB 15:06
PROVIDERS: PCP Nurse Practitioner Adult Health; Visit Provider Nurse Practitioner Adult Health
DX: R39.9 Unspecified symptoms and signs involving the genitourinary system (principal)
CPT/HCPCS: 81003; 87086

== ENCOUNTER 2025-04-08 12:03 | Outpatient (CLI) | payer MEDICARE, MEDICAID, SELFPAY ==
[2025-04-08 12:45] LABS: Hematocrit 40.8 % (37.0-47.0); Hemoglobin 13.3 g/dL (12.0-15.0); Mean Corpuscular HGB Conc 32.6 g/dl (32-36); Mean Corpuscular Hemoglobin 30.5 pg (26-34); Mean Corpuscular Volume 93.6 fl (80-100); Platelet Count Result 198 k/mm3 (150-375); Red Blood Count 4.36 M/mm3 (4.2-5.4); White Blood Count 5.6 K/mm3 (4.5-10.0)
[2025-04-08 13:05] LABS: Total Protein Urine Random 20 mg/dL; Ur Ttl Prot Creatinine Ratio 0.47 mg/mg (0-0.20)
[2025-04-08 13:11] LABS: Albumin Level 4.0 g/dL (3.5-5.1); Anion Gap 9 mmol/L (4-12); Blood Urea Nitrogen 45 mg/dL (7-17); Calcium 8.9 mg/dL (8.4-10.2); Carbon Dioxide 18 mmol/L (22-30); Chloride 106 mmol/L (98-107); Estimated Glomerular Filt Rate 37; Glucose 250 mg/dL (65-110); Hemoglobin A1C 8.3 % (<5.7); Potassium 4.2 mmol/L (3.4-5.0); Sodium 133 mmol/L (137-145)
[2025-04-08 13:21] LABS: Parathyroid Intact 59.6 pg/mL (14.5-75.2)
[2025-04-08 13:37] LABS: Thyroid Stimulating Hormone 3.350 uIU/mL (0.465-4.680)
--- OUTSIDE RECORDS SUMMARY | 2025-04-08 14:10 | XMS_ITS | Clinical Summary ---
Author Organization [facility] Address [address] [place] [address] Phone Care Team Providers Care Facility Maintenance Worker Name Role Phone Sanchez Tavares Primary Care Provider [phone] Social History Tobacco Use Types Packs/Day Years [...] 1-dose 75+ series) 01/02/2019 Influenza Immunization (#1) 03/25/202504/25, 06/02/2020, 04/27/2019, Additional history exists SARS-COV-2 Immunization (2024- season) 2025 03/24/2022, 08/03/2021, 12/20/2020, Additional history exists Pneumococcal [...] topic Insurance MEDICARE C [employer] Care Teams Facility Maintenance Worker Relationship Specialty Start Date End Date Sanchez Tavares, PAC [address] [place] [address] PCP - General Physician Membership Coordinator 02/24/22
--- OUTSIDE RECORDS SUMMARY | 2025-04-08 14:10 | XMS_ITS | Clinical Summary ---
Author Organization [facility] Address [address] [place] [address] Care Team Providers Care Bottle Line Worker Name Role Phone Zena Soria NP Primary Care Provider [phone] Allergies No known active allergies Medications metFORMIN [...] (12/15/2021): Added automatically from request for surgery [id number] Cervical radiculopathy due to intervertebral dis c disorder 12/15/2021 Overview (12/15/2021): Added automatically from request for surgery [id number] Glaucoma 11/13/2021 Benign essential HTN 11/06/2021 DELFINA [...] 11/13/2021 Allergic rhinitis Type 2 diabetes mellitus use met formin History of blood product transfusion years ago [...] e alcohol) Social Connection and Isolation Panel Answer Date Recorded In a typical week, how many times do you talk on the phone with family, friends, or neighbors? Three times a week 11/16/2021 How often do you get togethe r with friends or relatives? Three times a week 11/16/2021 How often do you attend chur ch or confucianism services? 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 [employer] Not on file Not on file Not [...] Fall Risk Assessment 01/05/2023 01/05/2022 Covid-19 Vaccine (2024-2 6 season) 2025 08/03/2021, 12/20/2020, 11/22/2020 Influenza Vaccine (#1) 2025 , 06/02/2020, 04/27/2019, Additional history exists eGFR 09/03/2025 09/03/2024, 12/23, 11/19/2021, Additional history exists DTaP/Tdap/Td Vaccine (2 - Td or Tdap) 04/07/2034 04/07/2024 Pneumococcal vaccine 65+ Completed 08/17/2019, 02/2019 Procedures Procedure Name Priority Date/Time Associated Diagnosis Comments EGFR STAT 09/03/2024 10:33 AM TAPE COATER HEMOGLOBIN A1C Routine 11/06/2021 8:28 PM CDT LIPID PANEL Routine 07/29/2017 4:39 AM TAPE COATER from Last 3 Months or Most Recently Relevant to Health Maintenance Results * (ABNORMAL) eGFR (09/03/2024 10:33 AM TAPE COATER) eGFR 32(L) >=60 mL/min/1. 73 m2 Comment: [...] reviewed 2021. Blood 09/03/2024 10:3 3 AM TAPE COATER 09/03/2024 10:36 AM TAPE COATER us Dandre Geronimo MD LAB BLOOD ORDERABLES Final R esult ANGELIQUE [facility]) [address] [facility] Department of Laboratories [place] [id number] * (ABNORMAL) Hemoglobin A1c (11/06/2021 8:28 PM CDT) Hgb A1C 6.8(H) 4.0 - 5.6 % ANGELIQUE Estimated Average Glucose 148 mg/dL ANGELIQUE Comment: The ADA recommends reporting an estimated Average Glucose (eAG) with all Hemoglobin A1c results using the equation derived from a study of 507 normal and diabetic adults. Minority populations were underrepresented and children were not included. (Diabetes Care 31:9680-1575, 2008). The eAG is not equivalent to a fasting glucose. Blood 11/06/2021 8:28 PM CDT 11/06/2021 8:45 PM CDT us Bebeto Darden MD LAB BLOOD ORDERABLES Final Result [facility] [address] [facility] Department [place] [address] * (ABNORMAL) Lipid panel (07/29/2017 4:39 AM TAPE COATER) Cholesterol 182 40 - 199 mg/dL ANGELIQUE PINEDA ([place]) Comment: Interpretive Data Desirable: Less than 200 [...] 2014. Blood specimen (specimen) 07/29/2017 4:39 AM TAPE COATER 07/29/2017 5:11 AM TAPE COATER Narrative ANGELIQUE PINEDA ([place]) - 07/29/2017 6:22 AM TAPE COATER Jr Thomas MD LAB BLOOD ORDERABLES Final Resul t ANGELIQUE PINEDA ([place]) [address] [facility] [place] [address] from Last 3 Months or Most Recently Relevant to Health Maintenance Insurance [employer] MEDICARE HMO [facility] MEDICARE ADVANTAGE [facility] MEDICARE ADVANTAGE [facility] Advance Directives For more information, please contact: [phone] * Full Code (Latest Code Status on File) Date Activated Date Inactivated Comments 11/13/2021 11:09 PM 11/19/2021 8:47 PM * Full Code Date Activated Date Inactivated Comments 11/06/2021 8:16 PM 11/12/2021 8:24 PM * Full Code Date Activated Date Inactivated Comments 07/28/2017 7:26 AM 07/29/2017 5:48 PM Care Teams Bottle Line Worker Relationship Specialty Start Date End Date Zena Soria NP [address] [place] [address] PCP - General Nurse Practitioner 10/16/24
== END 2025-04-08 12:04 | disposition home or self-care (01) ==
PROVIDERS: PCP Nurse Practitioner Adult Health; Visit Provider Internal Medicine Nephrology
DX: E11.29 Type 2 diabetes mellitus with other diabetic kidney complication (principal); N18.32 Chronic kidney disease, stage 3b
CPT/HCPCS: 36415; 80069; 82570; 83036; 83970; 84156; 84443; 85027